=== PATIENT | female | born 1990 | race Caucasian/White ===

== ENCOUNTER 2023-04-13 05:07 | Emergency (ER) | payer OTHER, SELFPAY ==
--- OUTSIDE RECORDS SUMMARY | 2023-04-13 05:18 | XMS REPORT | Continuity of Care Document ---
:1990 Author Organization [facility] t Address [address] [place] [address] [address] [place] [address] Care Team Providers Name Role Phone GRADY JUÁREZ Primary Care Physician Unavailable Vida Louis Attending Clinician Unavailable CARMELA MEDRANO Attending Clinician Unavailable Carmela Medrano DO Attending Clinician ARIANA HERNANDEZ Attending Clinician Unavailable BETO MCCAULEY Attending Clinician Unavailable JOSE OLIVER Attending Clinician Unavailable Jose Oliver MD Attending Clinician Christiane Gallo DO Attending Clinician Nadege Benjamin DO Attending Clinician Pcp-Lab Attending Clinician Unavailable Ariana Hernandez DO Attending Clinician Beto Mccauley MD Attending Clinician Grady Juárez DO Attending Clinician LUIS AREVALO Attending Clinician Unavailable KELLY WHITE Attending Clinician Unavailable PETER PATEL Attending Clinician Unavailable Tonya Kilgore Attending Clinician Unavailable Susie Lawton MD Attending Clinician SUSIE LAWTON Attending Clinician Unavailable STEEN KELTON Attending Clinician Unavailable Luis Arevalo DO Attending Clinician [phone] Federico Hernandez MD Attending Clinician FEDERICO HERNANDEZ Attending Clinician Unavailable Doctor Unassigned, [place] Attending Clinician Unavailable PERNELL MYLES Attending Clinician Unavailable UNKNOWN, ATTENDING Attending Clinician Unavailable Eli CORTES, Mikal Attending Clinician Unknown, Attending Attending Clinician Unavailable RANDI MARCOS Attending Clinician Unavailable Ashkan Montgomery DO Attending Clinician Randi Marcos MD Attending Clinician Rodri PACK, Margot Attending Clinician Roxanna VELAZQUEZ, Samantha Hazel Attending Clinician Charles CORTES, Kyaw Patel Attending Clinician KYAW SOTO Attending Clinician Unavailable Carmela Rawls MD Attending Clinician Leonel Stockton MD Attending Clinician Сергей Dale MD Attending Clinician Mary Javier Attending Clinician Unavailable Janice Alexis Attending Clinician Unavailable Talisha Kate Attending Clinician Deidre [facility]y F Attending Clinician Unavailable LUCIA PINEDA Attending Clinician Unavailable Mihai Pena MD Attending Clinician Pallavi Chong MD Attending Clinician Lucia Pineda MD Attending Clinician Ramon Prasad Attending Clinician Unavailable SAHIL OWENS Attending Clinician Unavailable Chiquita Grady Attending Clinician Unavailable Viky Owusu RN Attending Clinician Dary Wang Attending Clinician Lluvia Juárez Attending Clinician Unavailable Ted Price Attending Clinician Unavailable Ezio Cordova Attending Clinician Unavailable Physician, No Primary or Family Admitting Clinician UnavailJOSE Frank Admitting Clinician Unavailable KYAW SOTO Admitting Clinician Unavailable Leonel Stockton MD Admitting Clinician PALLAVI CHONG Admitting Clinician Unavailable Pallavi Chong MD Admitting Clinician SAHIL OWENS Admitting Clinician Unavailable Payers Payer Name Policy Type Policy Number Effective Date Expiration Date [facility] [id number] 2021 CHOICE MEDICAID 00:00:00 Problems Condition Condition Condition Status Onset Resolution Last Treating Co mments Source Name Details Category Date Date Treatment Clinician Date Vaginal Vaginal Disease Active 2021-10 Univers discharge discharge 1-14 ity of 00:: Medical Branch Diarrhea, Diarrhea, Disease Active 2021-10 Uni vers unspecifie unspecifie 1-14 it y of d type d type 00:00: Medical Branch Hand Hand Disease Active 2021-10 Univers weakness weakness 1-14 ity of 00:00: Medical Branch Gastropare Gastropare Disease Active U nivers sis due to sis due to 4-04 it y of DM DM 00:00: Medical Branch Hypothyroi Hypothyroi Disease Active U nivers dism dism 3-25 ity of 00:00: Medical Branch Bilateral Bilateral Disease Active Uni vers hand hand 3-25 ity of swelling swelling 00:00: Medical Branch History of History of Disease Active U nivers substance substance 3-25 ity of abuse abuse 00:00: Medical Branch Diabetes Diabetes Disease Active Unive rs mellitus mellitus 6-05 ity of type 1 type 1 00:00: Medical Branch Hyperlipid Hyperlipid Disease Recurre Univers emia emia nce 6-05 ity of 00:00: Medical Branch Anxiety Anxiety Disease Active Univers 6-04 ity of 00:00: Medical Branch GERD GERD Disease Active Univers (gastroeso (gastroeso 6- it y of phageal phageal 00:00: [place] reflux reflux 00 Medical disease) disease) Branch Allergies, Adverse Reactions, Alerts Allergy Allergy Status Severity Reaction(s) Onset Inactive Treating Comm ents Source Name Type Date Date Clinician No Known DA Active U [facility] Allergie 5-29 Clear s 00:00: Vill[place] 00 [facility] CODEINE DRUG Active ITCHING Univers INGREDI 7-03 ity of 00:00: [place] 00 [facility] Branch Codeine Propensi Active Itching Univer s ty to 703 ity of adverse 00:00: [place] reaction 00 Medical s Branch No Known DA Active U [facility] Allergie 6-14 Clear s 00:00: [place] 00 [facility] Social History Social Habit Start Date Stop Date Quantity Comments Source Alcohol intake 2023-03-05 2023-03-05 Current University of 00:00:00 00:00:00 non-drinker of [facility] alcohol Branch (finding) Exposure to 2022-12-31 2023-01-10 Not sure University of SARS-CoV-2 (event) 00:00:00 12:43:00 [facility] Cigarettes smoked 2014-07-01 2014-07-01 Univers ity of current (pack per 00:00:00 00:00:00 [facility] ) - Reported Branch Cigarette 2014-07-01 2014-07-01 University of pack-years 00:00:00 00:00:00 [facility] Tobacco Comment 2014-07-01 2014-07-01 e-cigarettes Univers ity of 00:00:00 00:00:00 since February 2014; [place] Med ical daily use Branch Tobacco use and 2014-07-01 2014-07-01 Former smokeless Uni versity of exposure 00:00:00 00:00:00 tobacco user [place] Medic l [place] History of tobacco 2014-03-07 Cigarette Smoker University of use 00:00:00 [facility] Sex Ass[birth year] At [birth year] Universit y of 00:00:00 00:00:00 [facility] Smoking Status Start Date Stop Date Source Occasional tobacco smoker 2014-07-01 00:00:00 Un iversity of [facility] Medications Ordered Filled Start Stop Current Ordering Indication Dosage Frequency Signature Comments Components Source Medication Medication Date Date Medication? Clinician (SIG) Name Name NaCl 0.9% 2022- 1000mL at 999 Uni vers (NS) bolus 03-05 05-23 mL/hr, ity of infusion 18:15: 19:21 1,000 mL, [place] 1,000 mL 00 :00 IV Medical Infusion, Branch ONCE, 1 dose, On 03/05/23 at 1315, STAT insulin 2022- No 6U 6 Units, Unive rs regular 01-10 Slow IV ity of human 20:30: 19:45 Push, [place] (HUMULIN R) 00 :00 ONCE, 1 Medic al injection 6 dose, On Bran ch Units Johanne 01/10/23 at 1530, STAT
In dication for insulin: Hyperglyce shimon levETIRAcet 2022- No 1000mg 1,000 mg, Univers am (KEPPRA) 01-10 IV ity of in NACL 19:45: 20:02 Piggyback, [place] (ISO-OS) 00 :00 ONCE, 1 Medical 1,000 dose, On Branch mg/100 mL Johanne RTU 01/10/23 at 1445, Administer over 15 Minutes, 100 mL NaCl 0.9% 2022- No 2000mL at 999 Uni vers (NS) bolus 01-1030 mL/hr, ity of infusion 19:45: 22:57 2,000 mL, [place] 2,000 mL 00 :00 IV Medical Infusion, Branch ONCE, 1 dose, On Johanne 01/10/23 at 1445, STAT levETIRAcet 0 Yes [id number] 500mg Take 1 Univers am (KEPPRA) 3-30 tablet by ity of 500 mg 00:00: mouth in [place] tablet 00 the Medical morning Branch and 1 tablet in the evening. levETIRAcet 2022-0 Yes [id number] 500mg Take 1 Univers am (KEPPRA) 3-30 tablet by ity of 500 mg 00:00: mouth in [place] tablet 00 the Medical morning Branch and 1 tablet in the evening. gabapentin 2022-0 Yes [id number] 200mg Take 2 Univers 100 mg 3-27 capsules ity of capsule 00:00: by mouth [place] 00 in the Medical morning Branch and 2 capsules at noon and 2 capsules in the evening. gabapentin 2022-0 Yes [id number] 200mg Take 2 Univers 100 mg 3-27 capsules ity of capsule 00:00: by mouth [place] 00 in the Medical morning Branch and 2 capsules at noon and 2 capsules in the evening. gabapentin 3-0 Yes [id number] 200mg Take 2 Univers 100 mg 3-27 capsules ity of capsule 00:00: by mouth [place] 00 in the Medical morning Branch and 2 capsules at noon and 2 capsules in the evening. TRESIBA 2022-0 Yes [id number] INJECT 22 Univers FLEXTOUCH 2-27 UNITS ity of U-100 100 00:00: UNDER THE [place] unit/mL (3 00 SKIN AT Medica l mL) InPn BEDTIME. Branch TRESIBA 2022-0 Yes [id number] INJECT 22 Univers FLEXTOUCH 2-27 UNITS ity of U-100 100 00:00: UNDER THE [place] unit/mL (3 00 SKIN AT Medica l mL) InPn BEDTIME. Branch TRESIBA 2022-0 Yes [id number] INJECT 22 Univers FLEXTOUCH 2-27 UNITS ity of U-100 100 00:00: UNDER THE [place] unit/mL (3 00 SKIN AT Medica l mL) InPn BEDTIME. Branch TRESIBA 2022-0 Yes [id number] INJECT 22 Univers FLEXTOUCH 2-27 UNITS ity of U-100 100 00:00: UNDER THE [place] unit/mL (3 00 SKIN AT Medica l mL) InPn BEDTIME. Branch metoclopram 3-0 Yes [id number] 10mg Take 10 mL Univers guadalupe HCl 5 2-02 by mouth ity of mg/5 mL 00:00: in the [place] solution 00 morning Medical and 10 mL Branch at noon and 10 mL in the evening. Take with meals. metoclopram 3-0 Yes [id number] 10mg Take 10 mL Univers guadalupe HCl 5 2-02 by mouth ity of mg/5 mL 00:00: in the [place] solution 00 morning Medical and 10 mL Branch at noon and 10 mL in the evening. Take with meals. metoclopram 2023-0 Yes [id number] 10mg Take 10 mL Univers guadalupe HCl 5 2-02 by mouth ity of mg/5 mL 00:00: in the [place] solution 00 morning Medical and 10 mL Branch at noon and 10 mL in the evening. Take with meals. metoclopram 2023-0 Yes [id number] 10mg Take 10 mL Univers guadalupe HCl 5 2-02 by mouth ity of mg/5 mL 00:00: in the [place] solution 00 morning Medical and 10 mL Branch at noon and 10 mL in the evening. Take with meals. proMETHazin Yes [id number] 12.5mg Take 1 Univers e 12.5 mg 1-26 tablet by ity o f tablet 00:00: mouth [place] 00 every 4 Medical (four) Branch hours as needed for Nausea and Vomiting (N/V). proMETHazin Yes [id number] 12.5mg Take 1 Univers e 12.5 mg 1-26 tablet by ity o f tablet 00:00: mouth [place] 00 every 4 Medical (four) Branch hours as needed for Nausea and Vomiting (N/V). proMETHazin Yes [id number] 12.5mg Take 1 Univers e 12.5 mg 1-26 tablet by ity o f tablet 00:00: mouth [place] 00 every 4 Medical (four) Branch hours as needed for Nausea and Vomiting (N/V). proMETHazin Yes [id number] 12.5mg Take 1 Univers e 12.5 mg 1-26 tablet by ity o f tablet 00:00: mouth [place] 00 every 4 Medical (four) Branch hours as needed for Nausea and Vomiting (N/V). proMETHazin Yes [id number] 12.5mg Take 1 Univers e 12.5 mg 1-26 tablet by ity o f tablet 00:00: mouth [place] 00 every 4 Medical (four) Branch hours as needed for Nausea and Vomiting (N/V). proMETHazin Yes [id number] 12.5mg Take 1 Univers e 12.5 mg 1-26 tablet by ity o f tablet 00:00: mouth [place] 00 every 4 Medical (four) Branch hours as needed for Nausea and Vomiting (N/V). omeprazole 2021-10 Yes [id number] 40mg Take 1 Univers 40 mg 2-29 capsule by ity of capsule 00:00: mouth in [place] 00 the Medical morning. Branch levothyroxi 2021-10 Yes [id number] 100ug Take 1 Univers ne 100 mcg 2-29 tablet by ity of tablet 00:00: mouth [place] 00 every Medical morning. Branch insulin 2021-10 Yes [id number] 22U inject 22 Univers degludec 2-29 Units ity of (TRESIBA 00:00: [place] FLEXTOUCH 00 skin at Medical U-100) 100 bedtime. Branc h unit/mL (3 mL) InPn insulin 2021-10 Yes [id number] 5U inject 5 U nivers aspart 2-29 Units ity of U-100 00:00: under the [place] (NOVOLOG 00 skin 4 Medical FLEXPEN (four) Branch U-100 times INSULIN) daily with 100 unit/mL meals or (3 mL) snack. injection atorvastati 2021-10 Yes [id number] 40mg Take 1 Univers n (LIPITOR) 2-29 tablet by ity of 40 mg 00:00: mouth at [place] tablet 00 bedtime. Medical Branch DULoxetine 2021-10 Yes [id number] 90mg Take 3 U nivers 30 mg 2-29 capsules ity of capsule 00:00: by mouth [place] 00 in the Medical morning. Branch gabapentin 2021-10 Yes [id number] 200mg Take 2 Univers 100 mg 2-29 capsules ity of capsule 00:00: by mouth [place] 00 in the Medical morning Branch and 2 capsules at noon and 2 capsules in the evening. omeprazole 2021-10 Yes 40mg Take 1 Unive rs 40 mg 2-29 capsule by ity of capsule 00:00: mouth in [place] 00 the Medical morning. Branch levothyroxi 2021-10 Yes [id number] 100ug Take 1 Univers ne 100 mcg 2-29 tablet by ity of tablet 00:00: mouth [place] 00 every Medical morning. Branch insulin 2021-10 Yes [id number] 22U inject 22 Univers degludec 2-29 Units ity of (TRESIBA [facility] skin at Medical U-100) 100 bedtime. Branc h unit/mL (3 mL) InPn insulin 2021-10 Yes [id number] 5U inject 5 U nivers aspart 2-29 Units ity of U-100 00:00: under the [place] (NOVOLOG 00 skin 4 Medical FLEXPEN (four) Branch U-100 times INSULIN) daily with 100 unit/mL meals or (3 mL) snack. injection atorvastati 2021-10 Yes [id number] 40mg Take 1 Univers n (LIPITOR) 2-29 tablet by ity of 40 mg 00:00: mouth at [place] tablet 00 bedtime. Medical Branch DULoxetine 2021-10 Yes [id number] 90mg Take 3 U nivers 30 mg 2-29 capsules ity of capsule 00:00: by mouth [place] 00 in the Medical morning. Branch gabapentin 2021-10 Yes [id number] 200mg Take 2 Univers 100 mg 2-29 capsules ity of capsule 00:00: by mouth [place] 00 in the Medical morning Branch and 2 capsules at noon and 2 capsules in the evening. omeprazole 2021-10 Yes 40mg Take 1 Unive rs 40 mg 2-29 capsule by ity of capsule 00:00: mouth in [place] 00 the Medical morning. Branch levothyroxi 2021-10 Yes [id number] 100ug Take 1 Univers ne 100 mcg 2-29 tablet by ity of tablet 00:00: mouth [place] 00 every Medical morning. Branch insulin 2021-10 Yes [id number] 22U inject 22 Univers degludec 2-29 Units ity of (TRESIBA 00:00: [facility] skin at Medical U-100) 100 bedtime. Branc h unit/mL (3 mL) InPn insulin 2021-10 Yes [id number] 5U inject 5 U nivers aspart 2-29 Units ity of U-100 00:00: under the [place] (NOVOLOG 00 skin 4 Medical FLEXPEN (four) Branch U-100 times INSULIN) daily with 100 unit/mL meals or (3 mL) snack. injection atorvastati 2021-10 Yes [id number] 40mg Take 1 Univers n (LIPITOR) 2-29 tablet by ity of 40 mg 00:00: mouth at [place] tablet 00 bedtime. Medical Branch DULoxetine 2021-10 Yes [id number] 90mg Take 3 U nivers 30 mg 2-29 capsules ity of capsule 00:00: by mouth [place] 00 in the Medical morning. Branch gabapentin 2021-10 Yes [id number] 200mg Take 2 Univers 100 mg 2-29 capsules ity of capsule 00:00: by mouth [place] 00 in the Medical morning Branch and 2 capsules at noon and 2 capsules in the evening. omeprazole 2021-10 Yes 40mg Take 1 Unive rs 40 mg 2-29 capsule by ity of capsule 00:00: mouth in [place] 00 the Medical morning. Branch levothyroxi 2021-10 Yes [id number] 100ug Take 1 Univers ne 100 mcg 2-29 tablet by ity of tablet 00:00: mouth [place] 00 every Medical morning. Branch insulin 2021-10 Yes [id number] 22U inject 22 Univers degludec 2-29 Units ity of (TRESIBA 00:00: [facility] skin at Medical U-100) 100 bedtime. Branc h unit/mL (3 mL) InPn insulin 2021-10 Yes [id number] 5U inject 5 U nivers aspart 2-29 Units ity of U-100 00:00: under the [place] (NOVOLOG 00 skin 4 Medical FLEXPEN (four) Branch U-100 times INSULIN) daily with 100 unit/mL meals or (3 mL) snack. injection atorvastati 2021-10 Yes [id number] 40mg Take 1 Univers n (LIPITOR) 2-29 tablet by ity of 40 mg 00:00: mouth at [place] tablet 00 bedtime. Medical Branch DULoxetine 2021-10 Yes [id number] 90mg Take 3 U nivers 30 mg 2-29 capsules ity of capsule 00:00: by mouth [place] 00 in the Medical morning. Branch gabapentin 2021-10 Yes [id number] 200mg Take 2 Univers 100 mg 2-29 capsules ity of capsule 00:00: by mouth [place] 00 in the Medical morning Branch and 2 capsules at noon and 2 capsules in the evening. omeprazole 2021-10 Yes 40mg Take 1 Unive rs 40 mg 2-29 capsule by ity of capsule 00:00: mouth in [place] 00 the Medical morning. Branch levothyroxi 2021-10 Yes [id number] 100ug Take 1 Univers ne 100 mcg 2-29 tablet by ity of tablet 00:00: mouth [place] 00 every Medical morning. Branch insulin 2021-10 Yes [id number] 22U inject 22 Univers degludec 2-29 Units ity of (TRESIBA 00:00: [facility] skin at Medical U-100) 100 bedtime. Branc h unit/mL (3 mL) InPn insulin 2021-10 Yes [id number] 5U inject 5 U nivers aspart 2-29 Units ity of U-100 00:00: under the [place] (NOVOLOG 00 skin 4 Medical FLEXPEN (four) Branch U-100 times INSULIN) daily with 100 unit/mL meals or (3 mL) snack. injection atorvastati 2021-10 Yes [id number] 40mg Take 1 Univers n (LIPITOR) 2-29 tablet by ity of 40 mg 00:00: mouth at [place] tablet 00 bedtime. Medical Branch DULoxetine 2021-10 Yes [id number] 90mg Take 3 U nivers 30 mg 2-29 capsules ity of capsule 00:00: by mouth [place] 00 in the Medical morning. Branch gabapentin 2021-10 Yes [id number] 200mg Take 2 Univers 100 mg 2-29 capsules ity of capsule 00:00: by mouth [place] 00 in the Medical morning Branch and 2 capsules at noon and 2 capsules in the evening. omeprazole 2021-10 Yes 40mg Take 1 Unive rs 40 mg 2-29 capsule by ity of capsule 00:00: mouth in [place] 00 the Medical morning. Branch levothyroxi 2021-10 Yes [id number] 100ug Take 1 Univers ne 100 mcg 2-29 tablet by ity of tablet 00:00: mouth [place] 00 every Medical morning. Branch insulin 2021-10 Yes [id number] 22U inject 22 Univers degludec 2-29 Units ity of (TRESIBA 00:00: [facility] skin at Medical U-100) 100 bedtime. Branc h unit/mL (3 mL) InPn insulin 2021-10 Yes [id number] 5U inject 5 U nivers aspart 2-29 Units ity of U-100 00:00: under the [place] (NOVOLOG 00 skin 4 Medical FLEXPEN (four) Branch U-100 times INSULIN) daily with 100 unit/mL meals or (3 mL) snack. injection atorvastati 2021-10 Yes [id number] 40mg Take 1 Univers n (LIPITOR) 2-29 tablet by ity of 40 mg 00:00: mouth at [place] tablet 00 bedtime. Medical Branch DULoxetine 2021-10 Yes [id number] 90mg Take 3 U nivers 30 mg 2-29 capsules ity of capsule 00:00: by mouth [place] 00 in the Medical morning. Branch gabapentin 2021-10 Yes [id number] 200mg Take 2 Univers 100 mg 2-29 capsules ity of capsule 00:00: by mouth [place] 00 in the Medical morning Branch and 2 capsules at noon and 2 capsules in the evening. omeprazole 2021-10 Yes 40mg Take 1 Unive rs 40 mg 2-29 capsule by ity of capsule 00:00: mouth in [place] 00 the Medical morning. Branch levothyroxi 2021-10 Yes [id number] 100ug Take 1 Univers ne 100 mcg 2-29 tablet by ity of tablet 00:00: mouth [place] 00 every Medical morning. Branch insulin 2021-10 Yes [id number] 22U inject 22 Univers degludec 2-29 Units ity of (TRESIBA 00:00: [place] the [place] FLEXTOUCH 00 skin at Medical U-100) 100 bedtime. Branc h unit/mL (3 mL) InPn insulin 2021-10 Yes [id number] 5U inject 5 U nivers aspart 2-29 Units ity of U-100 00:00: under the [place] (NOVOLOG 00 skin 4 Medical FLEXPEN (four) Branch U-100 times INSULIN) daily with 100 unit/mL meals or (3 mL) snack. injection atorvastati 2021-10 Yes [id number] 40mg Take 1 Univers n (LIPITOR) 2-29 tablet by ity of 40 mg 00:00: mouth at [place] tablet 00 bedtime. Medical Branch DULoxetine 2021-10 Yes [id number] 90mg Take 3 U nivers 30 mg 2-29 capsules ity of capsule 00:00: by mouth [place] 00 in the Medical morning. Branch gabapentin 2021-10 Yes [id number] 200mg Take 2 Univers 100 mg 2-29 capsules ity of capsule 00:00: by mouth [place] 00 in the Medical morning Branch and 2 capsules at noon and 2 capsules in the evening. omeprazole 2021-10 Yes 40mg Take 1 Unive rs 40 mg 2-29 capsule by ity of capsule 00:00: mouth in [place] 00 the Medical morning. Branch levothyroxi 2021-10 Yes [id number] 100ug Take 1 Univers ne 100 mcg 2-29 tablet by ity of tablet 00:00: mouth [place] 00 every Medical morning. Branch insulin 2021-10 Yes [id number] 5U inject 5 U nivers aspart 2-29 Units ity of U-100 00:00: under the [place] (NOVOLOG 00 skin 4 Medical FLEXPEN (four) Branch U-100 times INSULIN) daily with 100 unit/mL meals or (3 mL) snack. injection atorvastati 2021-10 Yes [id number] 40mg Take 1 Univers n (LIPITOR) 2-29 tablet by ity of 40 mg 00:00: mouth at [place] tablet 00 bedtime. Medical Branch DULoxetine 2021-10 Yes [id number] 90mg Take 3 U nivers 30 mg 2-29 capsules ity of capsule 00:00: by mouth [place] 00 in the Medical morning. Branch gabapentin 2021-10 Yes [id number] 200mg Take 2 Univers 100 mg 2-29 capsules ity of capsule 00:00: by mouth [place] 00 in the Medical morning Branch and 2 capsules at noon and 2 capsules in the evening. omeprazole 2021-10 Yes 40mg Take 1 Unive rs 40 mg 2-29 capsule by ity of capsule 00:00: mouth in [place] 00 the Medical morning. Branch levothyroxi 2021-10 Yes [id number] 100ug Take 1 Univers ne 100 mcg 2-29 tablet by ity of tablet 00:00: mouth [place] 00 every Medical morning. Branch insulin 2021-10 Yes [id number] 5U inject 5 U nivers aspart 2-29 Units ity of U-100 00:00: under the [place] (NOVOLOG 00 skin 4 Medical FLEXPEN (four) Branch U-100 times INSULIN) daily with 100 unit/mL meals or (3 mL) snack. injection atorvastati 2021-10 Yes [id number] 40mg Take 1 Univers n (LIPITOR) 2-29 tablet by ity of 40 mg 00:00: mouth at [place] tablet 00 bedtime. Medical Branch DULoxetine 2021-10 Yes [id number] 90mg Take 3 U nivers 30 mg 2-29 capsules ity of capsule 00:00: by mouth [place] 00 in the Medical morning. Branch omeprazole 2021-10 Yes 40mg Take 1 Unive rs 40 mg 2-29 capsule by ity of capsule 00:00: mouth in [place] 00 the Medical morning. Branch levothyroxi 2021-10 Yes [id number] 100ug Take 1 Univers ne 100 mcg 2-29 tablet by ity of tablet 00:00: mouth [place] 00 every Medical morning. Branch insulin 2021-10 Yes [id number] 5U inject 5 U nivers aspart 2-29 Units ity of U-100 00:00: under the [place] (NOVOLOG 00 skin 4 Medical FLEXPEN (four) Branch U-100 times INSULIN) daily with 100 unit/mL meals or (3 mL) snack. injection atorvastati 2021-10 Yes [id number] 40mg Take 1 Univers n (LIPITOR) 2-29 tablet by ity of 40 mg 00:00: mouth at [place] tablet 00 bedtime. Medical Branch DULoxetine 2021-10 Yes [id number] 90mg Take 3 U nivers 30 mg 2-29 capsules ity of capsule 00:00: by mouth [place] 00 in the Medical morning. Branch omeprazole 2021-10 Yes 40mg Take 1 Unive rs 40 mg 2-29 capsule by ity of capsule 00:00: mouth in [place] 00 the Medical morning. Branch levothyroxi 2021-10 Yes [id number] 100ug Take 1 Univers ne 100 mcg 2-29 tablet by ity of tablet 00:00: mouth [place] 00 every Medical morning. Branch insulin 2021-10 Yes [id number] 5U inject 5 U nivers aspart 2-29 Units ity of U-100 00:00: under the [place] (NOVOLOG 00 skin 4 Medical FLEXPEN (four) Branch U-100 times INSULIN) daily with 100 unit/mL meals or (3 mL) snack. injection atorvastati 2021-10 Yes [id number] 40mg Take 1 Univers n (LIPITOR) 2-29 tablet by ity of 40 mg 00:00: mouth at [place] tablet 00 bedtime. Medical Branch DULoxetine 2021-10 Yes [id number] 90mg Take 3 U nivers 30 mg 2-29 capsules ity of capsule 00:00: by mouth [place] 00 in the Medical morning. Branch gabapentin 2021-10- No [id number] 200mg Take 2 Univers 100 mg 2-29 03-27 capsules ity of capsule 00:00: 00:00 by mouth [place] 00 :00 in the Medical morning Branch and 2 capsules at noon and 2 capsules in the evening. insulin 2021-10- No [id number] 22U inject 22 Univers degludec 2-29 02-27 Units ity of (TRESIBA 00:00: 00:00 under the [place] FLEXTOUCH 00 :00 skin at Medical U-100) 100 bedtime. Branc h unit/mL (3 mL) InPn fluconazole 2021-10- No [id number] 150mg Take 1 Univers (DIFLUCAN) 2- 12-30 tablet by ity of 150 mg 00:00: 05:59 mouth [place] tablet 00 :00 now for 1 Medical dose. Branch fluconazole 2021-10- No [id number] 150mg Take 1 Univers (DIFLUCAN) 2- 12-30 tablet by ity of 150 mg 00:00: 05:59 mouth [place] tablet 00 :00 now for 1 Medical dose. Branch fluconazole 2021-10- No [id number] 150mg Take 1 Univers (DIFLUCAN) 2- 12-30 tablet by ity of 150 mg 00:00: 05:59 mouth [place] tablet 00 :00 now for 1 Medical dose. Branch fluconazole 2021-10- No [id number] 150mg Take 1 Univers (DIFLUCAN) 2- 12-30 tablet by ity of 150 mg 00:00: 05:[place] 00 :00 now for 1 Medical dose. Branch pregabalin 2021-10- No [id number] 25mg Take 1 [facility] (LYRICA) 25 2-29 12-29 capsule by i ty of mg capsule 00:00: 00:00 mouth in [place] 00 :00 the Medical morning Branch and 1 capsule at noon and 1 capsule in the evening. pregabalin 2021-10- No [id number] 25mg Take 1 [facility] (LYRICA) 25 2-29 12-29 capsule by i ty of mg capsule 00:00: 00:00 mouth in [place] 00 :00 the Medical morning Branch and 1 capsule at noon and 1 capsule in the evening. pregabalin 2021-10- No [id number] 25mg Take 1 [facility] (LYRICA) 25 2-29 12-29 capsule by i ty of mg capsule 00:00: 00:00 mouth in [place] 00 :00 the Medical morning Branch and 1 capsule at noon and 1 capsule in the evening. insulin 2021-10 Yes [id number] 5U inject 5 U nivers aspart 2-07 Units ity of U-100 00:00: under the [place] (NOVOLOG 00 skin 4 Medical FLEXPEN (four) Branch U-100 times INSULIN) daily with 100 unit/mL meals or (3 mL) snack. injection insulin 2021-10- No [id number] 5U inject 5 [facility] aspart 2-07 12-29 Units ity of U-100 00:00: 00:00 under the [place] (NOVOLOG 00 :00 skin 4 Medical FLEXPEN (four) Branch U-100 times INSULIN) daily with 100 unit/mL meals or (3 mL) snack. injection insulin 2021-10- No [id number] 5U inject 5 [facility] aspart 2- 12-29 Units ity of U-100 00:00: 00:00 under the [place] (NOVOLOG 00 :00 skin 4 Medical FLEXPEN (four) Branch U-100 times INSULIN) daily with 100 unit/mL meals or (3 mL) snack. injection insulin 2021-10- No [id number] 5U inject 5 [facility] aspart 2 12-29 Units ity of U-100 00:00: 00:00 under the [place] (NOVOLOG 00 :00 skin 4 Medical FLEXPEN (four) Branch U-100 times INSULIN) daily with 100 unit/mL meals or (3 mL) snack. injection insulin 2021-10 Yes [id number] 22U INJECT 22 [facility] degludec 1-29 UNITS ity of (TRESIBA 00:00: [place] FLEXTOUCH 00 SKIN AT Medical U-100) 100 BEDTIME. Branc h unit/mL (3 mL) InPn insulin 2021-10 Yes [id number] 22U INJECT 22 [facility] degludec 1-29 UNITS ity of (TRESIBA 00:00: [place] FLEXTOUCH 00 SKIN AT Medical U-100) 100 BEDTIME. Branc h unit/mL (3 mL) InPn insulin 2021-10- No [id number] 22U INJECT 22 [facility] degludec 1-29 12-29 UNITS ity of (TRESIBA 00:00: 00:00 UNDER THE [place] FLEXTOUCH 00 :00 SKIN AT Medical U-100) 100 BEDTIME. Branc h unit/mL (3 mL) InPn insulin 2021-10- No [id number] 22U INJECT 22 [facility] degludec 1-29 12-29 UNITS ity of (TRESIBA 00:00: 00:00 UNDER THE [place] FLEXTOUCH 00 :00 SKIN AT Medical U-100) 100 BEDTIME. Branc h unit/mL (3 mL) InPn insulin 2021-10- No [id number] 22U INJECT 22 [facility] degludec 1-29 12-29 UNITS ity of (TRESIBA 00:00: 00:00 UNDER THE [place] FLEXTOUCH 00 :00 SKIN AT Medical U-100) 100 BEDTIME. Branc h unit/mL (3 mL) InPn metroNIDAZO 2021-10- No [id number] 500mg Take 2 [facility] LE 250 mg 1-17 11-27 tablets by ity of tablet 00:00: 05:59 mouth [place] 00 :00 every 12 [facility] ([facility] Branch hours for 9 days. metroNIDAZO 2021-10- No [id number] 500mg Take 2 [facility] LE 250 mg 1-17 11-27 tablets by ity of tablet 00:00: 05:59 mouth [place] 00 :00 every 12 [facility] ([facility]) [place] hours for 9 days. gabapentin 2021-10 Yes [id number] 100mg Take 1 [facility] 100 mg 1-14 capsule by ity of capsule 00:00: mouth in [place] [address] the [facility] and 1 capsule at noon and 1 capsule in the evening. naproxen 2021-10 Yes [id number] 250mg Take 1 [place] 250 mg 1-14 tablet by ity of tablet 00:00: mouth in [place] [address] the [facility] and 1 tablet in the evening. Take with meals. gabapentin 2021-10 Yes [id number] 100mg Take 1 [facility] 100 mg 1-14 capsule by ity of capsule 00:00: mouth in [place] [address] the [facility] and 1 capsule at noon and 1 capsule in the evening. naproxen 2021-10 Yes [id number] 250mg Take 1 [place] 250 mg 1-14 tablet by ity of tablet 00:00: mouth in [place] [address] the [facility] and 1 tablet in the evening. Take with meals. gabapentin 2021-10 Yes [id number] 100mg Take 1 [facility] 100 mg 1-14 capsule by ity of capsule 00:00: mouth in [address] and 1 capsule at noon and 1 capsule in the evening. naproxen 2021-10 Yes [id number] 250mg Take 1 [place] 250 mg 1-14 tablet by ity of tablet 00:00: mouth in [address] morning [place] and 1 tablet in the evening. Take with meals. gabapentin 2021-10 Yes [id number] 100mg Take 1 [facility] 100 mg 1-14 capsule by ity of capsule 00:00: mouth in [address] morning [place] and 1 capsule at noon and 1 capsule in the evening. naproxen 2021-10 Yes [id number] 250mg Take 1 [place] 250 mg 1-14 tablet by ity of tablet 00:00: mouth in [address] morning [place] and 1 tablet in the evening. Take with meals. gabapentin 2021-10 Yes [id number] 100mg Take 1 [facility] 100 mg 1-14 capsule by ity of capsule 00:00: mouth in [address] and 1 capsule at noon and 1 capsule in the evening. naproxen 2021-10 Yes [id number] 250mg Take 1 [place] 250 mg 1-14 tablet by ity of tablet 00:00: mouth in [address] and 1 tablet in the evening. Take with meals. gabapentin 2021-10 Yes [id number] 100mg Take 1 [facility] 100 mg 1-14 capsule by ity of capsule 00:00: mouth in [address] and 1 capsule at noon and 1 capsule in the evening. naproxen 2021-10 Yes [id number] 250mg Take 1 [place] 250 mg 1-14 tablet by ity of tablet 00:00: mouth in [address] and 1 tablet in the evening. Take with meals. gabapentin 2021-10 Yes [id number] 100mg Take 1 [facility] 100 mg 1-14 capsule by ity of capsule 00:00: mouth in [address] and 1 capsule at noon and 1 capsule in the evening. naproxen 2021-10 Yes [id number] 250mg Take 1 [place] 250 mg 1-14 tablet by ity of tablet 00:00: mouth in [address] and 1 tablet in the evening. Take with meals. gabapentin 2021-10 Yes [id number] 100mg Take 1 [facility] 100 mg 1-14 capsule by ity of capsule 00:00: mouth in [address] and 1 capsule at noon and 1 capsule in the evening. naproxen 2021-10 Yes [id number] 250mg Take 1 [place] 250 mg 1-14 tablet by ity of tablet 00:00: mouth in [place] [address] the Medical morning [place] and 1 tablet in the evening. Take with meals. gabapentin 2021-10 Yes [id number] 100mg Take 1 [facility] 100 mg 1-14 capsule by ity of capsule 00:00: mouth in [place] [address] the Medical morning [place] and 1 capsule at noon and 1 capsule in the evening. naproxen 2021-10 Yes [id number] 250mg Take 1 [place] 250 mg 1-14 tablet by ity of tablet 00:00: mouth in [place] [address] the Medical morning [place] and 1 tablet in the evening. Take with meals. naproxen 2021-10 Yes [id number] 250mg Take 1 [place] 250 mg 1-14 tablet by ity of tablet 00:00: mouth in [place] [address] the [facility] morning [place] and 1 tablet in the evening. Take with meals. naproxen 2021-10 Yes [id number] 250mg Take 1 [place] 250 mg 1-14 tablet by ity of tablet 00:00: mouth in [place] [address] the [facility] morning [place] and 1 tablet in the evening. Take with meals. naproxen 2021-10 Yes [id number] 250mg Take 1 [place] 250 mg 1-14 tablet by ity of tablet 00:00: mouth in [place] [address] the [facility] morning [place] and 1 tablet in the evening. Take with meals. naproxen 2021-10 Yes [id number] 250mg Take 1 [place] 250 mg 1-14 tablet by ity of tablet 00:00: mouth in [place] [address] the [facility] morning [place] and 1 tablet in the evening. Take with meals. naproxen 2021-10 Yes [id number] 250mg Take 1 [place] 250 mg 1-14 tablet by ity of tablet 00:00: mouth in [address] morning [place] and 1 tablet in the evening. Take with meals. naproxen 2021-10 Yes [id number] 250mg Take 1 [place] 250 mg 1-14 tablet by ity of tablet 00:00: mouth in [address] morning [place] and 1 tablet in the evening. Take with meals. naproxen 2021-10 Yes [id number] 250mg Take 1 [place] 250 mg 1-14 tablet by ity of tablet 00:00: mouth in [place] 00 the Medical morning Branch and 1 tablet in the evening. Take with meals. naproxen 2021-10 Yes [id number] 250mg Take 1 [place] 250 mg 1-14 tablet by ity of tablet 00:00: mouth in [place] 00 the Medical morning Branch and 1 tablet in the evening. Take with meals. naproxen 2021-10 Yes [id number] 250mg Take 1 [place] 250 mg 1-14 tablet by ity of tablet 00:00: mouth in [place] 00 the Medical morning Branch and 1 tablet in the evening. Take with meals. naproxen 2021-10 Yes [id number] 250mg Take 1 [place] 250 mg 1-14 tablet by ity of tablet 00:00: mouth in [place] 00 the Medical morning Branch and 1 tablet in the evening. Take with meals. naproxen 2021-10 Yes [id number] 250mg Take 1 [place] 250 mg 1-14 tablet by ity of tablet 00:00: mouth in [place] 00 the Medical morning Branch and 1 tablet in the evening. Take with meals. gabapentin 2021-10- No [id number] 100mg Take 1 [facility] 100 mg 1-14 12-29 capsule by ity of capsule 00:00: 00:00 mouth in [place] 00 :00 the Medical morning Branch and 1 capsule at noon and 1 capsule in the evening. gabapentin 2021-10- No [id number] 100mg Take 1 [facility] 100 mg 1-14 12-29 capsule by ity of capsule 00:00: 00:00 mouth in [place] 00 :00 the Medical morning Branch and 1 capsule at noon and 1 capsule in the evening. gabapentin 2021-10- No [id number] 100mg Take 1 [facility] 100 mg 1-14 12-29 capsule by ity of capsule 00:00: 00:00 mouth in [place] 00 :00 the Medical morning Branch and 1 capsule at noon and 1 capsule in the evening. proMETHazin 2021-10 Yes [id number] 12.5mg Take 1 [facility] e 12.5 mg 1-09 tablet by ity o f tablet 00:00: mouth [place] 00 every 4 Medical (four) Branch hours as needed for Nausea and Vomiting (N/V). proMETHazin 2021-10 Yes [id number] 12.5mg Take 1 [facility] e 12.5 mg 1-09 tablet by ity o f tablet 00:00: mouth [place] 00 every 4 Medical (four) Branch hours as needed for Nausea and Vomiting (N/V). proMETHazin 2021-10 Yes [id number] 12.5mg Take 1 [facility] e 12.5 mg 1-09 tablet by ity o f tablet 00:00: mouth [place] 00 every 4 Medical (four) Branch hours as needed for Nausea and Vomiting (N/V). proMETHazin 2021-10 Yes [id number] 12.5mg Take 1 [facility] e 12.5 mg 1-09 tablet by ity o f tablet 00:00: mouth [place] 00 every 4 Medical (four) Branch hours as needed for Nausea and Vomiting (N/V). proMETHazin 2021-10 Yes [id number] 12.5mg Take 1 [facility] e 12.5 mg 1-09 tablet by ity o f tablet 00:00: mouth [place] 00 every 4 Medical (four) Branch hours as needed for Nausea and Vomiting (N/V). proMETHazin 2021-10 Yes [id number] 12.5mg Take 1 [facility] e 12.5 mg 1-09 tablet by ity o f tablet 00:00: mouth [place] 00 every 4 Medical (four) Branch hours as needed for Nausea and Vomiting (N/V). proMETHazin 2021-10 Yes [id number] 12.5mg Take 1 [facility] e 12.5 mg 1-09 tablet by ity o f tablet 00:00: mouth [place] 00 every 4 Medical (four) Branch hours as needed for Nausea and Vomiting (N/V). proMETHazin 2021-10 Yes [id number] 12.5mg Take 1 [facility] e 12.5 mg 1-09 tablet by ity o f tablet 00:00: mouth [place] 00 every 4 Medical (four) Branch hours as needed for Nausea and Vomiting (N/V). proMETHazin 2021-10 Yes [id number] 12.5mg Take 1 [facility] e 12.5 mg 1-09 tablet by ity o f tablet 00:00: mouth [place] 00 every 4 Medical (four) Branch hours as needed for Nausea and Vomiting (N/V). proMETHazin 2021-10 Yes [id number] 12.5mg Take 1 [facility] e 12.5 mg 1-09 tablet by ity o f tablet 00:00: mouth [place] 00 every 4 Medical (four) Branch hours as needed for Nausea and Vomiting (N/V). proMETHazin 2021-10 Yes [id number] 12.5mg Take 1 [facility] e 12.5 mg 1-09 tablet by ity o f tablet 00:00: mouth [place] 00 every 4 Medical (four) Branch hours as needed for Nausea and Vomiting (N/V). proMETHazin 2021-10 Yes [id number] 12.5mg Take 1 [facility] e 12.5 mg 1-09 tablet by ity o f tablet 00:00: mouth [place] 00 every 4 Medical (four) Branch hours as needed for Nausea and Vomiting (N/V). proMETHazin 2021-10 Yes [id number] 12.5mg Take 1 [facility] e 12.5 mg 1-09 tablet by ity o f tablet 00:00: mouth [place] 00 every 4 Medical (four) Branch hours as needed for Nausea and Vomiting (N/V). proMETHazin 2021-10 Yes [id number] 12.5mg Take 1 [facility] e 12.5 mg 1-09 tablet by ity o f tablet 00:00: mouth [place] 00 every 4 Medical (four) Branch hours as needed for Nausea and Vomiting (N/V). proMETHazin 2021-103- No [id number] 12.5mg Take 1 [facility] e 12.5 mg 1-09 01-24 tablet by ity of tablet 00:00: 00:00 mouth [place] 00 :00 every 4 Medical (four) Branch hours as needed for Nausea and Vomiting (N/V). omeprazole 2021-10 Yes [id number] 40mg Take 1 [facility] 40 mg 1-08 capsule by ity of capsule 00:00: mouth in [place] 00 the Medical morning. Branch omeprazole 2021-10 Yes [id number] 40mg Take 1 [facility] 40 mg 1-08 capsule by ity of capsule 00:00: mouth in [place] 00 the Medical morning. Branch omeprazole 2021-10 Yes [id number] 40mg Take 1 [facility] 40 mg 1-08 capsule by ity of capsule 00:00: mouth in [place] 00 the Medical morning. Branch omeprazole 2021-10 Yes [id number] 40mg Take 1 [facility] 40 mg 1-08 capsule by ity of capsule 00:00: mouth in [place] 00 the Medical morning. Branch omeprazole 2021-10 Yes [id number] 40mg Take 1 [facility] 40 mg 1-08 capsule by ity of capsule 00:00: mouth in [place] 00 the Medical morning. Branch omeprazole 2021-10 Yes [id number] 40mg Take 1 [facility] 40 mg 1-08 capsule by ity of capsule 00:00: mouth in [place] the Medical morning. Branch omeprazole 2021-10 Yes [id number] 40mg Take 1 [facility] 40 mg 1-08 capsule by ity of capsule 00:00: mouth in [place] the morning. Branch omeprazole 2021-10 Yes [id number] 40mg Take 1 [facility] 40 mg 1-08 capsule by ity of capsule 00:00: mouth in [place] 00 the Medical morning. Branch omeprazole 2021-10 Yes [id number] 40mg Take 1 [facility] 40 mg 1-08 capsule by ity of capsule 00:00: mouth in [place] the morning. Branch omeprazole 2021-10 Yes [id number] 40mg Take 1 [facility] 40 mg 1-08 capsule by ity of capsule 00:00: mouth in [place] the morning. Branch omeprazole 2021-10 Yes [id number] 40mg Take 1 [facility] 40 mg 1-08 capsule by ity of capsule 00:00: mouth in [place] the Medical morning. Branch omeprazole 2021-10- No [id number] 40mg Take 1 [facility] 40 mg 1-08 12-29 capsule by ity of capsule 00:00: 00:00 mouth in [place] 00 :00 the Medical morning. Branch omeprazole 2021-10- No [id number] 40mg Take 1 [facility] 40 mg 1-08 12-29 capsule by ity of capsule 00:00: 00:00 mouth in [place] 00 :00 the Medical morning. Branch omeprazole 2021-10- No [id number] 40mg Take 1 [facility] 40 mg 1-08 12-29 capsule by ity of capsule 00:00: 00:00 mouth in [place] 00 :00 the Medical morning. Branch insulin Yes [id number] 22U INJECT 22 [facility] degludec 9-06 UNITS ity of (TRESIBA 00:00: [place] FLEXTOUCH 00 SKIN AT Medical U-100) 100 BEDTIME. Branc h unit/mL (3 mL) InPn insulin Yes [id number] 22U INJECT 22 [facility] degludec 9-06 UNITS ity of (TRESIBA 00:00: [place] THE [place] FLEXTOUCH 00 SKIN AT Medical U-100) 100 BEDTIME. Branc h unit/mL (3 mL) InPn insulin 2021-0 Yes [id number] 22U INJECT 22 [facility] degludec 9-06 UNITS ity of (TRESIBA 00:00: UND[place] THE [place] FLEXTOUCH 00 SKIN AT Medical U-100) 100 BEDTIME. Branc h unit/mL (3 mL) InPn insulin 0 Yes [id number] 22U INJECT 22 [facility] degludec 9-06 UNITS ity of (TRESIBA 00:00: UNDER THE [place] FLEXTOUCH 00 SKIN AT Medical U-100) 100 BEDTIME. Branc h unit/mL (3 mL) InPn insulin 0 Yes [id number] 22U INJECT 22 [facility] degludec 9-06 UNITS ity of (TRESIBA 00:00: UNDER THE [place] FLEXTOUCH 00 SKIN AT Medical U-100) 100 BEDTIME. Branc h unit/mL (3 mL) InPn insulin Yes [id number] 22U INJECT 22 [facility] degludec 9-06 UNITS ity of (TRESIBA 00:00: UNDER THE [place] FLEXTOUCH 00 SKIN AT Medical U-100) 100 BEDTIME. Branc h unit/mL (3 mL) InPn insulin Yes [id number] 22U INJECT 22 [facility] degludec 9-06 UNITS ity of (TRESIBA 00:00: UNDER THE [place] FLEXTOUCH 00 SKIN AT Medical U-100) 100 BEDTIME. Branc h unit/mL (3 mL) InPn insulin Yes [id number] 22U INJECT 22 [facility] degludec 9-06 UNITS ity of (TRESIBA 00:00: UNDER THE [place] FLEXTOUCH 00 SKIN AT Medical U-100) 100 BEDTIME. Branc h unit/mL (3 mL) InPn insulin 0 Yes [id number] 22U INJECT 22 [facility] degludec 9-06 UNITS ity of (TRESIBA 00:00: UNDER THE [place] FLEXTOUCH 00 SKIN AT Medical U-100) 100 BEDTIME. Branc h unit/mL (3 mL) InPn insulin 0 Yes [id number] 22U INJECT 22 [facility] degludec 9-06 UNITS ity of (TRESIBA 00:00: UNDER THE [place] FLEXTOUCH 00 SKIN AT Medical U-100) 100 BEDTIME. Branc h unit/mL (3 mL) InPn insulin 0 Yes [id number] 22U INJECT 22 [facility] degludec 9-06 UNITS ity of (TRESIBA 00:00: UNDER THE [place] FLEXTOUCH 00 SKIN AT Medical U-100) 100 BEDTIME. Branc h unit/mL (3 mL) InPn insulin 0 Yes [id number] 22U INJECT 22 [facility] degludec 9-06 UNITS ity of (TRESIBA 00:00: UNDER THE [place] FLEXTOUCH 00 SKIN AT Medical U-100) 100 BEDTIME. Branc h unit/mL (3 mL) InPn insulin 0 202- No [id number] 22U INJECT 22 [facility] degludec 9-06 11-29 UNITS ity of (TRESIBA 00:00: 00:00 UNDER THE [place] FLEXTOUCH 00 :00 SKIN AT Medical U-100) 100 BEDTIME. Branc h unit/mL (3 mL) InPn blood sugar Yes [id number] Use as [facility] diagnostic 8-10 directed ity o f (ACCU-CHEK 00:00: [place] SMARTVIEW 00 Medical TEST STRIP) Branch strip blood sugar Yes [id number] Use as [facility] diagnostic 8-10 directed ity o f (ACCU-CHEK 00:00: [place] SMARTVIEW 00 Medical TEST STRIP) Branch strip blood sugar Yes [id number] Use as [facility] diagnostic 8-10 directed ity o f (ACCU-CHEK 00:00: [place] SMARTVIEW 00 Medical TEST STRIP) Branch strip blood sugar Yes [id number] Use as [facility] diagnostic 8-10 directed ity o f (ACCU-CHEK 00:00: [place] SMARTVIEW 00 Medical TEST STRIP) Branch strip blood sugar Yes [id number] Use as [facility] diagnostic 8-10 directed ity o f (ACCU-CHEK 00:00: [place] SMARTVIEW 00 Medical TEST STRIP) Branch strip blood sugar 2022-0 Yes [id number] Use as [facility] diagnostic 8-10 directed ity o f (ACCU-CHEK 00:00: [place] SMARTVIEW 00 Medical TEST STRIP) Branch strip blood sugar 2022-0 Yes [id number] Use as [facility] diagnostic 8-10 directed ity o f (ACCU-CHEK 00:00: [place] SMARTVIEW 00 Medical TEST STRIP) Branch strip blood sugar 2022-0 Yes [id number] Use as [facility] diagnostic 8-10 directed ity o f (ACCU-CHEK 00:00: [place] SMARTVIEW 00 Medical TEST STRIP) Branch strip blood sugar 2-0 Yes [id number] Use as [facility] diagnostic 8-10 directed ity o f (ACCU-CHEK 00:00: [place] SMARTVIEW 00 Medical TEST STRIP) Branch strip blood sugar 2-0 Yes [id number] Use as [facility] diagnostic 8-10 directed ity o f (ACCU-CHEK 00:00: [place] SMARTVIEW 00 Medical TEST STRIP) Branch strip blood sugar 2022-0 Yes [id number] Use as [facility] diagnostic 8-10 directed ity o f (ACCU-CHEK 00:00: [place] SMARTVIEW 00 Medical TEST STRIP) Branch strip blood sugar 2-0 Yes [id number] Use as [facility] diagnostic 8-10 directed ity o f (ACCU-CHEK 00:00: [place] SMARTVIEW 00 Medical TEST STRIP) Branch strip blood sugar 2022-0 Yes [id number] Use as [facility] diagnostic 8-10 directed ity o f (ACCU-CHEK 00:00: [place] SMARTVIEW 00 Medical TEST STRIP) Branch strip blood sugar 2022-0 Yes [id number] Use as [facility] diagnostic 8-10 directed ity o f (ACCU-CHEK 00:00: [place] SMARTVIEW 00 Medical TEST STRIP) Branch strip blood sugar 2022-0 Yes [id number] Use as [facility] diagnostic 8-10 directed ity o f (ACCU-CHEK 00:00: [place] SMARTVIEW 00 Medical TEST STRIP) Branch strip blood sugar 2022-0 Yes [id number] Use as [facility] diagnostic 8-10 directed ity o f (ACCU-CHEK 00:00: [place] SMARTVIEW 00 Medical TEST STRIP) Branch strip blood sugar 2022-0 Yes [id number] Use as [facility] diagnostic 8-10 directed ity o f (ACCU-CHEK 00:00: [place] SMARTVIEW 00 Medical TEST STRIP) Branch strip blood sugar 2-0 Yes [id number] Use as [facility] diagnostic 8-10 directed ity o f (ACCU-CHEK 00:00: [place] SMARTVIEW 00 Medical TEST STRIP) Branch strip blood sugar 2022-0 Yes [id number] Use as [facility] diagnostic 8-10 directed ity o f (ACCU-CHEK 00:00: [place] SMARTVIEW 00 Medical TEST STRIP) Branch strip blood sugar 2022-0 Yes [id number] Use as [facility] diagnostic 8-10 directed ity o f (ACCU-CHEK 00:00: [place] SMARTVIEW 00 Medical TEST STRIP) Branch strip blood sugar 2-0 Yes [id number] Use as [facility] diagnostic 8-10 directed ity o f (ACCU-CHEK 00:00: [place] SMARTVIEW 00 Medical TEST STRIP) Branch strip blood sugar 2-0 Yes [id number] Use as [facility] diagnostic 8-10 directed ity o f (ACCU-CHEK 00:00: [place] SMARTVIEW Medical TEST STRIP) Branch strip blood sugar 2022-0 Yes [id number] Use as [facility] diagnostic 8-10 directed ity o f (ACCU-CHEK 00:00: [place] SMARTVIEW 00 Medical TEST STRIP) Branch strip blood sugar 2022-0 Yes [id number] Use as [facility] diagnostic 8-10 directed ity o f (ACCU-CHEK 00:00: [place] SMARTVIEW 00 Medical TEST STRIP) Branch strip blood sugar 2022-0 Yes [id number] Use as [facility] diagnostic 8-10 directed ity o f (ACCU-CHEK 00:00: [place] SMARTVIEW 00 Medical TEST STRIP) Branch strip blood sugar 2022-0 Yes [id number] Use as [facility] diagnostic 8-10 directed ity o f (ACCU-CHEK 00:00: [place] SMARTVIEW 00 Medical TEST STRIP) Branch strip TRESIBA 2022-0 Yes [id number] 22U INJECT 22 [facility] FLEXTOUCH 7-05 UNITS ity of U-100 100 00:00: UNDER THE [place] unit/mL (3 00 SKIN AT Medica l mL) InPn BEDTIME. Branch TRESIBA 2-0 Yes [id number] 22U INJECT 22 [facility] FLEXTOUCH 7-05 UNITS ity of U-100 100 00:00: UNDER THE [place] unit/mL (3 00 SKIN AT Medica l mL) InPn BEDTIME. Branch TRESIBA 2021- No [id number] 22U INJECT 22 [facility] FLEXTOUCH 7-05 09-06 UNITS ity of U-100 100 00:00: 00:00 UNDER THE [place] unit/mL (3 00 :00 SKIN AT Medica l mL) InPn BEDTIME. Branch proMETHazin Yes [id number] 12.5mg Take 1 [facility] e 12.5 mg 5-31 tablet by ity o f tablet 00:00: mouth [place] 00 every 4 Medical (four) Branch hours as needed for Nausea and Vomiting (N/V). proMETHazin Yes [id number] 12.5mg Take 1 [facility] e 12.5 mg 5-31 tablet by ity o f tablet 00:00: mouth [place] 00 every 4 Medical (four) Branch hours as needed for Nausea and Vomiting (N/V). proMETHazin Yes [id number] 12.5mg Take 1 [facility] e 12.5 mg 5-31 tablet by ity o f tablet 00:00: mouth [place] 00 every 4 Medical (four) Branch hours as needed for Nausea and Vomiting (N/V). proMETHazin Yes [id number] 12.5mg Take 1 [facility] e 12.5 mg 5-31 tablet by ity o f tablet 00:00: mouth [place] 00 every 4 Medical (four) Branch hours as needed for Nausea and Vomiting (N/V). proMETHazin Yes [id number] 12.5mg Take 1 [facility] e 12.5 mg 5-31 tablet by ity o f tablet 00:00: mouth [place] 00 every 4 Medical (four) Branch hours as needed for Nausea and Vomiting (N/V). proMETHazin Yes [id number] 12.5mg Take 1 [facility] e 12.5 mg 5-31 tablet by ity o f tablet 00:00: mouth [place] 00 every 4 Medical (four) Branch hours as needed for Nausea and Vomiting (N/V). proMETHazin 2021- No [id number] 12.5mg Take 1 [facility] e 12.5 mg 5-31 11-06 tablet by ity of tablet 00:00: 00:00 mouth [place] 00 :00 every 4 Medical (four) Branch hours as needed for Nausea and Vomiting (N/V). pregabalin 2022-0 2023- No [id number] 25mg Take 1 [facility] 25 mg 5-04 05-05 capsule by ity of capsule 00:00: 04:59 mouth 3 [place] 00 :00 (three) Medical times Branch daily. DULoxetine 2-0 2023- No [id number] 60mg Take 1 [facility] 60 mg 5-04 05-05 capsule by ity of capsule 00:00: 04:59 mouth [place] 00 :00 daily. Medical Branch pregabalin 2021-0 2023- No [id number] 25mg Take 1 [facility] 25 mg 5-04 05-05 capsule by ity of capsule 00:00: 04:59 mouth 3 [place] 00 :00 (three) Medical times Branch daily. DULoxetine 2021-0 2023- No [id number] 60mg Take 1 [facility] 60 mg 5-04 05-05 capsule by ity of capsule 00:00: 04:59 mouth [place] 00 :00 daily. Medical Branch pregabalin 2021-0 2023- No [id number] 25mg Take 1 [facility] 25 mg 5-04 05-05 capsule by ity of capsule 00:00: 04:59 mouth 3 [place] 00 :00 (three) Medical times Branch daily. DULoxetine 2-0 2023- No [id number] 60mg Take 1 [facility] 60 mg 5-04 05-05 capsule by ity of capsule 00:00: 04:59 mouth [place] 00 :00 daily. Medical Branch pregabalin 2021-0 2023- No [id number] 25mg Take 1 [facility] 25 mg 5-04 05-05 capsule by ity of capsule 00:00: 04:59 mouth 3 [place] 00 :00 (three) Medical times Branch daily. DULoxetine 2022-0 2023- No [id number] 60mg Take 1 [facility] 60 mg 5-04 05-05 capsule by ity of capsule 00:00: 04:59 mouth [place] 00 :00 daily. Medical Branch pregabalin 2022-0 2023- No [id number] 25mg Take 1 [facility] 25 mg 5-04 05-05 capsule by ity of capsule 00:00: 04:59 mouth 3 [place] 00 :00 (three) Medical times Branch daily. DULoxetine 2022-0 2023- No [id number] 60mg Take 1 [facility] 60 mg 5-04 05-05 capsule by ity of capsule 00:00: 04:59 mouth [place] 00 :00 daily. Medical Branch pregabalin 2022- No [id number] 25mg Take 1 [facility] 25 mg 5-04 05-05 capsule by ity of capsule 00:00: 04:59 mouth 3 [place] 00 :00 (three) Medical times Branch daily. DULoxetine 2022- No [id number] 60mg Take 1 [facility] 60 mg 5-04 05-05 capsule by ity of capsule 00:00: 04:59 mouth [place] 00 :00 daily. Medical Branch pregabalin 2022- No [id number] 25mg Take 1 [facility] 25 mg 5-04 05-05 capsule by ity of capsule 00:00: 04:59 mouth 3 [place] 00 :00 (three) Medical times Branch daily. DULoxetine 2022- No [id number] 60mg Take 1 [facility] 60 mg 5-04 05-05 capsule by ity of capsule 00:00: 04:59 mouth [place] 00 :00 daily. Medical Branch DULoxetine 2022- No [id number] 60mg Take 1 [facility] 60 mg 5-04 05-05 capsule by ity of capsule 00:00: 04:59 mouth [place] 00 :00 daily. Medical Branch DULoxetine 2022- No [id number] 60mg Take 1 [facility] 60 mg 5-04 05-05 capsule by ity of capsule 00:00: 04:59 mouth [place] 00 :00 daily. Medical Branch DULoxetine 2022- No [id number] 60mg Take 1 [facility] 60 mg 5-04 05-05 capsule by ity of capsule 00:00: 04:59 mouth [place] 00 :00 daily. Medical Branch DULoxetine 2022- No [id number] 60mg Take 1 [facility] 60 mg 5-04 05-05 capsule by ity of capsule 00:00: 04:59 mouth [place] 00 :00 daily. Medical Branch DULoxetine 2022- No [id number] 60mg Take 1 [facility] 60 mg 5-04 05-05 capsule by ity of capsule 00:00: 04:59 mouth [place] 00 :00 daily. Medical Branch DULoxetine 2022- No [id number] 60mg Take 1 [facility] 60 mg 5-04 05-05 capsule by ity of capsule 00:00: 04:59 mouth [place] 00 :00 daily. Medical Branch DULoxetine 2021-3- No [id number] 60mg Take 1 [facility] 60 mg 5-04 05-05 capsule by ity of capsule 00:00: 04:59 mouth [place] 00 :00 daily. Medical Branch DULoxetine 2021-0 3- No [id number] 60mg Take 1 [facility] 60 mg 5-04 05-05 capsule by ity of capsule 00:00: 04:59 mouth [place] 00 :00 daily. Medical Branch DULoxetine 2021-3- No [id number] 60mg Take 1 [facility] 60 mg 5-04 05-05 capsule by ity of capsule 00:00: 04:59 mouth [place] 00 :00 daily. Medical Branch DULoxetine 2021-2- No [id number] 60mg Take 1 [facility] 60 mg 5-04 12-29 capsule by ity of capsule 00:00: 00:00 mouth [place] 00 :00 daily. Medical Branch DULoxetine 2021-0 2- No [id number] 60mg Take 1 [facility] 60 mg 5-04 12-29 capsule by ity of capsule 00:00: 00:00 mouth [place] 00 :00 daily. Medical Branch DULoxetine 2021-0 2- No [id number] 60mg Take 1 [facility] 60 mg 5-04 12-29 capsule by ity of capsule 00:00: 00:00 mouth [place] 00 :00 daily. Medical Branch pregabalin 2-0 2- No [id number] 25mg Take 1 [facility] 25 mg 5-04 11-14 capsule by ity of capsule 00:00: 00:00 mouth 3 [place] 00 :00 (three) Medical times Branch daily. pregabalin 2-0 2- No [id number] 25mg Take 1 [facility] 25 mg 5-04 11-14 capsule by ity of capsule 00:00: 00:00 mouth 3 [place] 00 :00 (three) Medical times Branch daily. pregabalin 2022-0 2- No [id number] 25mg Take 1 [facility] 25 mg 5-04 11-14 capsule by ity of capsule 00:00: 00:00 mouth 3 [place] 00 :00 (three) Medical times Branch daily. pregabalin 2-0 2022- No [id number] 25mg Take 1 [facility] 25 mg 5-04 11-14 capsule by ity of capsule 00:00: 00:00 mouth 3 [place] 00 :00 (three) Medical times Branch daily. insulin Yes [id number] 5U inject 5 U nivers aspart 3-25 Units ity of U-100 00:00: under the [place] (NOVOLOG 00 skin 4 Medical FLEXPEN (four) Branch U-100 times INSULIN) daily with 100 unit/mL meals or (3 mL) snack. injection Insulin Yes [id number] Use as [facility] vers [place], 3-25 directed ity of Disposable, 00:00: to [place] (BD INSULIN 00 administer Me dical PEN NEEDLE 5x daily Branc h UF) 31 gauge x 5/16" Ndle insulin Yes [id number] 5U inject 5 U nivers aspart 3-25 Units ity of U-100 00:00: under the [place] (NOVOLOG 00 skin 4 Medical FLEXPEN (four) Branch U-100 times INSULIN) daily with 100 unit/mL meals or (3 mL) snack. injection Insulin Yes [id number] Use as [facility] vers [place], 3-25 directed ity of Disposable, 00:00: to [place] (BD INSULIN 00 administer Me dical PEN NEEDLE 5x daily Branc h UF) 31 gauge x 5/16" Ndle insulin Yes [id number] 5U inject 5 U nivers aspart 3-25 Units ity of U-100 00:00: under the [place] (NOVOLOG 00 skin 4 Medical FLEXPEN (four) Branch U-100 times INSULIN) daily with 100 unit/mL meals or (3 mL) snack. injection Insulin Yes [id number] Use as [facility] vers [place], 3-25 directed ity of Disposable, 00:00: to [place] (BD INSULIN 00 administer Me dical PEN NEEDLE 5x daily Branc h UF) 31 gauge x 5/16" Ndle insulin Yes [id number] 5U inject 5 U nivers aspart 3-25 Units ity of U-100 00:00: under the [place] (NOVOLOG 00 skin 4 Medical FLEXPEN (four) Branch U-100 times INSULIN) daily with 100 unit/mL meals or (3 mL) snack. injection Insulin Yes [id number] Use as [facility] vers [place], 3-25 directed ity of Disposable, 00:00: to [place] (BD INSULIN 00 administer Me dical PEN NEEDLE 5x daily Branc h UF) 31 gauge x 5/16" Ndle insulin 0 Yes [id number] 5U inject 5 U nivers aspart 3-25 Units ity of U-100 00:00: under the [place] (NOVOLOG 00 skin 4 Medical FLEXPEN (four) Branch U-100 times INSULIN) daily with 100 unit/mL meals or (3 mL) snack. injection Insulin Yes [id number] Use as [facility] vers [place], 3-25 directed ity of Disposable, 00:00: to [place] (BD INSULIN 00 administer Me dical PEN NEEDLE 5x daily Branc h UF) 31 gauge x 5/16" Ndle insulin Yes [id number] 5U inject 5 U nivers aspart 3-25 Units ity of U-100 00:00: under the [place] (NOVOLOG 00 skin 4 Medical FLEXPEN (four) Branch U-100 times INSULIN) daily with 100 unit/mL meals or (3 mL) snack. injection Insulin Yes [id number] Use as [facility] vers [place], 3-25 directed ity of Disposable, 00:00: to [place] (BD INSULIN 00 administer Me dical PEN NEEDLE 5x daily Branc h UF) 31 gauge x 5/16" Ndle insulin 0 Yes [id number] 5U inject 5 U nivers aspart 3-25 Units ity of U-100 00:00: under the [place] (NOVOLOG 00 skin 4 Medical FLEXPEN (four) Branch U-100 times INSULIN) daily with 100 unit/mL meals or (3 mL) snack. injection Insulin Yes [id number] Use as [facility] vers [place], 3-25 directed ity of Disposable, 00:00: to [place] (BD INSULIN 00 administer Me dical PEN NEEDLE 5x daily Branc h UF) 31 gauge x 5/16" Ndle insulin 0 Yes [id number] 5U inject 5 U nivers aspart 3-25 Units ity of U-100 00:00: under the [place] (NOVOLOG 00 skin 4 Medical FLEXPEN (four) Branch U-100 times INSULIN) daily with 100 unit/mL meals or (3 mL) snack. injection Insulin Yes [id number] Use as [facility] vers [place], 3-25 directed ity of Disposable, 00:00: to [place] (BD INSULIN 00 administer Me dical PEN NEEDLE 5x daily Branc h UF) 31 gauge x 5/16" Ndle insulin Yes [id number] 5U inject 5 U nivers aspart 3-25 Units ity of U-100 00:00: under the [place] (NOVOLOG 00 skin 4 Medical FLEXPEN (four) Branch U-100 times INSULIN) daily with 100 unit/mL meals or (3 mL) snack. injection Insulin Yes [id number] Use as [facility] vers [place], 3-25 directed ity of Disposable, 00:00: to [place] (BD INSULIN 00 administer Me dical PEN NEEDLE 5x daily Branc h UF) 31 gauge x 5/16" Ndle insulin Yes [id number] 5U inject 5 U nivers aspart 3-25 Units ity of U-100 00:00: under the [place] (NOVOLOG 00 skin 4 Medical FLEXPEN (four) Branch U-100 times INSULIN) daily with 100 unit/mL meals or (3 mL) snack. injection Insulin Yes [id number] Use as [facility] vers [place], 3-25 directed ity of Disposable, 00:00: to [place] (BD INSULIN 00 administer Me dical PEN NEEDLE 5x daily Branc h UF) 31 gauge x 5/16" Ndle insulin Yes [id number] 5U inject 5 U nivers aspart 3-25 Units ity of U-100 00:00: under the [place] (NOVOLOG 00 skin 4 Medical FLEXPEN (four) Branch U-100 times INSULIN) daily with 100 unit/mL meals or (3 mL) snack. injection Insulin Yes [id number] Use as [facility] vers [place], 3-25 directed ity of Disposable, 00:00: to [place] (BD INSULIN 00 administer Me dical PEN NEEDLE 5x daily Branc h UF) 31 gauge x 5/16" Ndle insulin 0 Yes [id number] 5U inject 5 U nivers aspart 3-25 Units ity of U-100 00:00: under the [place] (NOVOLOG 00 skin 4 Medical FLEXPEN (four) Branch U-100 times INSULIN) daily with 100 unit/mL meals or (3 mL) snack. injection Insulin Yes [id number] Use as [facility] vers [place], 3-25 directed ity of Disposable, 00:00: to [place] (BD INSULIN 00 administer Me dical PEN NEEDLE 5x daily Branc h UF) 31 gauge x 5/16" Ndle insulin 0 Yes [id number] 5U inject 5 U nivers aspart 3-25 Units ity of U-100 00:00: under the [place] (NOVOLOG 00 skin 4 Medical FLEXPEN (four) Branch U-100 times INSULIN) daily with 100 unit/mL meals or (3 mL) snack. injection Insulin 0 Yes [id number] Use as [facility] vers [place], 3-25 directed ity of Disposable, 00:00: to [place] (BD INSULIN 00 administer Me dical PEN NEEDLE 5x daily Branc h UF) 31 gauge x 5/16" Ndle insulin 0 Yes [id number] 5U inject 5 U nivers aspart 3-25 Units ity of U-100 00:00: under the [place] (NOVOLOG 00 skin 4 Medical FLEXPEN (four) Branch U-100 times INSULIN) daily with 100 unit/mL meals or (3 mL) snack. injection Insulin 0 Yes [id number] Use as [facility] vers [place], 3-25 directed ity of Disposable, 00:00: to [place] (BD INSULIN 00 administer Me dical PEN NEEDLE 5x daily Branc h UF) 31 gauge x 5/16" Ndle insulin 2021-0 Yes [id number] 5U inject 5 U nivers aspart 3-25 Units ity of U-100 00:00: under the [place] (NOVOLOG 00 skin 4 Medical FLEXPEN (four) Branch U-100 times INSULIN) daily with 100 unit/mL meals or (3 mL) snack. injection Insulin 0 Yes [id number] Use as [facility] vers [place], 3-25 directed ity of Disposable, 00:00: to [place] (BD INSULIN 00 administer Me dical PEN NEEDLE 5x daily Branc h UF) 31 gauge x 5/16" Ndle Insulin 2021-0 Yes [id number] Use as [facility] vers [place], 3-25 directed ity of Disposable, 00:00: to [place] (BD INSULIN 00 administer Me dical PEN NEEDLE 5x daily Branc h UF) 31 gauge x 5/16" Ndle Insulin 2021-0 Yes [id number] Use as [facility] vers [place], 3-25 directed ity of Disposable, 00:00: to [place] (BD INSULIN 00 administer Me dical PEN NEEDLE 5x daily Branc h UF) 31 gauge x 5/16" Ndle Insulin 2021-0 Yes [id number] Use as [facility] vers [place], 3-25 directed ity of Disposable, 00:00: to [place] (BD INSULIN 00 administer Me dical PEN NEEDLE 5x daily Branc h UF) 31 gauge x 5/16" Ndle Insulin 2021-0 Yes [id number] Use as [facility] vers [place], 3-25 directed ity of Disposable, 00:00: to [place] (BD INSULIN 00 administer Me dical PEN NEEDLE 5x daily Branc h UF) 31 gauge x 5/16" Ndle Insulin 2021-0 Yes [id number] Use as [facility] vers [place], 3-25 directed ity of Disposable, 00:00: to [place] (BD INSULIN 00 administer Me dical PEN NEEDLE 5x daily Branc h UF) 31 gauge x 5/16" Ndle Insulin 2021-0 Yes [id number] Use as [facility] vers [place], 3-25 directed ity of Disposable, 00:00: to [place] (BD INSULIN 00 administer Me dical PEN NEEDLE 5x daily Branc h UF) 31 gauge x 5/16" Ndle Insulin 2021-0 Yes [id number] Use as [facility] vers [place], 3-25 directed ity of Disposable, 00:00: to [place] (BD INSULIN 00 administer Me dical PEN NEEDLE 5x daily Branc h UF) 31 gauge x 5/16" Ndle Insulin 2021-0 Yes [id number] Use as [facility] vers [place], 3-25 directed ity of Disposable, 00:00: to [place] (BD INSULIN 00 administer Me dical PEN NEEDLE 5x daily Branc h UF) 31 gauge x 5/16" Ndle Insulin 2021-0 Yes [id number] Use as [facility] vers [place], 3-25 directed ity of Disposable, 00:00: to [place] (BD INSULIN 00 administer Me dical PEN NEEDLE 5x daily Branc h UF) 31 gauge x 5/16" Ndle Insulin 2021-0 Yes [id number] Use as [facility] vers [place], 3-25 directed ity of Disposable, 00:00: to [place] (BD INSULIN 00 administer Me dical PEN NEEDLE 5x daily Branc h UF) 31 gauge x 5/16" Ndle Insulin 2021-0 Yes [id number] Use as [facility] vers [place], 3-25 directed ity of Disposable, 00:00: to [place] (BD INSULIN 00 administer Me dical PEN NEEDLE 5x daily Branc h UF) 31 gauge x 5/16" Ndle Insulin Yes [id number] Use as [facility] vers [place], 3-25 directed ity of Disposable, 00:00: to [place] (BD INSULIN 00 administer Me dical PEN NEEDLE 5x daily Branc h UF) 31 gauge x 5/16" Ndle insulin 2021- No [id number] 5U inject 5 [facility] aspart 3-25 12-07 Units ity of U-100 00:00: 00:00 under the [place] (NOVOLOG 00 :00 skin 4 Medical FLEXPEN (four) Branch U-100 times INSULIN) daily with 100 unit/mL meals or (3 mL) snack. injection insulin 2021- No [id number] 22U inject 22 [facility] degludec 3-25 07-05 Units ity of (TRESIBA 00:00: 00:00 under the [place] as FLEXTOUCH 00 :00 skin at Medical U-100) 100 bedtime. Branc h unit/mL (3 mL) InPn levothyroxi Yes 100ug Take 1 Uni vers ne 100 mcg 3-15 tablet by ity of tablet 00:00: mouth [place] 00 every Medical morning. Branch levothyroxi 2021-0 Yes 100ug Take 1 Uni vers ne 100 mcg 3-15 tablet by ity of tablet 00:00: mouth [place] 00 every Medical morning. Branch levothyroxi 2021-0 Yes 100ug Take 1 Uni vers ne 100 mcg 3-15 tablet by ity of tablet 00:00: mouth [place] 00 every Medical morning. Branch levothyroxi 2021-0 Yes 100ug Take 1 Uni vers ne 100 mcg 3-15 tablet by ity of tablet 00:00: mouth [place] 00 every Medical morning. Branch levothyroxi 2021-0 Yes 100ug Take 1 Uni vers ne 100 mcg 3-15 tablet by ity of tablet 00:00: mouth [place] 00 every Medical morning. Branch levothyroxi 2021-0 Yes 100ug Take 1 Uni vers ne 100 mcg 3-15 tablet by ity of tablet 00:00: mouth [place] 00 every Medical morning. Branch levothyroxi 2021-0 Yes 100ug Take 1 Uni vers ne 100 mcg 3-15 tablet by ity of tablet 00:00: mouth [place] 00 every Medical morning. Branch levothyroxi 2021-0 Yes 100ug Take 1 Uni vers ne 100 mcg 3-15 tablet by ity of tablet 00:00: mouth [place] 00 every Medical morning. Branch levothyroxi 2021-0 Yes 100ug Take 1 Uni vers ne 100 mcg 3-15 tablet by ity of tablet 00:00: mouth [place] 00 every Medical morning. Branch levothyroxi 2-0 Yes 100ug Take 1 Uni vers ne 100 mcg 3-15 tablet by ity of tablet 00:00: mouth [place] 00 every Medical morning. Branch levothyroxi 2021-0 Yes 100ug Take 1 Uni vers ne 100 mcg 3-15 tablet by ity of tablet 00:00: mouth [place] 00 every Medical morning. Branch levothyroxi 2021-0 Yes 100ug Take 1 Uni vers ne 100 mcg 3-15 tablet by ity of tablet 00:00: mouth [place] 00 every Medical morning. Branch levothyroxi 2021-0 Yes 100ug Take 1 Uni vers ne 100 mcg 3-15 tablet by ity of tablet 00:00: mouth [place] 00 every Medical morning. Branch levothyroxi 2021-0 Yes 100ug Take 1 Uni vers ne 100 mcg 3-15 tablet by ity of tablet 00:00: mouth [place] 00 every Medical morning. Branch levothyroxi 2021-0 Yes 100ug Take 1 Uni vers ne 100 mcg 3-15 tablet by ity of tablet 00:00: mouth [place] 00 every Medical morning. Branch levothyroxi 2-0 Yes 100ug Take 1 Uni vers ne 100 mcg 3-15 tablet by ity of tablet 00:00: mouth [place] 00 every Medical morning. Branch levothyroxi 2022-0 2021- No 100ug Take 1 Un [place] ne 100 mcg 3-15 12-29 tablet by ity of tablet 00:00: 00:00 mouth [place] 00 :00 every Medical morning. Branch levothyroxi 2022-0 2- No 100ug Take 1 Un [place] ne 100 mcg 3-15 12-29 tablet by ity of tablet 00:00: 00:00 mouth [place] 00 :00 every Medical morning. Branch levothyroxi 2022-0 2021- No 100ug Take 1 Un [place] ne 100 mcg 12-2629 tablet by ity of tablet 00:00: 00:00 mouth [place] 00 :00 every [facility] No [id number] 40mg Take 1 [facility] n (LIPITOR) 12-22 tablet by it y of 40 mg 00:00: 05:59 mouth at [place] tablet 00 :00 bedtime. [facility] 2022- No [id number] 40mg Take 1 Univers n (LIPITOR) 12-22 tablet by it y of 40 mg 00:00: 05:59 mouth at [place] tablet 00 :00 bedtime. [facility] 2022- No [id number] 40mg Take 1 Univers n (LIPITOR) 12-22 tablet by it y of 40 mg 00:00: 05:59 mouth at [place] tablet 00 :00 bedtime. [facility] 2022- No [id number] 40mg Take 1 Univers n (LIPITOR) 12-22 tablet by it y of 40 mg 00:00: 05:59 mouth at [place] tablet 00 :00 bedtime. [facility] 2022- No [id number] 40mg Take 1 Univers n (LIPITOR) 12-22 tablet by it y of 40 mg 00:00: 05:59 mouth at [place] tablet 00 :00 bedtime. [facility]- No [id number] 40mg Take 1 Univers n (LIPITOR) 12-22 tablet by it y of 40 mg 00:00: 05:59 mouth at [place] tablet 00 :00 bedtime. [facility]- No [id number] 40mg Take 1 [facility] n (LIPITOR) 12-22 tablet by it y of 40 mg 00:00: 05:59 mouth at [place] tablet 00 :00 bedtime. [facility]- No [id number] 40mg Take 1 [facility] n (LIPITOR) 12-22 tablet by it y of 40 mg 00:00: 05:59 mouth at [place] tablet 00 :00 bedtime. [facility] 2022- No [id number] 40mg Take 1 Univers n (LIPITOR) 12-22- tablet by it y of 40 mg 00:00: 05:59 mouth at [place] tablet 00 :00 bedtime. [facility] No [id number] 40mg Take 1 [facility] n (LIPITOR) 12-22 tablet by it y of 40 mg 00:00: 05:59 mouth at [place] tablet 00 :00 bedtime. [facility] 2022- No [id number] 40mg Take 1 Univers n (LIPITOR) 12-22- tablet by it y of 40 mg 00:00: 05:59 mouth at [place] tablet 00 :00 bedtime. [facility]- No [id number] 40mg Take 1 Univers n (LIPITOR) 12-22 tablet by it y of 40 mg 00:00: 05:59 mouth at [place] tablet 00 :00 bedtime. [facility] 2022- No [id number] 40mg Take 1 Univers n (LIPITOR) 12-22 tablet by it y of 40 mg 00:00: 05:59 mouth at [place] tablet 00 :00 bedtime. [facility] 2022- No [id number] 40mg Take 1 [facility] n (LIPITOR) 12-22 tablet by it y of 40 mg 00:00: 05:59 mouth at [place] tablet 00 :00 bedtime. [facility]- No [id number] 40mg Take 1 [facility] n (LIPITOR) 12-22 tablet by it y of 40 mg 00:00: 05:59 mouth at [place] tablet 00 :00 bedtime. [facility]- No [id number] 40mg Take 1 [facility] n (LIPITOR) 12-22- tablet by it y of 40 mg 00:00: 05:59 mouth at [place] tablet 00 :00 bedtime. [facility]- No [id number] 40mg Take 1 [facility] n (LIPITOR) 12-22 tablet by it y of 40 mg 00:00: 00:00 mouth at [place] tablet 00 :00 bedtime. Medical Branch atorvastati 2021- No [id number] 40mg Take 1 [facility] n (LIPITOR) 3-11 12-29 tablet by it y of 40 mg 00:00: 00:00 mouth at [place] tablet 00 :00 bedtime. Medical Branch atorvastati 2021- No [id number] 40mg Take 1 [facility] n (LIPITOR) 3-11 12-29 tablet by it y of 40 mg 00:00: 00:00 mouth at [place] tablet 00 :00 bedtime. Medical Branch blood sugar Yes [id number] Use as [facility] diagnostic 3-10 directed ity o f (ACCU-CHEK 00:00: [place] SMARTVIEW 00 Medical TEST STRIP) Branch strip ferrous Yes [id number] 325mg Take 1 Un mago sulfate 325 3-10 tablet by ity of mg (65 mg 00:00: mouth [place] iron) 00 every 48 Medical tablet (forty-eig Branch ) hours. metoclopram Yes [id number] 10mg Take 10 mL [facility] gu[place]upe HCl 5 3-10 by mouth 3 ity of mg/5 mL 00:00: (three) [place] solution 00 times Medical daily with Branch meals. omeprazole Yes [id number] 40mg Take 1 [facility] 40 mg 3-10 capsule by ity of capsule 00:00: mouth [place] 00 daily. Medical Branch acetaminoph Yes [id number] 500mg Take 1 [facility] en (TYLENOL 3-10 tablet by ity of EXTRA 00:00: mouth [place] STRENGTH) 00 every 6 Medical 500 mg (six) Branch tablet hours as needed for Pain. insulin Yes [id number] Use as Uni vers syringe-nee 3-10 directed ity of dle U-100 1 00:00: [place] ml (INSULIN 00 Medical SYRINGE) 1 Branch mL 29 gauge x 1/2" Syrg ferrous Yes [id number] 325mg Take 1 Un mago sulfate 325 3-10 tablet by ity of mg (65 mg 00:00: mouth [place] iron) 00 every 48 Medical tablet (forty-eig Branch ht) hours. metoclopram Yes [id number] 10mg Take 10 mL [facility] gu[place] HCl 5 3-10 by mouth 3 ity of mg/5 mL 00:00: (three) [place] solution 00 times Medical daily with Branch meals. omeprazole 2021-0 Yes [id number] 40mg Take 1 [facility] 40 mg 3-10 capsule by ity of capsule 00:00: mouth [place] 00 daily. Medical Branch acetaminoph 2021-0 Yes [id number] 500mg Take 1 [facility] en (TYLENOL 3-10 tablet by ity of EXTRA 00:00: mouth [place] STRENGTH) 00 every 6 Medical 500 mg (six) Branch tablet hours as needed for Pain. insulin 0 Yes [id number] Use as Uni vers syringe-nee 3-10 directed ity of dle U-100 1 00:00: [place] ml (INSULIN 00 Medical SYRINGE) 1 Branch mL 29 gauge x 1/2" Syrg ferrous 2021-0 Yes [id number] 325mg Take 1 Un mago sulfate 325 3-10 tablet by ity of mg (65 mg 00:00: mouth [place] iron) 00 every 48 Medical tablet (forty-eig Branch ) hours. metoclopram 2021-0 Yes [id number] 10mg Take 10 mL [facility] [place] HCl 5 3-10 by mouth 3 ity of mg/5 mL 00:00: (three) [place] solution 00 times Medical daily with Branch meals. omeprazole 2021-0 Yes [id number] 40mg Take 1 [facility] 40 mg 3-10 capsule by ity of capsule 00:00: mouth [place] 00 daily. Medical Branch acetaminoph 2021-0 Yes [id number] 500mg Take 1 [facility] en (TYLENOL 3-10 tablet by ity of EXTRA 00:00: mouth [place] STRENGTH) 00 every 6 Medical 500 mg (six) Branch tablet hours as needed for Pain. insulin 2021-0 Yes [id number] Use as Uni vers syringe-nee 3-10 directed ity of dle U-100 1 00:00: [place] ml (INSULIN 00 Medical SYRINGE) 1 Branch mL 29 gauge x 1/2" Syrg ferrous 2021-0 Yes [id number] 325mg Take 1 Un mago sulfate 325 3-10 tablet by ity of mg (65 mg 00:00: mouth [place] iron) 00 every 48 Medical tablet (forty-eig Branch ht) hours. metoclopram 2021-0 Yes [id number] 10mg Take 10 mL [facility] gu[place] HCl 5 3-10 by mouth 3 ity of mg/5 mL 00:00: (three) [place] solution 00 times Medical daily with Branch meals. omeprazole 2021-0 Yes [id number] 40mg Take 1 [facility] 40 mg 3-10 capsule by ity of capsule 00:00: mouth [place] 00 daily. Medical Branch acetaminoph 2021-0 Yes [id number] 500mg Take 1 [facility] en (TYLENOL 3-10 tablet by ity of EXTRA 00:00: mouth [place] STRENGTH) 00 every 6 Medical 500 mg (six) Branch tablet hours as needed for Pain. insulin 0 Yes [id number] Use as Uni vers syringe-nee 3-10 directed ity of dle U-100 1 00:00: [place] ml (INSULIN 00 Medical SYRINGE) 1 Branch mL 29 gauge x 1/2" Syrg ferrous 2021-0 Yes [id number] 325mg Take 1 Un mago sulfate 325 3-10 tablet by ity of mg (65 mg 00:00: mouth [place] iron) 00 every 48 Medical tablet (forty-eig Branch ) hours. metoclopram 2021-0 Yes [id number] 10mg Take 10 mL [facility] [place] HCl 5 3-10 by mouth 3 ity of mg/5 mL 00:00: (three) [place] solution 00 times Medical daily with Branch meals. omeprazole 2021-0 Yes [id number] 40mg Take 1 [facility] 40 mg 3-10 capsule by ity of capsule 00:00: mouth [place] 00 daily. Medical Branch acetaminoph 2021-0 Yes [id number] 500mg Take 1 [facility] en (TYLENOL 3-10 tablet by ity of EXTRA 00:00: mouth [place] STRENGTH) 00 every 6 Medical 500 mg (six) Branch tablet hours as needed for Pain. insulin 2021-0 Yes [id number] Use as Uni vers syringe-nee 3-10 directed ity of dle U-100 1 00:00: [place] ml (INSULIN 00 Medical SYRINGE) 1 Branch mL 29 gauge x 1/2" Syrg ferrous 2021-0 Yes [id number] 325mg Take 1 Un mago sulfate 325 3-10 tablet by ity of mg (65 mg 00:00: mouth [place] iron) 00 every 48 Medical tablet (forty-eig Branch ht) hours. metoclopram 2021-0 Yes [id number] 10mg Take 10 mL [facility] [place] HCl 5 3-10 by mouth 3 ity of mg/5 mL 00:00: (three) [place] solution 00 times Medical daily with Branch meals. acetaminoph 2021-0 Yes [id number] 500mg Take 1 [facility] en (TYLENOL 3-10 tablet by ity of EXTRA 00:00: mouth [place] STRENGTH) 00 every 6 Medical 500 mg (six) Branch tablet hours as needed for Pain. insulin 2021-0 Yes [id number] Use as Uni vers syringe-nee 3-10 directed ity of dle U-100 1 00:00: [place] ml (INSULIN 00 Medical SYRINGE) 1 Branch mL 29 gauge x 1/2" Syrg ferrous 2021-0 Yes [id number] 325mg Take 1 Un mago sulfate 325 3-10 tablet by ity of mg (65 mg 00:00: mouth [place] iron) 00 every 48 Medical tablet (forty-eig Branch ht) hours. metoclopram 2021-0 Yes [id number] 10mg Take 10 mL [facility] [place] HCl 5 3-10 by mouth 3 ity of mg/5 mL 00:00: (three) [place] solution 00 times Medical daily with Branch meals. acetaminoph 2021-0 Yes [id number] 500mg Take 1 [facility] en (TYLENOL 3-10 tablet by ity of EXTRA 00:00: mouth [place] STRENGTH) 00 every 6 Medical 500 mg (six) Branch tablet hours as needed for Pain. insulin 2021-0 Yes [id number] Use as Uni vers syringe-nee 3-10 directed ity of dle U-100 1 00:00: [place] ml (INSULIN 00 Medical SYRINGE) 1 Branch mL 29 gauge x 1/2" Syrg ferrous 2021-0 Yes [id number] 325mg Take 1 Un mago sulfate 325 3-10 tablet by ity of mg (65 mg 00:00: mouth [place] iron) 00 every 48 Medical tablet (fort[facility]ig Branch ht) hours. metoclopram 2021-0 Yes [id number] 10mg Take 10 mL [facility] 5 3-10 by mouth 3 ity of mg/5 mL 00:00: (three) [place] solution 00 times Medical daily with Branch meals. acetaminoph 202-0 Yes [id number] 500mg Take 1 [facility] en (TYLENOL 3-10 tablet by ity of EXTRA 00:00: mouth [place] STRENGTH) 00 every 6 Medical 500 mg (six) Branch tablet hours as needed for Pain. insulin 2021-0 Yes [id number] Use as Uni vers syringe-nee 3-10 directed ity of dle U-100 1 00:00: [place] ml (INSULIN 00 Medical SYRINGE) 1 Branch mL 29 gauge x 1/2" Syrg ferrous 2021-0 Yes [id number] 325mg Take 1 Un mago sulfate 325 3-10 tablet by ity of mg (65 mg 00:00: mouth [place] iron) 00 every 48 Medical tablet (forty-eig Branch ht) hours. metoclopram 2021-0 Yes [id number] 10mg Take 10 mL [facility] HCl 5 3-10 by mouth 3 ity of mg/5 mL 00:00: (three) [place] solution 00 times Medical daily with Branch meals. acetaminoph 2021-0 Yes [id number] 500mg Take 1 [facility] en (TYLENOL 3-10 tablet by ity of EXTRA 00:00: mouth [place] STRENGTH) 00 every 6 Medical 500 mg (six) Branch tablet hours as needed for Pain. insulin 2021-0 Yes [id number] Use as Uni vers syringe-nee 3-10 directed ity of dle U-100 1 00:00: [place] ml (INSULIN 00 Medical SYRINGE) 1 Branch mL 29 gauge x 1/2" Syrg ferrous 2021-0 Yes [id number] 325mg Take 1 Un mago sulfate 325 3-10 tablet by ity of mg (65 mg 00:00: mouth [place] iron) 00 every 48 Medical tablet (forty-eig Branch ht) hours. metoclopram 2021-0 Yes [id number] 10mg Take 10 mL [facility] HCl 5 3-10 by mouth 3 ity of mg/5 mL 00:00: (three) [place] solution 00 times Medical daily with Branch meals. acetaminoph 2021-0 Yes [id number] 500mg Take 1 [facility] en (TYLENOL 3-10 tablet by ity of EXTRA 00:00: mouth [place] STRENGTH) 00 every 6 Medical 500 mg (six) Branch tablet hours as needed for Pain. insulin 2021-0 Yes [id number] Use as Uni vers syringe-nee 3-10 directed ity of dle U-100 1 00:00: [place] ml (INSULIN 00 Medical SYRINGE) 1 Branch mL 29 gauge x 1/2" Syrg ferrous 2021-0 Yes [id number] 325mg Take 1 Un mago sulfate 325 3-10 tablet by ity of mg (65 mg 00:00: mouth [place] iron) 00 every 48 Medical tablet ([facility]) hours. metoclopram 2-0 Yes [id number] 10mg Take 10 mL [facility] HCl 5 3-10 by mouth 3 ity of mg/5 mL 00:00: (three) [place] solution 00 times Medical daily with Branch meals. acetaminoph 2021-0 Yes [id number] 500mg Take 1 [facility] en (TYLENOL 3-10 tablet by ity of EXTRA 00:00: mouth [place] STRENGTH) 00 every 6 Medical 500 mg (six) Branch tablet hours as needed for Pain. insulin 2021-0 Yes [id number] Use as Uni vers syringe-nee 3-10 directed ity of dle U-100 1 00:00: [place] ml (INSULIN 00 Medical SYRINGE) 1 Branch mL 29 gauge x 1/2" Syrg ferrous 2021-0 Yes [id number] 325mg Take 1 Un mago sulfate 325 3-10 tablet by ity of mg (65 mg 00:00: mouth [place] iron) 00 every 48 Medical tablet ([facility]) hours. metoclopram 2021-0 Yes [id number] 10mg Take 10 mL [facility] HCl 5 3-10 by mouth 3 ity of mg/5 mL 00:00: (three) [place] solution 00 times Medical daily with Branch meals. acetaminoph 2021-0 Yes [id number] 500mg Take 1 [facility] en (TYLENOL 3-10 tablet by ity of EXTRA 00:00: mouth [place] STRENGTH) 00 every 6 Medical 500 mg (six) Branch tablet hours as needed for Pain. insulin 2021-0 Yes [id number] Use as Uni vers syringe-nee 3-10 directed ity of dle U-100 1 00:00: [place] ml (INSULIN 00 Medical SYRINGE) 1 Branch mL 29 gauge x 1/2" Syrg ferrous 2021-0 Yes [id number] 325mg Take 1 Un mago sulfate 325 3-10 tablet by ity of mg (65 mg 00:00: mouth [place] iron) 00 every 48 Medical tablet ([facility]) hours. metoclopram 2-0 Yes [id number] 10mg Take 10 mL [facility] HCl 5 3-10 by mouth 3 ity of mg/5 mL 00:00: (three) [place] solution 00 times Medical daily with Branch meals. acetaminoph 2021-0 Yes [id number] 500mg Take 1 [facility] en (TYLENOL 3-10 tablet by ity of EXTRA 00:00: mouth [place] STRENGTH) 00 every 6 Medical 500 mg (six) Branch tablet hours as needed for Pain. insulin 2021-0 Yes [id number] Use as Uni vers syringe-nee 3-10 directed ity of dle U-100 1 00:00: [place] ml (INSULIN 00 Medical SYRINGE) 1 Branch mL 29 gauge x 1/2" Syrg ferrous 2021-0 Yes [id number] 325mg Take 1 Un mago sulfate 325 3-10 tablet by ity of mg (65 mg 00:00: mouth [place] iron) 00 every 48 Medical tablet (forty-eig Branch ht) hours. metoclopram 2021-0 Yes [id number] 10mg Take 10 mL [facility] HCl 5 3-10 by mouth 3 ity of mg/5 mL 00:00: (three) [place] solution 00 times Medical daily with Branch meals. acetaminoph 2021-0 Yes [id number] 500mg Take 1 [facility] en (TYLENOL 3-10 tablet by ity of EXTRA 00:00: mouth [place] STRENGTH) 00 every 6 Medical 500 mg (six) Branch tablet hours as needed for Pain. insulin 2021-0 Yes [id number] Use as Uni vers syringe-nee 3-10 directed ity of dle U-100 1 00:00: [place] ml (INSULIN 00 Medical SYRINGE) 1 Branch mL 29 gauge x 1/2" Syrg ferrous 2021-0 Yes [id number] 325mg Take 1 Un mago sulfate 325 3-10 tablet by ity of mg (65 mg 00:00: mouth [place] iron) 00 every 48 Medical tablet (forty-eig Branch ht) hours. metoclopram 2022-0 Yes [id number] 10mg Take 10 mL [facility] HCl 5 3-10 by mouth 3 ity of mg/5 mL 00:00: (three) [place] solution 00 times Medical daily with Branch meals. acetaminoph 202-0 Yes [id number] 500mg Take 1 [facility] en (TYLENOL 3-10 tablet by ity of EXTRA 00:00: mouth [place] STRENGTH) 00 every 6 Medical 500 mg (six) Branch tablet hours as needed for Pain. insulin 2021-0 Yes [id number] Use as Uni vers syringe-nee 3-10 directed ity of dle U-100 1 00:00: [place] ml (INSULIN 00 Medical SYRINGE) 1 Branch mL 29 gauge x 1/2" Syrg ferrous 2021-0 Yes [id number] 325mg Take 1 Un mago sulfate 325 3-10 tablet by ity of mg (65 mg 00:00: mouth [place] iron) 00 every 48 Medical tablet (forty-eig Branch ht) hours. metoclopram 2021-0 Yes [id number] 10mg Take 10 mL [facility] HCl 5 3-10 by mouth 3 ity of mg/5 mL 00:00: (three) [place] solution 00 times Medical daily with Branch meals. acetaminoph 2021-0 Yes [id number] 500mg Take 1 [facility] en (TYLENOL 3-10 tablet by ity of EXTRA 00:00: mouth [place] STRENGTH) 00 every 6 Medical 500 mg (six) Branch tablet hours as needed for Pain. insulin 0 Yes [id number] Use as Uni vers syringe-nee 3-10 directed ity of dle U-100 1 00:00: [place] ml (INSULIN 00 Medical SYRINGE) 1 Branch mL 29 gauge x 1/2" Syrg ferrous 2021-0 Yes [id number] 325mg Take 1 Un mago sulfate 325 3-10 tablet by ity of mg (65 mg 00:00: mouth [place] iron) 00 every 48 Medical tablet (forty-eig Branch ht) hours. metoclopram 2021-0 Yes [id number] 10mg Take 10 mL [facility] HCl 5 3-10 by mouth 3 ity of mg/5 mL 00:00: (three) [place] solution 00 times Medical daily with Branch meals. acetaminoph 2021-0 Yes [id number] 500mg Take 1 [facility] en (TYLENOL 3-10 tablet by ity of EXTRA 00:00: mouth [place] STRENGTH) 00 every 6 Medical 500 mg (six) Branch tablet hours as needed for Pain. insulin 0 Yes [id number] Use as Uni vers syringe-nee 3-10 directed ity of dle U-100 1 00:00: [place] ml (INSULIN 00 Medical SYRINGE) 1 Branch mL 29 gauge x 1/2" Syrg ferrous 2021-0 Yes [id number] 325mg Take 1 Un mago sulfate 325 3-10 tablet by ity of mg (65 mg 00:00: mouth [place] iron) 00 every 48 [facility]. metoclopram 2022-0 Yes [id number] 10mg Take 10 mL [facility] HCl 5 3-10 by mouth 3 ity of mg/5 mL 00:00: (three) [place] solution 00 times Medical daily with Branch meals. acetaminoph 2-0 Yes [id number] 500mg Take 1 [facility] en (TYLENOL 3-10 tablet by ity of EXTRA 00:00: mouth [place] STRENGTH) 00 every 6 Medical 500 mg (six) Branch tablet hours as needed for Pain. insulin 2021-0 Yes [id number] Use as Uni vers syringe-nee 3-10 directed ity of dle U-100 1 00:00: [place] ml (INSULIN 00 Medical SYRINGE) 1 Branch mL 29 gauge x 1/2" Syrg ferrous 2-0 Yes [id number] 325mg Take 1 Un mago sulfate 325 3-10 tablet by ity of mg (65 mg 00:00: mouth [place] iron) 00 every 48 [facility]. metoclopram 2-0 Yes [id number] 10mg Take 10 mL [facility] HCl 5 3-10 by mouth 3 ity of mg/5 mL 00:00: (three) [place] solution 00 times Medical daily with Branch meals. acetaminoph 2021-0 Yes [id number] 500mg Take 1 [facility] en (TYLENOL 3-10 tablet by ity of EXTRA 00:00: mouth [place] STRENGTH) 00 every 6 Medical 500 mg (six) Branch tablet hours as needed for Pain. insulin 2021-0 Yes [id number] Use as Uni vers syringe-nee 3-10 directed ity of dle U-100 1 00:00: [place] ml (INSULIN 00 Medical SYRINGE) 1 Branch mL 29 gauge x 1/2" Syrg ferrous 2-0 Yes [id number] 325mg Take 1 Un mago sulfate 325 3-10 tablet by ity of mg (65 mg 00:00: mouth [place] iron) 00 every 48 [facility]. metoclopram 2022-0 Yes [id number] 10mg Take 10 mL [facility] HCl 5 3-10 by mouth 3 ity of mg/5 mL 00:00: (three) [place] solution 00 times Medical daily with Branch meals. acetaminoph 2022-0 Yes [id number] 500mg Take 1 [facility] en (TYLENOL 3-10 tablet by ity of EXTRA 00:00: mouth [place] STRENGTH) 00 every 6 Medical 500 mg (six) Branch tablet hours as needed for Pain. insulin 2021-0 Yes [id number] Use as Uni vers syringe-nee 3-10 directed ity of dle U-100 1 00:00: [place] ml (INSULIN 00 Medical SYRINGE) 1 Branch mL 29 gauge x 1/2" Syrg ferrous 2021-0 Yes [id number] 325mg Take 1 Un mago sulfate 325 3-10 tablet by ity of mg (65 mg 00:00: mouth [place] iron) 00 every 48 Medical tablet (forty-eig Branch ht) hours. metoclopram 2021-0 Yes [id number] 10mg Take 10 mL [facility] HCl 5 3-10 by mouth 3 ity of mg/5 mL 00:00: (three) [place] solution 00 times Medical daily with Branch meals. acetaminoph 2021-0 Yes [id number] 500mg Take 1 [facility] en (TYLENOL 3-10 tablet by ity of EXTRA 00:00: mouth [place] STRENGTH) 00 every 6 Medical 500 mg (six) Branch tablet hours as needed for Pain. insulin 2021-0 Yes [id number] Use as Uni vers syringe-nee 3-10 directed ity of dle U-100 1 00:00: [place] ml (INSULIN 00 Medical SYRINGE) 1 Branch mL 29 gauge x 1/2" Syrg ferrous 2021-0 Yes [id number] 325mg Take 1 Un mago sulfate 325 3-10 tablet by ity of mg (65 mg 00:00: mouth [place] iron) 00 every 48 Medical tablet (forty-eig Branch ht) hours. metoclopram 2021-0 Yes [id number] 10mg Take 10 mL [facility] HCl 5 3-10 by mouth 3 ity of mg/5 mL 00:00: (three) [place] solution 00 times Medical daily with Branch meals. acetaminoph 2021-0 Yes [id number] 500mg Take 1 [facility] en (TYLENOL 3-10 tablet by ity of EXTRA 00:00: mouth [place] STRENGTH) 00 every 6 Medical 500 mg (six) Branch tablet hours as needed for Pain. insulin 2021-0 Yes [id number] Use as Uni vers syringe-nee 3-10 directed ity of dle U-100 1 00:00: [place] ml (INSULIN 00 Medical SYRINGE) 1 Branch mL 29 gauge x 1/2" Syrg ferrous 2021-0 Yes [id number] 325mg Take 1 Un mago sulfate 325 3-10 tablet by ity of mg (65 mg 00:00: mouth [place] iron) 00 every 48 Medical tablet (forty-eig Branch ) hours. acetaminoph 2021-0 Yes [id number] 500mg Take 1 Univers en (TYLENOL 3-10 tablet by ity of EXTRA 00:00: mouth [place] STRENGTH) 00 every 6 Medical 500 mg (six) Branch tablet hours as needed for Pain. insulin 2021-0 Yes [id number] Use as Uni vers syringe-nee 3-10 directed ity of dle U-100 1 00:00: [place] ml (INSULIN 00 Medical SYRINGE) 1 Branch mL 29 gauge x 1/2" Syrg ferrous 2021-0 Yes [id number] 325mg Take 1 Un mago sulfate 325 3-10 tablet by ity of mg (65 mg 00:00: mouth [place] iron) 00 every 48 Medical tablet (forty-ei Branch ht) hours. acetaminoph 2021-0 Yes [id number] 500mg Take 1 Univers en (TYLENOL 3-10 tablet by ity of EXTRA 00:00: mouth [place] STRENGTH) 00 every 6 Medical 500 mg (six) Branch tablet hours as needed for Pain. insulin 2021-0 Yes [id number] Use as Uni vers syringe-nee 3-10 directed ity of dle U-100 1 00:00: [place] ml (INSULIN 00 Medical SYRINGE) 1 Branch mL 29 gauge x 1/2" Syrg ferrous 2021-0 Yes [id number] 325mg Take 1 Un mago sulfate 325 3-10 tablet by ity of mg (65 mg 00:00: mouth [place] iron) 00 every 48 Medical tablet (forty-eig Branch ht) hours. acetaminoph 2021-0 Yes [id number] 500mg Take 1 Univers en (TYLENOL 3-10 tablet by ity of EXTRA 00:00: mouth [place] STRENGTH) 00 every 6 Medical 500 mg (six) Branch tablet hours as needed for Pain. insulin 2021-0 Yes [id number] Use as Uni vers syringe-nee 3-10 directed ity of dle U-100 1 00:00: [place] ml (INSULIN 00 Medical SYRINGE) 1 Branch mL 29 gauge x 1/2" Syrg ferrous 2021-0 Yes [id number] 325mg Take 1 Un mago sulfate 325 3-10 tablet by ity of mg (65 mg 00:00: mouth [place] iron) 00 every 48 Medical tablet (forty-eig Branch ht) hours. acetaminoph 2021-0 Yes [id number] 500mg Take 1 Univers en (TYLENOL 3-10 tablet by ity of EXTRA 00:00: mouth [place] STRENGTH) 00 every 6 Medical 500 mg (six) Branch tablet hours as needed for Pain. insulin 0 Yes [id number] Use as Uni vers syringe-nee 3-10 directed ity of dle U-100 1 00:00: [place] ml (INSULIN 00 Medical SYRINGE) 1 Branch mL 29 gauge x 1/2" Syrg ferrous 2021-0 Yes [id number] 325mg Take 1 Un mago sulfate 325 3-10 tablet by ity of mg (65 mg 00:00: mouth [place] iron) 00 every 48 Medical tablet (forty-eig Branch ht) hours. acetaminoph 0 Yes [id number] 500mg Take 1 [facility] en (TYLENOL 3-10 tablet by ity of EXTRA 00:00: mouth [place] STRENGTH) 00 every 6 Medical 500 mg (six) Branch tablet hours as needed for Pain. insulin Yes [id number] Use as Uni vers syringe-nee 3-10 directed ity of dle U-100 1 00:00: [place] ml (INSULIN 00 Medical SYRINGE) 1 Branch mL 29 gauge x 1/2" Syrg metoclopram 0 3- No [id number] 10mg Take 10 mL [facility] HCl 5 3-10 -24 by mouth 3 ity of mg/5 mL 00:00: 00:00 (three) [place] solution 00 :00 times Medical daily with Branch meals. omeprazole 2021-0 2021- No [id number] 40mg Take 1 Univers 40 mg 3-10 - capsule by ity of capsule 00:00: 00:00 mouth [place] 00 :00 daily. Medical Branch blood sugar 2021-0 2022- No [id number] Use as Univers diagnostic 3-10 08-10 directed ity of (ACCU-CHEK 00:00: 00:00 [place] SMARTVIEW 00 :00 Medical TEST STRIP) Branch strip Immunizations Ordered Filled Immunization Date Status Comments [facility] e Immunization Name Name SARS-COV-2 COVID-19 2022-10-11 Completed Unive rsity of NINA-SUCROSE 00:00:00 [place] Medica l VACCINE 12 YRS+, Branch BIVALENT 0.3ML, IM, (PFIZER [employer] BOOSTER) Influenza Virus 2022-10-11 Completed Universit y of Vaccine Quad IM, 00:00:00 [place] Me dical Preserv and ABX Branch Free 6 MO-64 YRS SARS-COV-2 COVID-19 2022-10-11 Completed Unive rsity of NINA-SUCROSE 00:00:00 [place] Medica l VACCINE 12 YRS+, Branch BIVALENT 0.3ML, IM, (PFIZER [employer] TOP BOOSTER) Influenza Virus 2022-10-11 Completed Universit y of Vaccine Quad IM, 00:00:00 [place] Me dical Preserv and ABX Branch Free 6 MO-64 YRS SARS-COV-2 COVID-19 2022-10-11 Completed Unive rsity of NINA-SUCROSE 00:00:00 [place] Medica l VACCINE 12 YRS+, Branch BIVALENT 0.3ML, IM, (PFIZER [employer] TOP BOOSTER) Influenza Virus 2022-10-11 Completed Universit y of Vaccine Quad IM, 00:00:00 [place] Me dical Preserv and ABX Branch Free 6 MO-64 YRS SARS-COV-2 COVID-19 2022-10-11 Completed Unive rsity of NINA-SUCROSE 00:00:00 [place] Medica l VACCINE 12 YRS+, Branch BIVALENT 0.3ML, IM, (PFIZER [employer] TOP BOOSTER) Influenza Virus 2022-10-11 Completed Universit y of Vaccine Quad IM, 00:00:00 [place] Me dical Preserv and ABX Branch Free 6 MO-64 YRS SARS-COV-2 COVID-19 2022-10-11 Completed Unive rsity of NINA-SUCROSE 00:00:00 [place] Medica l VACCINE 12 YRS+, Branch BIVALENT 0.3ML, IM, (PFIZER [employer] TOP BOOSTER) Influenza Virus 2022-10-11 Completed Universit y of Vaccine Quad IM, 00:00:00 [place] Me dical Preserv and ABX Branch Free 6 MO-64 YRS SARS-COV-2 COVID-19 2022-10-11 Completed Unive rsity of NINA-SUCROSE 00:00:00 [place] Medica l VACCINE 12 YRS+, Branch BIVALENT 0.3ML, IM, (PFIZER [employer] TOP BOOSTER) Influenza Virus 2022-10-11 Completed Universit y of Vaccine Quad IM, 00:00:00 [place] Me dical Preserv and ABX Branch Free 6 MO-64 YRS SARS-COV-2 COVID-19 2022-10-11 Completed Unive rsity of NINA-SUCROSE 00:00:00 [place] Medica l VACCINE 12 YRS+, Branch BIVALENT 0.3ML, IM, (PFIZER [employer] TOP BOOSTER) Influenza Virus 2022-10-11 Completed Universit y of Vaccine Quad IM, 00:00:00 [place] Me dical Preserv and ABX Branch Free 6 MO-64 YRS SARS-COV-2 COVID-19 2022-10-11 Completed Unive rsity of NINA-SUCROSE 00:00:00 [place] Medica l VACCINE 12 YRS+, Branch BIVALENT 0.3ML, IM, (PFIZER [employer] TOP BOOSTER) Influenza Virus 2022-10-11 Completed Universit y of Vaccine Quad IM, 00:00:00 [place] Me dical Preserv and ABX Branch Free 6 MO-64 YRS SARS-COV-2 COVID-19 2022-10-11 Completed Unive rsity of NINA-SUCROSE 00:00:00 [place] Medica l VACCINE 12 YRS+, Branch BIVALENT 0.3ML, IM, (PFIZER [employer] TOP BOOSTER) Influenza Virus 2022-10-11 Completed Universit y of Vaccine Quad IM, 00:00:00 [place] Me dical Preserv and ABX Branch Free 6 MO-64 YRS SARS-COV-2 COVID-19 2022-10-11 Completed Unive rsity of NINA-SUCROSE 00:00:00 [place] Medica l VACCINE 12 YRS+, Branch BIVALENT 0.3ML, IM, (PFIZER W[employer] TOP BOOSTER) Influenza Virus 2022-10-11 Completed Universit y of Vaccine Quad IM, 00:00:00 [place] Me dical Preserv and ABX Branch Free 6 MO-64 YRS SARS-COV-2 COVID-19 2022-10-11 Completed Unive rsity of NINA-SUCROSE 00:00:00 [place] Medica l VACCINE 12 YRS+, Branch BIVALENT 0.3ML, IM, (PFIZER WALSH TOP) Influenza Virus 2022-10-11 Completed Universit y of Vaccine Quad IM, 00:00:00 [facility] dical Preserv and ABX Branch Free 6 MO-64 YRS Pfizer bivalent 12+ Pfizer bivalent 12+ 2022-10-11 Completed 00:00:00 Influenza High Dose 2022-01-13 Completed Unive rsity of 00:00:00 [facility] Influenza High Dose 2022-01-13 Completed Unive rsity of 00:00:00 [facility] Influenza High Dose 2022-01-13 Completed Unive rsity of 00:00:00 [facility] Influenza High Dose 2022-01-13 Completed Unive rsity of 00:00:00 [facility] Influenza High Dose 2022-01-13 Completed Unive rsity of 00:00:00 [facility] Influenza High Dose 2022-01-13 Completed Unive rsity of 00:00:00 [facility] Influenza High Dose 2022-01-13 Completed Unive rsity of 00:00:00 [facility] Influenza High Dose 2022-01-13 Completed Unive rsity of 00:00:00 [facility] Influenza High Dose 2022-01-13 Completed Unive rsity of 00:00:00 [facility] Influenza High Dose 2022-01-13 Completed Unive rsity of 00:00:00 [facility] Influenza High Dose 2022-01-13 Completed Unive rsity of 00:00:00 [facility] Influenza High Dose 2022-01-13 Completed Unive rsity of 00:00:00 [facility] Influenza High Dose 2022-01-13 Completed Unive rsity of 00:00:00 [facility] Influenza High Dose 2022-01-13 Completed Unive rsity of 00:00:00 [facility] Influenza High Dose 2022-01-13 Completed Unive rsity of 00:00:00 [facility] Influenza High Dose 2022-01-13 Completed Unive rsity of 00:00:00 [facility] Influenza High Dose 2022-01-13 Completed Unive rsity of 00:00:00 [facility] Influenza High Dose 2022-01-13 Completed Unive rsity of 00:00:00 [facility] Influenza High Dose 2022-01-13 Completed Unive rsity of 00:00:00 [facility] Influenza High Dose 2022-01-13 Completed Unive rsity of 00:00:00 [facility] Pneumococcal 2021-10-05 Completed University o f Polysaccharide, 00:00:00 [place] Med ical PPSV23 (PNEUMOVAX) Branch Pneumococcal 2021-10-05 Completed University o f Polysaccharide, 00:00:00 [place] Med ical PPSV23 (PNEUMOVAX) Branch Pneumococcal 2021-10-05 Completed University o f Polysaccharide, 00:00:00 [place] Med ical PPSV23 (PNEUMOVAX) Branch Pneumococcal 2021-10-05 Completed University o f Polysaccharide, 00:00:00 [place] Med ical PPSV23 (PNEUMOVAX) Branch Pneumococcal 2021-10-05 Completed University o f Polysaccharide, 00:00:00 [place] Med ical PPSV23 (PNEUMOVAX) Branch Pneumococcal 2021-10-05 Completed University o f Polysaccharide, 00:00:00 [place] Med ical PPSV23 (PNEUMOVAX) Branch Pneumococcal 2021-10-05 Completed University o f Polysaccharide, 00:00:00 [place] Med ical PPSV23 (PNEUMOVAX) Branch Pneumococcal 2021-10-05 Completed University o f Polysaccharide, 00:00:00 [place] Med ical PPSV23 (PNEUMOVAX) Branch Pneumococcal 2021-10-05 Completed University o f Polysaccharide, 00:00:00 [place] Med ical PPSV23 (PNEUMOVAX) Branch Pneumococcal 2021-10-05 Completed University o f Polysaccharide, 00:00:00 [place] Med ical PPSV23 (PNEUMOVAX) Branch Pneumococcal 2021-10-05 Completed University o f Polysaccharide, 00:00:00 [place] Med ical PPSV23 (PNEUMOVAX) Branch Pneumococcal 2021-10-05 Completed University o f Polysaccharide, 00:00:00 [place] Med ical PPSV23 (PNEUMOVAX) Branch Pneumococcal 2021-10-05 Completed University o f Polysaccharide, 00:00:00 [place] Med ical PPSV23 (PNEUMOVAX) Branch Pneumococcal 2021-10-05 Completed University o f Polysaccharide, 00:00:00 [place] Med ical PPSV23 (PNEUMOVAX) Branch Pneumococcal 2021-10-05 Completed University o f Polysaccharide, 00:00:00 [place] Med ical PPSV23 (PNEUMOVAX) Branch Pneumococcal 2021-10-05 Completed University o f Polysaccharide, 00:00:00 [place] Med ical PPSV23 (PNEUMOVAX) Branch Pneumococcal 2021-10-05 Completed University o f Polysaccharide, 00:00:00 [place] Med ical PPSV23 (PNEUMOVAX) Branch Pneumococcal 2021-10-05 Completed University o f Polysaccharide, 00:00:00 [place] Med ical PPSV23 (PNEUMOVAX) Branch Pneumococcal 2021-10-05 Completed University o f Polysaccharide, 00:00:00 [place] Med ical PPSV23 (PNEUMOVAX) Branch Pneumococcal 2021-10-05 Completed University o f Polysaccharide, 00:00:00 [place] Med ical PPSV23 (PNEUMOVAX) Branch Pneumococcal 2021-10-05 Completed University o f Polysaccharide, 00:00:00 [place] Med ical PPSV23 (PNEUMOVAX) Branch Pneumococcal 2021-10-05 Completed University o f Polysaccharide, 00:00:00 [place] Med ical PPSV23 (PNEUMOVAX) Branch Pneumococcal 2021-10-05 Completed University o f Polysaccharide, 00:00:00 [place] Med ical PPSV23 (PNEUMOVAX) Branch Pneumococcal 2021-10-05 Completed University o f Polysaccharide, 00:00:00 [place] Med ical PPSV23 (PNEUMOVAX) Branch Pneumococcal 2021-10-05 Completed University o f Polysaccharide, 00:00:00 [place] Med ical PPSV23 (PNEUMOVAX) Branch Pneumococcal 2021-10-05 Completed University o f Polysaccharide, 00:00:00 [place] Med ical PPSV23 (PNEUMOVAX) Branch Pneumococcal 2021-10-05 Completed University o f Polysaccharide, 00:00:00 [place] Med ical PPSV23 (PNEUMOVAX) Branch Influenza Virus 2021-07-30 Completed Universit y of Vaccine Quad IM, 00:00:00 [place] Me dical Preserv and ABX Branch Free 6 MO-64 YRS Influenza Virus 2021-07-30 Completed Universit y of Vaccine Quad IM, 00:00:00 [place] Me dical Preserv and ABX Branch Free 6 MO-64 YRS Influenza Virus 2021-07-30 Completed Universit y of Vaccine Quad IM, 00:00:00 [place] Me dical Preserv and ABX Branch Free 6 MO-64 YRS Influenza Virus 2021-07-30 Completed Universit y of Vaccine Quad IM, 00:00:00 [place] Me dical Preserv and ABX Branch Free 6 MO-64 YRS Influenza Virus 2021-07-30 Completed Universit y of Vaccine Quad IM, 00:00:00 [place] Me dical Preserv and ABX Branch Free 6 MO-64 YRS Influenza Virus 2021-07-30 Completed Universit y of Vaccine Quad IM, 00:00:00 [place] Me dical Preserv and ABX Branch Free 6 MO-64 YRS Influenza Virus 2021-07-30 Completed Universit y of Vaccine Quad IM, 00:00:00 [place] Me dical Preserv and ABX Branch Free 6 MO-64 YRS Influenza Virus 2021-07-30 Completed Universit y of Vaccine Quad IM, 00:00:00 [place] Me dical Preserv and ABX Branch Free 6 MO-64 YRS Influenza Virus 2021-07-30 Completed Universit y of Vaccine Quad IM, 00:00:00 [place] Me dical Preserv and ABX Branch Free 6 MO-64 YRS Influenza Virus 2021-07-30 Completed Universit y of Vaccine Quad IM, 00:00:00 [place] Me dical Preserv and ABX Branch Free 6 MO-64 YRS Influenza Virus 2021-07-30 Completed Universit y of Vaccine Quad IM, 00:00:00 [place] Me dical Preserv and ABX Branch Free 6 MO-64 YRS Influenza Virus 2021-07-30 Completed [facility], 00:00:00 [place] [facility] ABX Branch Free 6 MO-64 YRS Influenza Virus 2021-07-30 Completed [facility], 00:00:00 [place] [facility] ABX [facility] Free 6 MO-64 YRS Influenza Virus 2021-07-30 Completed [facility], 00:00:00 [place] [facility] Preserv and ABX Branch Free 6 MO-64 YRS Influenza Virus 2021-07-30 Completed [facility], 00:00:00 [place] [facility] Pres[facility] ABX Branch Free 6 MO-64 YRS Influenza Virus 2021-07-30 Completed [facility], 00:00:00 [place] [facility] Preserv and ABX Branch Free 6 MO-64 YRS Influenza Virus 2021-07-30 Completed [facility], 00:00:00 [place] [facility] Preserv [facility] ABX Branch Free 6 MO-64 YRS Influenza Virus 2021-07-30 Completed [facility], 00:00:00 [place] [facility] Pres[facility] ABX Branch Free 6 MO-64 YRS Influenza Virus 2021-07-30 Completed [facility], 00:00:00 [place] [facility] Preserv and ABX Branch Free 6 MO-64 YRS Influenza Virus 2021-07-30 Completed [facility], 00:00:00 [place] [facility] Preserv and ABX Branch Free 6 MO-64 YRS Influenza Virus 2021-07-30 Completed [facility], 00:00:00 [place] [facility] Preserv and ABX Branch Free 6 MO-64 YRS Influenza Virus 2021-07-30 Completed [facility], 00:00:00 [place] [facility] Pres[facility] and ABX Branch Free 6 MO-64 YRS Influenza Virus 2021-07-30 Completed [facility], 00:00:00 [place] [facility] Preserv and ABX Branch Free 6 MO-64 YRS Influenza Virus 2021-07-30 Completed [facility], 00:00:00 [place] [facility] Preserv and ABX Branch Free 6 MO-64 YRS Influenza Virus 2021-07-30 Completed [facility], 00:00:00 [place] [facility] Preserv and ABX Branch Free 6 MO-64 YRS Influenza Virus 2021-07-30 Completed [facility], 00:00:00 [place] [facility] Preserv and ABX Branch Free 6 MO-64 YRS Influenza Virus 2021-07-30 Completed [facility], 00:00:00 [place] [facility] Preserv and ABX Branch Free 6 MO-64 YRS Moderna COVID-19 Moderna COVID-19 2021-05-31 Completed Vaccine Vaccine 00:00:00 SARS-COV-2 COVID-19 2021-05-15 Completed Unive rsity of MODERNA VACCINE 00:00:00 [facility] ical Branch SARS-COV-2 COVID-19 2021-05-15 Completed Unive rsity of MODERNA VACCINE 00:00:00 [place] [facility] SARS-COV-2 COVID-19 2021-05-15 Completed Unive rsity of MODERNA 12+ YRS 00:00:00 [facility] ical VACCINE Branch SARS-COV-2 COVID-19 2021-05-15 Completed Unive rsity of MODERNA 12+ YRS 00:00:00 [place] [facility] VACCINE [facility] SARS-COV-2 COVID-19 2021-05-15 Completed Unive rsity of MODERNA 12+ YRS 00:00:00 [place] [facility] VACCINE [facility] SARS-COV-2 COVID-19 2021-05-15 Completed Unive rsity of MODERNA 12+ YRS 00:00:00 [place] [facility] VACCINE [facility] SARS-COV-2 COVID-19 2021-05-15 Completed Unive rsity of MODERNA 12+ YRS 00:00:00 [place] [facility] VACCINE [facility] SARS-COV-2 COVID-19 2021-05-15 Completed Unive rsity of MODERNA 12+ YRS 00:00:00 [place] [facility] VACCINE [facility] SARS-COV-2 COVID-19 2021-05-15 Completed Unive rsity of MODERNA 12+ YRS 00:00:00 [place] [facility] VACCINE [facility] SARS-COV-2 COVID-19 2021-05-15 Completed Unive rsity of MODERNA 12+ YRS 00:00:00 [place] [facility] VACCINE [facility] SARS-COV-2 COVID-19 2021-05-15 Completed Unive rsity of MODERNA 12+ YRS 00:00:00 [place] [facility] VACCINE [facility] SARS-COV-2 COVID-19 2021-05-15 Completed Unive rsity of MODERNA 12+ YRS 00:00:00 [place] [facility] VACCINE [facility] SARS-COV-2 COVID-19 2021-05-15 Completed Unive rsity of MODERNA 12+ YRS 00:00:00 [place] [facility] VACCINE [facility] SARS-COV-2 COVID-19 2021-05-15 Completed Unive rsity of MODERNA 12+ YRS 00:00:00 [place] [facility] VACCINE [facility] SARS-COV-2 COVID-19 2021-05-15 Completed Unive rsity of MODERNA 12+ YRS 00:00:00 [place] [facility] VACCINE [facility] SARS-COV-2 COVID-19 2021-05-15 Completed Unive rsity of MODERNA 12+ YRS 00:00:00 [place] [facility] VACCINE [facility] SARS-COV-2 COVID-19 2021-05-15 Completed Unive rsity of MODERNA 12+ YRS 00:00:00 [place] [facility] VACCINE Branch SARS-COV-2 COVID-19 2021-05-15 Completed Unive rsity of MODERNA 12+ YRS 00:00:00 [place] [facility] VACCINE [facility] SARS-COV-2 COVID-19 2021-05-15 Completed Unive rsity of MODERNA 12+ YRS 00:00:00 [place] [facility] VACCINE Branch SARS-COV-2 COVID-19 2021-05-15 Completed Unive rsity of MODERNA 12+ YRS 00:00:00 [place] [facility] VACCINE Branch SARS-COV-2 COVID-19 2021-05-15 Completed Unive rsity of MODERNA 12+ YRS 00:00:00 [place] [facility] VACCINE Branch SARS-COV-2 COVID-19 2021-05-15 Completed Unive rsity of MODERNA 12+ YRS 00:00:00 [place] [facility] VACCINE Branch SARS-COV-2 COVID-19 2021-05-15 Completed Unive rsity of MODERNA 12+ YRS 00:00:00 [place] [facility] VACCINE Branch SARS-COV-2 COVID-19 2021-05-15 Completed Unive rsity of MODERNA 12+ YRS 00:00:00 [place] [facility] VACCINE Branch SARS-COV-2 COVID-19 2021-05-15 Completed Unive rsity of MODERNA 12+ YRS 00:00:00 [place] [facility] VACCINE Branch SARS-COV-2 COVID-19 2021-05-15 Completed Unive rsity of MODERNA 12+ YRS 00:00:00 [place] [facility] VACCINE [facility] SARS-COV-2 COVID-19 2021-05-15 Completed Unive rsity of MODERNA 12+ YRS 00:00:00 [place] [facility] VACCINE [facility] Moderna COVID-19 Moderna COVID-19 2021-04-23 Completed Vaccine Vaccine 00:00:00 SARS-COV-2 COVID-19 2021-04-13 Completed [facility]ive rsity of MODERNA VACCINE 00:00:00 [place] [facility] SARS-COV-2 COVID-19 2021-04-13 Completed [facility]ive rsity of MODERNA VACCINE 00:00:00 [place] [facility] SARS-COV-2 COVID-19 2021-04-13 Completed Unive rsity of MODERNA 12+ YRS 00:00:00 [place] [facility] VACCINE [facility] SARS-COV-2 COVID-19 2021-04-13 Completed Unive rsity of MODERNA 12+ YRS 00:00:00 [place] [facility] VACCINE [facility] SARS-COV-2 COVID-19 2021-04-13 Completed Unive rsity of MODERNA 12+ YRS 00:00:00 [place] [facility] VACCINE [facility] SARS-COV-2 COVID-19 2021-04-13 Completed Unive rsity of MODERNA 12+ YRS 00:00:00 [place] [facility] VACCINE [facility] SARS-COV-2 COVID-19 2021-04-13 Completed Unive rsity of MODERNA 12+ YRS 00:00:00 [place] [facility] VACCINE [facility] SARS-COV-2 COVID-19 2021-04-13 Completed Unive rsity of MODERNA 12+ YRS 00:00:00 [place] [facility] VACCINE [facility] SARS-COV-2 COVID-19 2021-04-13 Completed Unive rsity of MODERNA 12+ YRS 00:00:00 [place] [facility] VACCINE [facility] SARS-COV-2 COVID-19 2021-04-13 Completed Unive rsity of MODERNA 12+ YRS 00:00:00 [place] [facility] VACCINE [facility] SARS-COV-2 COVID-19 2021-04-13 Completed Unive rsity of MODERNA 12+ YRS 00:00:00 [place] [facility] VACCINE [facility] SARS-COV-2 COVID-19 2021-04-13 Completed Unive rsity of MODERNA 12+ YRS 00:00:00 [place] [facility] VACCINE [facility] SARS-COV-2 COVID-19 2021-04-13 Completed Unive rsity of MODERNA 12+ YRS 00:00:00 [place] [facility] VACCINE Branch SARS-COV-2 COVID-19 2021-04-13 Completed Unive rsity of MODERNA 12+ YRS 00:00:00 [place] [facility] VACCINE Branch SARS-COV-2 COVID-19 2021-04-13 Completed Unive rsity of MODERNA 12+ YRS 00:00:00 [place] [facility] VACCINE Branch SARS-COV-2 COVID-19 2021-04-13 Completed Unive rsity of MODERNA 12+ YRS 00:00:00 [place] [facility] VACCINE Branch SARS-COV-2 COVID-19 2021-04-13 Completed Unive rsity of MODERNA 12+ YRS 00:00:00 [place] [facility] VACCINE Branch SARS-COV-2 COVID-19 2021-04-13 Completed Unive rsity of MODERNA 12+ YRS 00:00:00 [place] [facility] VACCINE Branch SARS-COV-2 COVID-19 2021-04-13 Completed Unive rsity of MODERNA 12+ YRS 00:00:00 [place] [facility] ical VACCINE Branch SARS-COV-2 COVID-19 2021-04-13 Completed Unive rsity of MODERNA 12+ YRS 00:00:00 [place] [facility] VACCINE Branch SARS-COV-2 COVID-19 2021-04-13 Completed Unive rsity of MODERNA 12+ YRS 00:00:00 [place] [facility] ical VACCINE Branch SARS-COV-2 COVID-19 2021-04-13 Completed Unive rsity of MODERNA 12+ YRS 00:00:00 [place] [facility] ical VACCINE Branch SARS-COV-2 COVID-19 2021-04-13 Completed Unive rsity of MODERNA 12+ YRS 00:00:00 [place] [facility] VACCINE Branch SARS-COV-2 COVID-19 2021-04-13 Completed Unive rsity of MODERNA 12+ YRS 00:00:00 [place] [facility] ical VACCINE Branch SARS-COV-2 COVID-19 2021-04-13 Completed Unive rsity of MODERNA 12+ YRS 00:00:00 [place] [facility] ical VACCINE Branch SARS-COV-2 COVID-19 2021-04-13 Completed Unive rsity of MODERNA 12+ YRS 00:00:00 [place] [facility] ical VACCINE Branch SARS-COV-2 COVID-19 2021-04-13 Completed Unive rsity of MODERNA 12+ YRS 00:00:00 [facility] VACCINE Branch Influenza Virus 2014-09-22 Completed [facility] 3+ 00:00:00 [facility] Influenza Virus 2014-09-22 Completed [facility] 3+ 00:00:00 [facility] Influenza Virus 2014-09-22 Completed [facility] 3+ 00:00:00 [facility] Influenza Virus 2014-09-22 Completed [facility] 3+ 00:00:00 [facility] Influenza Virus 2014-09-22 Completed [facility] 3+ 00:00:00 [facility] Influenza Virus 2014-09-22 Completed [facility] 3+ 00:00:00 [facility] Influenza Virus 2014-09-22 Completed [facility] 3+ 00:00:00 [facility] Influenza Virus 2014-09-22 Completed [facility] 3+ 00:00:00 [facility] Influenza Virus 2014-09-22 Completed [facility] 3+ 00:00:00 [facility] Influenza Virus 2014-09-22 Completed [facility] 3+ 00:00:00 [facility] Influenza Virus 2014-09-22 Completed [facility] 3+ 00:00:00 [facility] Influenza Virus 2014-09-22 Completed [facility] 3+ 00:00:00 [facility] Influenza Virus 2014-09-22 Completed [facility] 3+ 00:00:00 [facility] Influenza Virus 2014-09-22 Completed [facility] 3+ 00:00:00 [facility] Influenza Virus 2014-09-22 Completed [facility] 3+ 00:00:00 [facility] Influenza Virus 2014-09-22 Completed [facility] 3+ 00:00:00 [facility] Influenza Virus 2014-09-22 Completed [facility] 3+ 00:00:00 [facility] Influenza Virus 2014-09-22 Completed [facility] 3+ 00:00:00 [facility] Influenza Virus 2014-09-22 Completed [facility] 3+ 00:00:00 [facility] Influenza Virus 2014-09-22 Completed [facility] 3+ 00:00:00 [facility] Influenza Virus 2014-09-22 Completed [facility] 3+ 00:00:00 [facility] Influenza Virus 2014-09-22 Completed [facility] 3+ 00:00:00 [facility] Influenza Virus 2014-09-22 Completed [facility] 3+ 00:00:00 [facility] Influenza Virus 2014-09-22 Completed [facility] 3+ 00:00:00 [facility] Influenza Virus 2014-09-22 Completed [facility] 3+ 00:00:00 [facility] Influenza Virus 2014-09-22 Completed [facility] 3+ 00:00:00 [facility] Influenza Virus 2014-09-22 Completed [facility] 3+ 00:00:00 [facility] HPV 2014-09-16 Completed University of 00:00:00 [facility] HPV 2014-09-16 Completed University of 00:00:00 [facility] HPV 2014-09-16 Completed University of 00:00:00 [facility] HPV 2014-09-16 Completed University of 00:00:00 [facility] HPV 2014-09-16 Completed University of 00:00:00 [facility] HPV 2014-09-16 Completed University of 00:00:00 [facility] HPV 2014-09-16 Completed University of 00:00:00 [facility] HPV 2014-09-16 Completed University of 00:00:00 [facility] HPV 2014-09-16 Completed University of 00:00:00 [facility] HPV 2014-09-16 Completed University of 00:00:00 [facility] HPV 2014-09-16 Completed University of 00:00:00 [facility] HPV 2014-09-16 Completed University of 00:00:00 [facility] HPV 2014-09-16 Completed University of 00:00:00 [facility] HPV 2014-09-16 Completed University of 00:00:00 [facility] HPV 2014-09-16 Completed University of 00:00:00 [facility] HPV 2014-09-16 Completed University of 00:00:00 [facility] HPV 2014-09-16 Completed University of 00:00:00 [facility] HPV 2014-09-16 Completed University of 00:00:00 [facility] HPV 2014-09-16 Completed University of 00:00:00 [facility] HPV 2014-09-16 Completed University of 00:00:00 [facility] HPV 2014-09-16 Completed University of 00:00:00 [facility] HPV 2014-09-16 Completed University of 00:00:00 [facility] HPV 2014-09-16 Completed University of 00:00:00 [facility] HPV 2014-09-16 Completed University of 00:00:00 [place] [facility] HPV 2014-09-16 Completed University of 00:00:00 [place] [facility] HPV 2014-09-16 Completed University of 00:00:00 [place] [facility] HPV 2014-09-16 Completed University of 00:00:00 [place] [facility] HPV 2014-06-26 Completed University of 00:00:00 [place] [facility] HPV 2014-06-26 Completed University of 00:00:00 [place] [facility] HPV 2014-06-26 Completed University of 00:00:00 [place] [facility] HPV 2014-06-26 Completed University of 00:00:00 [place] [facility] HPV 2014-06-26 Completed University of 00:00:00 [place] [facility] HPV 2014-06-26 Completed University of 00:00:00 [place] [facility] HPV 2014-06-26 Completed University of 00:00:00 [place] [facility] HPV 2014-06-26 Completed University of 00:00:00 [place] [facility] HPV 2014-06-26 Completed University of 00:00:00 [place] [facility] HPV 2014-06-26 Completed University of 00:00:00 [place] [facility] HPV 2014-06-26 Completed University of 00:00:00 [place] [facility] HPV 2014-06-26 Completed University of 00:00:00 [place] [facility] HPV 2014-06-26 Completed University of 00:00:00 [place] [facility] HPV 2014-06-26 Completed University of 00:00:00 [place] [facility] HPV 2014-06-26 Completed University of 00:00:00 [place] [facility] HPV 2014-06-26 Completed University of 00:00:00 [place] [facility] HPV 2014-06-26 Completed University of 00:00:00 [place] [facility] HPV 2014-06-26 Completed University of 00:00:00 [place] [facility] HPV 2014-06-26 Completed University of 00:00:00 [place] [facility] HPV 2014-06-26 Completed University of 00:00:00 [place] [facility] HPV 2014-06-26 Completed University of 00:00:00 [place] [facility] HPV 2014-06-26 Completed University of 00:00:00 [place] [facility] HPV 2014-06-26 Completed University of 00:00:00 [place] [facility] HPV 2014-06-26 Completed University of 00:00:00 [place] [facility] HPV 2014-06-26 Completed University of 00:00:00 [place] [facility] HPV 2014-06-26 Completed University of 00:00:00 [place] [facility] HPV 2014-06-26 Completed University of 00:00:00 [facility] TDAP 2013-10-11 Completed University of 00:00:00 [facility] TDAP 2013-10-11 Completed University of 00:00:00 [facility] TDAP 2013-10-11 Completed University of 00:00:00 [facility] TDAP 2013-10-11 Completed University of 00:00:00 [facility] TDAP 2013-10-11 Completed University of 00:00:00 [facility] TDAP 2013-10-11 Completed University of 00:00:00 [facility] TDAP 2013-10-11 Completed University of 00:00:00 [facility] TDAP 2013-10-11 Completed University of 00:00:00 [facility] TDAP 2013-10-11 Completed University of 00:00:00 [facility] TDAP 2013-10-11 Completed University of 00:00:00 [facility] TDAP 2013-10-11 Completed University of 00:00:00 [facility] TDAP 2013-10-11 Completed University of 00:00:00 [facility] TDAP 2013-10-11 Completed University of 00:00:00 [facility] TDAP 2013-10-11 Completed University of 00:00:00 [facility] TDAP 2013-10-11 Completed University of 00:00:00 [facility] TDAP 2013-10-11 Completed University of 00:00:00 [facility] TDAP 2013-10-11 Completed University of 00:00:00 [facility] TDAP 2013-10-11 Completed University of 00:00:00 [facility] TDAP 2013-10-11 Completed University of 00:00:00 [facility] TDAP 2013-10-11 Completed University of 00:00:00 [facility] TDAP 2013-10-11 Completed University of 00:00:00 [facility] TDAP 2013-10-11 Completed University of 00:00:00 [place] [facility] TDAP 2013-10-11 Completed University of 00:00:00 [place] [facility] TDAP 2013-10-11 Completed University of 00:00:00 [facility] TDAP 2013-10-11 Completed University of 00:00:00 [facility] TDAP 2013-10-11 Completed University of 00:00:00 [place] [facility] TDAP 2013-10-11 Completed University of 00:00:00 [facility] Vital Signs Vital Name Observation Time Observation Value Comments Source Body temperature 2023-03-05 16:53:00 36.44 Shabana Univ ersity of [facility] Systolic blood 2023-03-05 16:52:00 137 mm[Hg] Univer sity of pressure [facility] [place] [facility] Diastolic blood 2023-03-05 16:52:00 93 mm[Hg] Unive rsity of pressure [facility] Heart rate 2023-03-05 16:52:00 78 /min Universi ty of [facility] Respiratory rate 2023-03-05 16:52:00 18 /min Univ ersity of [facility] Body weight 2023-03-05 16:52:00 61.236 kg Universi ty of [facility] BMI 2023-03-05 16:52:00 23.91 kg/m2 Universi ty of [facility] Body temperature 2023-01-10 22:57:00 36.33 Shabana Univ ersity of [facility] Systolic blood 2023-01-10 22:01:22 126 mm[Hg] Univer sity of pressure [facility] Diastolic blood 2023-01-10 22:01:22 85 mm[Hg] Unive rsity of pressure [facility] Heart rate 2023-01-10 22:01:22 106 /min Universi ty of [facility] Respiratory rate 2023-01-10 22:01:22 12 /min Univ ersity of [facility] Oxygen saturation in 2023-01-10 22:01:22 97 /min University of Arterial blood by [facility] Pulse oximetry Branch Body weight 2023-01-10 17:43:00 61.236 kg Universi ty of [place] [facility] BMI 2023-01-10 17:43:00 23.91 kg/m2 Universi ty of [facility] Systolic blood 2022-10-11 15:36:00 127 mm[Hg] Univer sity of pressure [facility] Diastolic blood 2022-10-11 15:36:00 85 mm[Hg] Unive rsity of pressure [facility] Heart rate 2022-10-11 15:35:00 100 /min Universi ty of [facility] Body temperature 2022-10-11 15:35:00 36.22 Shabana Univ ersity of [facility] Body height 2022-10-11 15:35:00 160 cm Universi ty of [facility] Body weight 2022-10-11 15:35:00 63.05 kg Universi ty [facility] BMI 2022-10-11 15:35:00 24.62 kg/m2 Universi ty [facility] Oxygen saturation in 2022-10-11 15:35:00 98 /min University of Arterial blood by [facility] Pulse oximetry Branch Systolic blood 2022-08-27 19:25:00 155 mm[Hg] Univer sity of pressure [facility] Diastolic blood 2022-08-27 19:25:00 96 mm[Hg] [facility] Heart rate 2022-08-27 19:24:00 96 /min Universi [facility] Body temperature 2022-08-27 19:24:00 36.28 Shabana [facility] Respiratory rate 2022-08-27 19:24:00 16 /min [facility] height 2022-08-27 19:24:00 160 cm Universi [facility] Body weight 2022-08-27 19:24:00 60.328 kg Universi [facility] BMI 2022-08-27 19:24:00 23.56 kg/m2 Universi [facility] Oxygen saturation in 2022-08-27 19:24:00 98 /min University of Arterial blood by [facility] Pulse oximetry [place] Procedures Procedure Date / Time Performing Clinician Source Performed URINALYSIS 2023-03-05 17:45:00 Carmela Medrano [facility] POCT TEST 2023-03-05 17:45:00 Carmela Medrano [facility] TEST, SERUM 2023-03-05 17:21:00 Carmela Medrano [facility] COMP. METABOLIC PANEL 2023-03-05 17:21:00 Carmela Medrano [facility] ([id number]) [facility] CBC WITH DIFF 2023-03-05 17:21:00 Carmela Medrano [facility] EKG-12 LEAD 2023-01-10 22:28:48 Jose Oliver [place] [facility] POCT GLUCOSE (AUTOMATED) 2023-01-10 21:10:00 Jose Oliver [facility] CT HEAD WO CONTRAST 2023-01-10 19:10:00 Jose Oliver [facility] ACUTE CARE VENOUS BLOOD 2023-01-10 18:56:00 Jose Oliver [facility] GAS [facility] TEST, SERUM 2023-01-10 18:47:00 Jose Oliver [facility] COMP. METABOLIC PANEL 2023-01-10 18:47:00 Jose Oliver [facility] ([id number]) [facility] URINE DRUG (IMMUNOASSAY) 2023-01-10 18:47:00 Jose Oliver [facility] DRUG [facility] SCREEN CBC WITH DIFF 2023-01-10 18:47:00 Jose Oliver [facility] URINALYSIS 2023-01-10 18:47:00 Jose Oliver [facility] POCT GLUCOSE (AUTOMATED) 2023-01-10 18:03:00 Jose Oliver [facility] FLU VACC ([id number]), 6 2022-10-11 16:29:59 Ariana Hernandez [facility] MO-63 YRS, .5ML, IM, [facility] QUAD (FLUCELVAX) SARS-COV-2 COVID-19 2022-10-11 16:28:42 Ariana Hernandez [facility] NINA-SUCROSE VACCINE [address] [place] [address] YRS+, BIVALENT 0.3ML, IM, (PFIZER [employer]) Encounters Start End Encounter Admission Attending Care Care Encounter Source Date/Time Date/Time Type Type Clinicians Facility Department ID 2021-08-15 Emergency [facility] [id number] Univers 06:41:06 ity [facility] 2021-08-14 Emergency [facility] [id number] [facility]13 Emergency [facility] [id number] Univers 20:11:45 [facility] 2020-01-04 Inpatient HCAMN MURPHY [id number] [facility] 16:20:00 57 [facility] 2023-03-11 2023-03-11 Emergency EM Missy, HCACL TERS [id number] [facility] 21:52:00 22:19:00 Vida Conner [facility] 2023-03-05 2023-03-05 Emergency X FAULCONER, [facility] ERT [id number] Univers 11:52:00 14:42:00 CARMELA [facility] 2023-03-05 2023-03-05 Emergency Faulconer, TRAU[place] 1.2.840.114 [id number] Univers 11:52:00 14:42:00 Carmela [place] 350.1.13.10 [place] [id number] [address] 2023-01-24 2023-01-24 Outpatient [facility] [id number] Univers 10:10:00 10:10:00 ARIANA [facility] 2023-01-23 2023-01-23 Outpatient [facility] [id number] Univers 14:00:00 14:00:00 BETO [facility] 2023-01-10 2023-01-10 Emergency X VASUT, [facility] ERT [id number] Univers 12:44:00 18:07:00 JOSE [facility] 2023-01-10 2023-01-10 Emergency Vasut, [place] 1.2.265.879 [id number] Univers 12:44:00 18:07:00 Jose [facility] 350.1.13.10 [place] [id number] [address] 2023-01-07 2023-01-07 [facility] 1.2.840.114 [id number] Univers 00:00:00 00:00:00 Christiane PRIMARY 350.1.13.10 it [place] [id number] Hi dical [address] 2022-11-07 2022-11-07 Yari [facility] 1.2.840.114 [id number] Univers 00:00:00 00:00:00 Christiane PRIMARY 350.1.13.10 [place] [id number] Hi dical [address] 2022-11-06 2022-11-06 [facility] 1.2.840.114 [id number] Univers 00:00:00 00:00:00 Christiane PRIMARY 350.1.13.10 [place] [id number] Hi dical [address] 2022-11-06 2022-11-06 Refill [facility] 1.2.840.114 [id number] Univers 00:00:00 00:00:00 Nadege PRIMARY 350.1.13.10 it [place] [id number] Hi dical [address] 2022-11-03 2022-11-03 [facility] 1.2.840.114 [id number] Univers 00:00:00 00:00:00 Christinae PRIMARY 350.1.13.10 it [place] [id number] Hi dical [address] 2022-10-17 2022-10-17 Outpatient [facility] [id number] Univers 13:30:00 13:30:00 BETO [facility] 2022-10-17 2022-10-17 Outpatient Aileen MCCAULEY [facility] [id number] Univers 13:30:00 13:30:00 BETO [facility] 2022-10-17 2022-10-17 Outpatient Aileen MCCAULEY [facility] [id number] Univers 08:30:00 08:30:00 BETO [facility] 2022-10-11 2022-10-11 Stock Plan Administrator Pcp-Lab [facility] 1.2.840.114 [id number] Univers 10:45:00 11:00:00 Visit Mary Ariana PRIMARY 350.1.13.10 it[place] [id number] Hi dical [address] 2022-10-11 2022-10-11 Outpatient R MARY [facility] [id number] Univers 09:30:00 10:31:36 ARIANA ity of [facility] 2022-10-11 2022-10-11 Office GalloChristiane guillaume [facility] 1.2.840.114 [id number] Univers 09:30:00 10:31:36 Visit Heidi Hernandezrick PRIMARY 350.1.13.10 it[place] [id number] Hi dical [address] 2022-10-11 2022-10-11 Outpatient GCCOVIDV GCCOVIDV [id number] GCCOVID 00:00:00 00:00:00 V 2022-09-19 2022-09-19 [facility] 1.2.840.114 [id number] Univers 00:00:00 00:00:00 Christiane PRIMARY 350.1.13.10 it [place] [id number] Hi dical [address] 2022-09-11 2022-09-11 Refill Garrick [facility] 1.2.840.114 [id number] Univers 00:00:00 00:00:00 Beto PRIMARY 350.1.13.10 it [place] [id number] Hi dical [address] 2022-08-28 2022-08-28 Telephone DARBY Juárez 1.2.409.649 [id number] Univers 00:00:00 00:00:00 Grady RADHA 350.1.13.10 it y of HOSPITAL 4.2.7.2.686 [place] [id number] [facility] [address] 2022-08-27 2022-08-27 Stock Plan Administrator Pcp-Lab [facility] 1.2.840.114 [id number] Univers 15:00:00 15:15:00 Visit Heidi Hernandezrick PRIMARY 350.1.13.10 ity of [place] [id number] Hi dical [address] 2022-08-27 2022-08-27 Office Grady Juárez [facility] 1.2.840.114 [id number] Univers 13:10:00 13:40:00 Visit Ariana Hernandez PRIMARY 350.1.13.10 it[place] [id number] Hi dical [address] 2022-08-27 2022-08-27 Outpatient R MARY [facility] [id number] Univers 13:10:00 13:10:00 ARIANA ity [facility] 2022-08-19 2022-08-19 Refhector [facility] 1.2.840.114 [id number] Univers 00:00:00 00:00:00 Beto PRIMARY 350.1.13.10 [place] [id number] Hi dical [address] 2022-08-19 2022-08-19 Refhector [facility] 1.2.840.114 [id number] Univers 00:00:00 00:00:00 Nadege PRIMARY 350.1.13.10 it [place] [id number] Hi dical [address] 2022-08-19 2022-08-19 [facility] 1.2.840.114 [id number] Univers 00:00:00 00:00:00 Christiane PRIMARY 350.1.13.10 it [place] [id number] Hi dical [address] 2022-08-18 2022-08-18 Refhector [facility] 1.2.840.114 [id number] Univers 00:00:00 00:00:00 Beto PRIMARY 350.1.13.10 it [place] [id number] Hi dical [address] 2022-07-26 2022-07-26 Outpatient R MARY [facility] [id number] Univers 09:30:00 09:30:00 ARIANA ity [facility] 2022-06-25 2022-06-25 Outpatient R GARRICK [facility] [id number] Univers 16:00:00 16:00:00 BETO ity [facility] 2022-06-25 2022-06-25 Outpatient R GARRICK [facility] [id number] Univers 16:00:00 16:00:00 BETO ity [facility] 2022-06-17 2022-06-17 [facility] 1.2.840.114 [id number] Univers 00:00:00 00:00:00 Beto PRIMARY 350.1.13.10 [place] [id number] Hi dical [address] 2022-05-22 2022-05-22 Yari [facility] 1.2.840.114 [id number] Univers 00:00:00 00:00:00 Nadege PRIMARY 350.1.13.10 it [place] [id number] Hi dical [address] 2022-05-17 2022-05-17 Outpatient R [facility] [id number] Univers 10:10:00 10:10:00 ity [facility] 2022-04-17 2022-04-17 Yari [facility] 1.2.840.114 [id number] Univers 00:00:00 00:00:00 Beto PRIMARY 350.1.13.10 [place] [id number] Hi dical [address] 2022-04-10 2022-04-10 Outpatient Aileen MCCAULEY [facility] [id number] Univers 09:00:00 09:00:00 BETO ity [facility] 2022-04-10 2022-04-10 Outpatient R GARRICK [facility] [id number] Univers 09:00:00 09:00:00 BETO ity [facility] 2022-04-06 2022-04-06 Outpatient [facility] [id number] Univers 09:00:00 09:00:00 LUIS itangela [facility] 2022-03-22 2022-03-22 Refill [facility] 1.2.840.114 [id number] Univers 00:00:00 00:00:00 Nadege PRIMARY 350.1.13.10 [place] [id number] Hi dical [address] 2022-03-10 2022-03-10 Refhector Benjamin[facility] 1.2.840.114 [id number] Univers 00:00:00 00:00:00 Nadege PRIMARY 350.1.13.10 it [place] [id number] Hi dical [address] 2022-03-10 2022-03-10 [facility] 1.2.840.114 [id number] Univers 00:00:00 00:00:00 Beto PRIMARY 350.1.13.10 [place] [id number] Hi dical [address] 2022-03-01 2022-03-01 Outpatient R KELLY WHITE [facility] [id number] Univers 14:45:00 14:45:00 ity [facility] 2022-02-22 2022-02-22 Outpatient R AMANDA [facility] [id number] Univers 13:45:00 13:45:00 PETER ity [facility] 2022-02-16 2022-02-16 Telephone DARBY Benjamin 1.2.979.849 [id number] Univers 00:00:00 00:00:00 Nadege RADHA 350.1.13.10 it y of HOSPITAL 4.2.7.2.686 [place]ito [place] [id number] [place] [address] 2022-02-15 2022-02-15 J[facility]en [facility] 1.2.211.881 [id number] Univers 00:00:00 00:00:00 Management Tonya M PRIMARY 350.1.13.10 [place] [id number] Hi dical [address] 2022-02-14 2022-02-14 Stock Plan Administrator Pcp-Lab [facility] 1.2.840.114 [id number] Univers 15:00:00 15:15:00 Visit Susie Lawton PRIMARY 350.1.13.10 it[place] [id number] Hi dical [address] 2022-02-14 2022-02-14 Outpatient [facility] [id number] Univers 15:00:00 15:00:00 SUSIE joseph [facility] 2022-02-14 2022-02-14 Outpatient R JOEL [facility] [id number] Univers 13:30:00 14:45:32 SUSIE joseph [facility] 2022-02-14 2022-02-14 Office SouravNadege [facility] 1.2.840.114 [id number] Univers 13:30:00 14:45:32 Visit Susie Lawton PRIMARY 350.1.13.10 [place] [id number] Hi dical [address] 2022-01-19 2022-01-19 Patient [facility] 1.2.840.114 [id number] Univers 00:00:00 00:00:00 Secure Msg Christiane PRIMARY 350.1.13.10 it[place] [id number] Hi dical [address] 2022-01-19 2022-01-19 Refill Sourav [facility] 1.2.840.114 [id number] Univers 00:00:00 00:00:00 Nadege PRIMARY 350.1.13.10 it [place] [id number] [facility] [address] 2022-01-18 2022-01-18 Outpatient Aileen STEEN [facility] [id number] Univers 15:00:00 15:00:00 KELTON dave joseph [facility] 2022-01-18 2022-01-18 Outpatient [facility]ileen [facility] [id number] Univers 15:00:00 15:00:00 KELTON ity o f [facility] 2022-01-05 2022-01-05 Outpatient R GARRICK [facility] [id number] Univers 09:00:00 10:03:21 BETO ity [facility] 2022-01-05 2022-01-05 Outpatient R GARRICK [facility] [id number] Univers 09:00:00 10:03:21 BETO ity [facility] 2022-01-05 2022-01-05 Office [facility] 1.2.840.114 [id number] Univers 09:00:00 10:03:21 Visit Beto PRIMARY 350.1.13.10 it [place] [id number] Hi dical [address] 2022-01-05 2022-01-05 Outpatient Aileen GARRICK [facility] [id number] Univers 09:00:00 09:00:00 BETO ity [facility] 2022-01-05 2022-01-05 Telephone [facility] 1.2.289.432 [id number] Univers 00:00:00 00:00:00 Nadege PRIMARY 350.1.13.10 it [place] [id number] Hi dical [address] 2022-01-04 2022-01-04 Outpatient R MICKEY [facility] [id number] Univers 11:54:08 23:59:00 LUIS acosta [facility] 2022-01-04 2022-01-04 [facility] 1.2.840.114 [id number] Univers 11:54:08 23:59:00 Encounter Luis PRIMARY 350.1.13.10 ity of [place] [id number] Hi dical [address] 2022-01-04 2022-01-04 Office [facility] 1.2.840.114 [id number] Univers 10:20:00 11:50:44 Visit Luis Arevalo PRIMARY 350. 1.13.10 it[place] [id number] Hi dical [address] 2022-01-04 2022-01-04 Outpatient R MICKEY [facility] [id number] Univers 10:20:00 11:50:44 LUIS ity [facility] 2021-12-25 2021-12-25 Telephone [facility] 1.2.346.333 [id number] Univers 00:00:00 00:00:00 Christiane PRIMARY 350.1.13.10 it [place]2.[place] [id number] Hi dical [address] 2021-12-22 2021-12-22 Stock Plan Administrator Pcp-Lab [facility] 1.2.840.114 [id number] Univers 08:00:00 08:15:00 Visit Federico Hernandez PRIMARY 350.1.13.1 0 it[place] [id number] Hi dical [address] 2021-12-22 2021-12-22 Outpatient R FEDERICO HERNANDEZ [facility] [id number] Univers 08:00:00 08:00:00 ity [facility] 2021-12-22 2021-12-22 Telephone [facility] 1.2.416.833 [id number] Univers 00:00:00 00:00:00 Nadege PRIMARY 350.1.13.10 it y of [place] [id number] Hi dical [address] 2021-12-21 2021-12-21 Stock Plan Administrator Pcp-Lab [facility] 1.2.840.114 [id number] Univers 11:45:00 12:00:00 Visit Federico Hernandez PRIMARY 350.1.13.1 0 ity of C[place] [id number] Hi dical [address] 2021-12-21 2021-12-21 Outpatient R FEDERICO HERNANDEZ [facility] [id number] Univers 11:45:00 11:45:00 ity of [facility] 2021-12-21 2021-12-21 Outpatient R FEDERICO HERNANDEZ [facility] [id number] Univers 10:30:00 11:26:38 ity of [facility] 2021-12-21 2021-12-21 Office Nadege Benjamin [facility] 1.2.840.114 [id number] Univers 10:30:00 11:26:38 Visit Federico Hernandez PRIMARY 350.1.13.1 0 it[place] of [place] [id number] Hi dical [address] 2021-12-21 2021-12-21 Outpatient R FEDERICO HERNANDEZ [facility] [id number] Univers 10:30:00 11:26:38 ity of [facility] 2021-12-21 2021-12-21 Orders Doctor DARBY 1.2.840.114 [id number] Univers 00:00:00 00:00:00 Only Unassigned, RADHA 350.1.13.10 ity of [place] [facility] 4.2.7.2.686 Rito as [id number] [address] 2021-12-05 2021-12-05 Ref[facility]ctor [facility] 1.2.840.114 [id number] Univers 00:00:00 00:00:00 Christiane PRIMARY 350.1.13.10 it [place] [id number] Hi dical [address] 2021-12-01 2021-12-01 Refhector [facility] 1.2.840.114 [id number] Univers 00:00:00 00:00:00 Christiane PRIMARY 350.1.13.10 it y of C[place]2.[place] [id number] Hi dicmo [address] 2021-12-01 2021-12-01 Ref[facility]ctor [facility] 1.2.840.114 [id number] Univers 00:00:00 00:00:00 Christiane PRIMARY 350.1.13.10 it y of C[place]2.7.2.[place] [id number] Hi dical [address] 2021-11-23 2021-11-23 Outpatient R SHAMEKA, [facility] [id number] Univers 09:50:00 09:50:00 [facility]-11-[facility] 2021-11-20 Outpatient R CELSA, [facility] [id number] Univers 08:45:00 08:45:00 KELTON ity o f [facility] 2021-10-23 2021-10-23 Outpatient R GARRICK [facility] [id number] Univers 09:00:00 09:00:00 BETO [facility] 2021-10-23 2021-10-23 Outpatient R GARRICK [facility] [id number] Univers 09:00:00 09:00:00 BETO [facility] 2021-10-20 2021-10-20 Outpatient R UNKNOWN, [facility] [id number] Univers 09:30:00 09:58:06 ATTENDING [facility] 2021-10-20 2021-10-20 Office Benitez, [facility] 1.2.840.114 [id number] Univers 09:30:00 09:58:06 Visit Unknown, Attending PRIMARY 350.1.13.10 it[place] [id number] Hi dical [address] 2021-10-20 2021-10-20 Outpatient R HEMANT, [facility] [id number] Univers 09:30:00 09:58:06 RANDI [facility] 2021-10-19 2021-10-19 Outpatient R UNKNOWN, [facility] [id number] Univers 09:10:00 09:10:00 ATTENDING [facility] 2021-10-19 2021-10-19 Outpatient R UNKNOWN, [facility] [id number] Univers 08:40:00 08:40:00 ATTENDING [facility] 2021-10-12 2021-10-12 Outpatient R UNKNOWN, [facility] [id number] Univers 11:10:00 11:10:00 ATTENDING y [facility] 2021-10-11 2021-10-11 Telephone JAMIL [place] 1.2.840.114 [id number] Univers 00:00:00 00:00:00 Ashkan RADHA 350.1.13.10 it y of HOSPITAL 4.2.7.2.686 [place]ito as [id number] [facility] [address] 2021-10-10 2021-10-10 Telephone Valnetina [facility] 1.2.840.114 [id number] Univers 00:00:00 00:00:00 Ashkan PRIMARY 350.1.13.10 it y of CARE 4.2.7.2.686 Ritoa s JOSE RAFAEL [id number] Hi dical [address] 2021-10-05 2021-10-05 Office Ashkan Montgomery [facility] 1.2.840.1 14 [id number] Univers 08:30:00 11:24:21 Visit Unknown, Attending PRIMARY 350.1.13.10 [facility]y [facility] C[facility] 4.2.7.2.686 [place] JOSE RAFAEL [id number] Hi diclatisha [address] 2021-10-05 2021-10-05 Outpatient R FEDERICO HERNANDEZ [facility] [id number] Univers 08:30:00 11:24:21 ity [facility] 2021-10-05 2021-10-05 Outpatient R FEDERICO HERNANDEZ [facility] [id number] Univers 08:30:00 11:24:21 ity [facility] 2021-10-05 2021-10-05 Outpatient R [facility] [id number] Univers 09:50:00 09:50:00 ity [facility] 2021-10-05 2021-10-05 Outpatient R FEDERICO HERNANDEZ [facility] [id number] Univers 08:30:00 08:30:00 ity [facility] 2021-09-15 2021-09-15 Outpatient R MICKEY [facility] [id number] Univers 08:30:00 08:30:00 LUIS ity [facility] 2021-09-14 2021-09-14 Outpatient R MICKEY [facility] [id number] Univers 08:30:00 08:30:00 LUIS acosta of [facility] 2021-08-04 2021-08-04 Office Christiane Gallo [facility] 1.2.840.114 [id number] Univers 10:52:56 11:42:34 Visit JoseRandi roberson 350.1.13.10 ity of [place]2.[place] [id number] Hi dical [address] 2021-08-04 2021-08-04 Outpatient R HEMANT [facility] [id number] Univers 10:40:00 10:40:00 RANDI acosta of [facility] 2021-08-02 2021-08-02 Transition Cisco Mace 1.2.840.114 [id number] Univers 00:00:00 00:00:00 of Care Margot Valdes 350.1.13.10 it y of [place] [id number] [facility] [address] 2021-08-01 2021-08-01 Emergency RoxannaSamantha TRAUMA 1.2. 840.114 [id number] Univers 16:10:00 23:04:00 Kyaw [place] 350.1.13.10 it[place] [id number] [facility] [address] 2021-08-01 2021-08-01 Emergency X KYAW SOTO [facility] ERT [id number] Univers 16:10:00 23:04:00 ity of [facility] 2021-08-01 2021-08-01 Transition Cisco Mace 1.2.840.114 [id number] Univers 00:00:00 00:00:00 of Care Margot Valdes 350.1.13.10 it [place] of [place].2.[place] [id number] [facility] [address] 2021-07-27 2021-07-30 Hospital Carmela Rawls 1.2.840. 114 [id number] Univers 07:39:00 21:15:00 Encounter Leonel Stock[place] 350.1.13.10 ity of [facility] 4.2.7.2.686 [place] [id number] [facility] [address] 2021-05-31 2021-05-31 Outpatient GCCOVIDV GCCOVIDV [id number] GCCOVID 00:00:00 00:00:00 V 2021-04-23 2021-04-23 Outpatient GCCOVIDV GCCOVIDV [id number] [facility] 00:00:00 00:00:00 V 2021-04-19 2021-04-20 Emergency Suyapa, TRAUMA 1.2.154.787 [id number] [facility] [place] 20:22:00 02:54:00 [facility] 350.1.13.10 it[place] [id number] [facility] [address] 2021-04-03 2021-04-03 Outpatient Yaya CHW CHW [id number] [facility] 11:38:00 11:38:00 , [facility] 2021-03-02 2021-03-02 Emergency Vasut, TRAU[place] 1.2.873.303 [id number] [facility] [place] 08:05:00 14:27:00 Jose J [place] 350.1.13.10 it [place] [id number] [facility] [address] 2021-03-02 2021-03-02 Emergency Vasut, TRAU[place] 1.2.170.568 [id number] 08:05:00 14:27:00 Jose J CENTER 350.1.13.10 4.2.7.2.686 [id number] 2021-02-11 2021-02-11 Outpatient RONEY Alexis CHW [id number] [facility] 08:31:00 08:31:00 [facility] 2021-02-10 2021-02-10 Outpatient RONEY Alexis CHAmanda [id number] [facility] 15:30:00 15:30:00 [facility] 2020-12-08 2020-12-08 Outpatient RONEY Alexis CHW [id number] [facility] 15:22:00 15:22:00 [facility] 2020-12-082020-12-08 Outpatient Vanesa, RONEY CHW [id number] [facility] 15:12:00 15:12:00 [facility] luisa [facility] 2020-07-15 2020-07-15 Outpatient Aileen MARCOS [facility] [id number] Univers 11:10:00 11:10:00 RANDI valentinangela of [facility] 2020-05-09 2020-05-09 Transition Cisco Kate [id number] [facility] 00:00:00 00:00:00 of Care Talisha Valdes 350.1.13.10 [id number] [address] 2020-05-09 2020-05-09 Transition Cisco Kate [id number] 00:00:00 00:00:00 of Care Talisha Valdes 350.1.13.10 [place] 4.2.7.2.686 [id number] [facility] 2020-04-19 2020-04-19 Telephone Jiang, [facility] 1.2.840.114 [id number] [facility] [place] 00:00:00 00:00:00 Rosey F PRIMARY 350.1.13.10 it [place] [id number] [address] 2020-04-19 2020-04-19 [facility] [id number] 00:00:00 00:00:00 Rosey F PRIMARY 350.1.13.10 CARE 4.2.7.2.686 PAVILLION [id number] [facility] 2020-04-15 2020-04-15 Office Ashkan Montgomery [facility] 1.2.840.1 [id number] [facility] [place] 11:37:45 12:39:54 Visit Unknown, Attending PRIMARY 350.1.13.10 [place]y [place] [id number] [address] 2020-04-15 2020-04-15 Office Valentina [facility] [id number] 11:37:45 12:39:54 Visit Ashkan PRIMARY 350.1.13.10 [facility] 4.2.7.2.686 [place] [id number] 2020-04-15 2020-04-15 Outpatient R GABRIELLE, [facility] [id number] Univers 11:10:00 11:10:00 ATTENDING [facility] 2020-04-07 2020-04-11 [facility] [id number] [facility] 22:03:36 17:31:00 [facility] 2020-04-07 2020-04-11 Emergency Mihai Pena 1.2.840.114 [id number] [facility] 22:03:36 17:31:00 Pallavi Chong 350.1.13.10 [facility] 4.2.7.2.686 [place] [id number] [place] [id number] [place] 2020-03-22 2020-03-22 Outpatient Ripsin, CHW CHW [id number] [facility] 09:43:00 09:43:00 [facility] 2020-03-14 2020-03-14 Outpatient Ripsin, CHW CHW [id number] [facility] 11:20:00 11:20:00 [facility] 2020-03-09 2020-03-09 Outpatient Ripsin, CHW CHW [id number] [facility] 15:02:00 15:02:00 [facility] 2020-02-29 2020-02-29 Outpatient Ripsin, CHW CHW [id number] [facility] 08:15:00 08:15:00 [facility] 2019-12-17 2019-12-17 Outpatient Ripsin, CHW CHW [id number] [facility] 13:00:00 13:00:00 [facility] 2019-12-16 2019-12-16 Outpatient Ripsin, CHW CHW [id number] [facility] 13:16:00 13:16:00 [facility] 2019-12-15 2019-12-15 Outpatient Ripsin, CHW CHW [id number] [facility] 09:20:00 09:20:00 [facility] 2019-11-11 2019-11-11 Outpatient Ripsin, CHW CHW [id number] [facility] 15:14:00 15:14:00 [facility] 2019-11-06 2019-11-06 Outpatient Ripsin, W W [id number] [facility] 16:58:00 16:58:00 [facility] 2019-11-06 2019-11-06 Outpatient Ripsin, W W [id number] [facility] 11:44:00 11:44:00 [facility] 2019-11-03 2019-11-03 Outpatient Ripsin, W W [id number] [facility] 09:00:00 09:00:00 [facility] 2019-10-27 2019-10-27 Outpatient Prasad, [facility] [id number] [facility] 08:30:00 08:30:00 [facility] 2019-08-29 2019-08-30 Emergency X GRACIELA, [facility] ERT [id number] [facility] 18:44:57 00:51:00 SAHIL acosta [facility] 2019-08-05 2019-08-05 Outpatient Ripsin, [facility] [id number] [facility] 08:53:00 08:53:00 [facility] 2019-07-31 2019-07-31 Outpatient Ripsin, [facility] [id number] [facility] 16:20:00 16:20:00 [facility] 2019-07-14 2019-07-14 Outpatient Miguel A [facility] [id number] [facility] 14:00:00 14:00:00 [facility] 2019-06-08 2019-06-08 Patient Viky Owusu Cisco [id number] [facility] 00:00:00 00:00:00 Outreach [place] [id number] [place] [id number] [facility] [address] 2019-06-08 2019-06-08 Patient Kathleen Cisco [id number] [facility] 00:00:00 00:00:00 Outreach Dary Posada [place] [id number] [id number] [id number] [facility] [address] 2019-06-02 2019-06-06 [facility] Mihai Pena [id number] [facility] 06:45:01 13:30:00 Encounter Leonel [place] [id number] ity [facility] [id number] [place] [id number] [facility] [address] [place] 2019-05-22 2019-05-22 Outpatient Juárez, W W [id number] [facility] 11:18:00 11:18:00 [facility] 2019-05-19 2019-05-19 [id number] 10:20:00 10:20:00 [facility] 2018-09-18 2018-09-18 Outpatient Dee, W W [id number] [facility] 07:47:00 07:47:00 [facility] 2018-07-01 2018-07-01 Outpatient Steele-Ruthann W W [id number] [facility] 08:59:00 08:59:00 [facility] 2018-06-24 2018-06-24 Outpatient Steele-Ruthann W W [id number] [facility] 11:10:00 11:10:00 [facility] 2018-06-18 2018-06-18 [id number] 08:30:00 08:30:00 [facility] 2018-06-13 2018-06-13 [id number] 09:29:00 09:29:00 [facility] 2018-06-12 2018-06-12 [id number] 11:20:00 11:20:00 [facility] Results Test Description Test Time Test Comments Results Result Comments Source GLUCOSE BEDSIDE 2023-03-11 22:16:00 Test Item Value Reference Range Interpretation Comme nts GLUCOSE BEDSIDE (test code = 184 MG/DL 70-110 H Performed by certified mangle operator garments at [facility]) [facility] POCT [id number] 17:45:00 Test Item Value Reference Range Interpretation Comments POCT PREG (test code = 1605) Negative On board controls acceptable with No C Line (test code = 3574) POCT PREG LOT # (test code = 2164) [id number] POCT PREG TEST DATE (test 05/21/2024 code = 3576) Lab Interpretation (test code = Normal 38407-7) [facility] GLUCOSE (AUTOMATED)2023-01-10 22:08:46 Test Item Value Reference Range Interpretation Comments POCT GLU (test code = 9622583967) 70-110 HH Lab Interpretation (test code = Abnormal 39620-2) [facility] GLUCOSE (AUTOMATED)2023-01-10 21:11:15 Test Item Value Reference Range Interpretation Comments POCT GLU (test code = 9944967615) 324 mg/dL 70-110 H Lab Interpretation (test code = Abnormal 51451-3) [facility] WITH [id number] 19:26:23 Test Item Value Reference Range Interpretation Comments WBC (test code = 6.68 See_Comment [Automated 6690-2) message] The sy stem which generated this result transmitted reference range : 4.30 - 11.10 10*3/?L. The reference range was not used to interpret this result as normal/abnormal . RBC (test code = 4.44 See_Comment [Automated 899-8) message] The sy stem which generated this result transmitted reference range : 3.93 - 5.25 10*6/?L. The reference range was not used to interpret this result as normal/abnormal . HGB (test code = 8.5 g/dL 11.6-15.0 L 718-7) HCT (test code = 30.0 % 35.7-45.2 L 4544-3) MCV (test code = 67.6 fL 80.6-95.5 L 787-2) MCH (test code = 19.1 pg 25.9-32.8 L 785-6) MCHC (test code = 28.3 g/dL 31.6-35.1 L 786-4) RDW-SD (test code = 43.2 fL 39.0-49.9 91319-8) RDW-CV (test code = 18.4 % 12.0-15.5 H 788-0) PLT (test code = 200 See_Comment [Automated 777-3) message] The sy stem which generated this result transmitted reference range : 166 - 358 10*3/ ?L. The reference r kenny was not used to interpret this result as normal/abnormal . MPV (test code = Not Measure d 21314-5) IPF % (test code = 10.8 % 1.3-7.7 H Platelet count 3660385606) measured by fluorescence method. NRBC/100 WBC (test 0.0 See_Comment [Automat ed code = 3564489173) message] The system which generated this result transmitted reference range : 0.0 - 10.0 /100 WBCs. The refer ence range was not u sed to interpret th is result as normal/abnormal . NRBC x10^3 (test code See_Comment [Auto mated = 2126081455) message] The s ystem which generated this result transmitted reference range : 10*3/?L. The reference range was not used to interpret this result as normal/abnormal . GRAN MAT (NEUT) % 52.7 % (test code = 770-8) IMM GRAN % (test code 0.30 % = 1193794992) LYMPH % (test code = 37.9 % 736-9) MONO % (test code = 5.7 % 5905-5) EOS % (test code = 2.8 % 713-8) BASO % (test code = 0.6 % 706-2) GRAN MAT x10^3(ANC) 3.52 10*3/uL 1.88-7.09 (test code = 8895583408) IMM GRAN x10^3 (test 0.00-0.06 code = 0138270014) LYMPH x10^3 (test code 2.53 10*3/uL 1.32-3.29 = 731-0) MONO x10^3 (test code 0.38 10*3/uL 0.33-0.92 = 742-7) EOS x10^3 (test code = 0.19 10*3/uL 0.03-0.39 711-2) BASO x10^3 (test code 0.04 10*3/uL 0.01-0.07 = 704-7) Lab Interpretation Abnormal (test code = 76981-4) [facility] (21061)2023-01-10 19:09:13 Test Item Value Reference Range Interpretation Comments NA (test code = 131 mmol/L 135-145 L 3597097810) K (test code = 4.5 mmol/L 3.5-5.0 9444380956) CL (test code = 99 mmol/L 98-108 4834753389) CO2 TOTAL (test code = 24 mmol/L 23-31 4246706341) AGAP (test code = 8 2-16 2563151365) BUN (test code = 18 mg/dL 7-23 1005722761) GLUCOSE (test code = 613 mg/dL 70-110 HH 8755737102) CREATININE (test code = 0.61 mg/dL 0.50-1.04 9132595107) TOTAL BILI (test code = 0.2 mg/dL 0.1-1.3 2012811171) CALCIUM (test code = 8.0 mg/dL 8.6-10.6 L 8131373339) T PROTEIN (test code = 6.3 g/dL 6.3-8.2 5196451635) ALBUMIN (test code = 3.8 g/dL 3.5-5.0 6959779731) ALK PHOS (test code = 100 U/L 34-122 8284152043) ALTv (test code = 24 U/L 5-35 1742-6) AST(SGOT) (test code = 31 U/L 13-40 6258895094) eGFR (test code = 113.0 mL/min/1.73m2 5978177541) MORIAH (test code = MORIAH) Association of Glomerular Filtration Rate (GFR) and Staging of Kidney Disease* + --+ --+ ------+| GFR (mL/min/1.73 m2) ?| With Kidney Damage ?| ?Without Kidney Damage+ --------+ --------+ +| ?>90 ?| ?Stage one ?| ? Normal ?+ ---+ ---+ -------+| ?60-89 ?| ?Stage two ?| ? Decreased GFR ? + --+ --+ ------+| ?30-59 ?| ?Stage three ?| ? Stage three ? + --+ --+ ------+| ?15-29 ?| ?Stage four ? | ? Stage four ?+ ---+ ---+ -------+| ?<15 (or dialysis) ? ?| ?Stage five ? | ? Stage five ?+ ---+ ---+ -------+ *Each stage assumes the associated GFR level has been in effect for at least three months. ?Stages 1 to 5, with or without kidney disease, indicate chronic kidney disease. Notes: Determination of stages one and two (with eGFR >59mL/min/1.73 m2) requires estimation of kidney damage for at least three months as defined by structural or functional abnormalities of the kidney, manifested by either:Pathological abnormalities or Markers of kidney damage (including abnormalities in the composition of the blood or urine or abnormalities in imaging tests). Lab Interpretation Abnormal (test code = 51726-9) [facility] VENOUS BLOOD [id number] 19:03:55 Test Item Value Reference Range Interpretation Comments PH (test code = 7.39 7.32-7.42 3745131581) PCO2 JAMEY (test code = 40 See_Comment L [Auto mated message] 5765939014) The system [employer] generated this result transmitted ref erence range: 41 - 51 mmHg. The reference r kenny was not used to interpret this result as normal/abnor mal. PO2 JAMEY (test code = 98 See_Comment HH [Autom ated message] 3083343542) The system [employer] generated this result transmitted ref erence range: 25 - 40 mmHg. The reference r kenny was not used to interpret this result as normal/abnor mal. HCO3 JAMEY (test code = 24 See_Comment [Auto mated message] 9296924189) The system [employer] generated this result transmitted ref erence range: 24 - 28 mEq/L. The reference r kenny was not used to interpret this result as normal/abnor mal. AC VBE(BEAKER) (test -0.8 mEq/L code = 4730427526) Lab Interpretation (test Abnormal code = 05678-3) [facility], [id number] 19:03:50 Test Item Value Reference Range Interpretation Comments PREG SERUM (test code Negative = 7553431552) MORIAH (test code = MORIAH) Less than 10 IU/L. ?If low titer or ectopic is suspected, resubmit specimen in 48-72 hours. [facility] Notes Date/Time Note Provider Source 2023-03-11 22:17:00-00:00 [facility] ([facility]) EMERGENCY PROVIDER REPORT REPORT#:[id number] REPORT STATUS: Signed DATE:03/11/23 TIME: 2216 PATIENT: JENAE FRANZ UNIT #: [id number] ROOM/BED: AGE: 32 SEX: F PCP PHYS: [facility] SERV[facility] AUTHOR: Vida Louis MD * ALL edits or amendments must be made on the [employer] document * HPI-General Illness General Initial Greet Date/Time 03/11/232152 Presentation Chief Complaint __ (my glucose is up) Hx Obtained From Patient Sudden in Onset? No Onset Occurred Today Severity: Onset Mild Severity: Current No pain currently Associated with Denies: Abdominal pain, Anorexia, Aura, Bleeding , Bruising, Chest pain, Congestion, Cough, Diaphoresis, Difficulty breat destin, Difficulty swallowing, Discharge, Dizziness, Fever, Headache, Inability to bear weight, Itching, Joint pain, Loss of consciousness, Loss of taste, Loss of smell, Nasal discharge, Nausea, Neck pain, Numb extremities, Off balance, Pain, Pain on walking, Rash, Shortness of breath, Speech abnormal, Syncope, V ision change, Vomiting, Weak extremity, Weakness. Exacerbated by Nothing Relieved by Nothing Review of Systems ROS Statements All systems rev neg except as marked. Review of Systems Respiratory Denies: Dyspnea on exertion, Parox nocturnal dys pnea. Cardiovascular Denies: Orthopnea, Syncope. Past Medical History - Adult Stated Complaint ELEVATED GLUCOSE/ 232 PEREMS Allergies Coded Allergies: No Known Allergies (03/11/23) Home Medications Active Scripts BACLOFEN (LIORESAL) 5 MG PO TID HYDROcodone/APAP (HYDROcodone/APAP 5) 1 TAB PO Q6H PRN PRN PAIN SCALE 4-6 Moderate MORPHINE SULFATE (MORPHINE SULFATE INJ) 1 MG IV Q6H PRN PRN PAIN SCALE 4-6 Moderate LACTOBACILLUS ACIDOPHILUS (PROBIOTIC ACIDOPHILUS ) 1 CAP PO TID ONDANSETRON (ZOFRAN) 4 MG IV Q8H PRN PRN NAUSEA AND VOMITING INSULIN ASPART (NovoLOG) 10 UNIT SUBQ AC INSULIN DETEMIR (LEVEMIR) 55 UNIT SUBQ BEDTIME INSULIN DETEMIR (LEVEMIR) 20 UNIT SUBQ DAILY COLLAGENASE (SANTYL OINT) 1 APPLIC TOPICAL DAILY ceFAZolin (ANCEF) 2 GM IV Q8H Reported Medications INSULIN ASPART (NovoLOG CARTRIDGE (15mL)) 0 SUBQ AC HS Calculated Suicide Risk (nurs) No risk Past Medical History: Reports: Diabetes mellitus. Denies: Asthma, Canc er, Congestive heart failure, COPD, Coronary artery disease, Dementia, GERD/ga stritis, Hypertension, Kidney disease/stones, Seizure disorder, Transient isch emic attack, Dyslipidemia, Gallbladder dis/stones, GI b leed, Headache disorder, Pancreatitis, Peptic ulcer disease, Sickle cell disease, Thyroid disorder, Urinary tract infection. Past Surgical History: Reports: , Tonsillectomy. Denies: Appen dectomy, Bariatric procedure, CABG, Carotid endarterectomy , Cholecystectomy, Dialysis shunt/AV fistula, Hernia repair, Hysterectomy, Pacema ker, Spine surgery, Bilateral tubal ligation, Breast biopsy/procedure, D C, Hip procedure, ICD, Knee procedure. Smoking status for patients 13 years old or olde r: Current every day smoker Physical Exam Vital Signs Vital Signs First Documented: Result Date Time Pulse Ox 99 03/11 2153 B/P 134/88 03/11 2153 B/P Mean 103 03/11 2153 O2 Delivery Room air 03/11 2153 Temp 37.0 03/11 2153 Pulse 98 03/11 2153 Resp 16 03/11 2153 Last Documented: Result Date Time Pulse Ox 99 03/11 2153 B/P 134/88 03/11 2153 B/P Mean 103 03/11 2153 O2 Delivery Room air 03/11 2153 Temp 37.0 03/11 2153 Pulse 98 03/11 2153 Resp 16 03/11 2153 Review of Vital Signs Reviewed Basic Physical Exam Basic PE GEN: Well appearing /NAD, HEAD: Atraumatic/NC, EYES: PERRL, conj clear, ENT: Membranes moist, NECK: Supple, RESP: No res p distress, CV: Reg rate rhythm, ABD: Soft/non-tender , EXT: No gross abnormality, SKIN: No rashes, warm/ dry, NEURO: alert oriented, NEURO: gross movemen t NL, PSYCH: NL thought content Interpretation Diagnostics Lab Results Interpretation Results Laboratory Tests: 03/11 2205 Chemistry POC Glucose (70 - 110 MG/DL) 184 H Lab Statement Laboratory studies reviewed and considered in e medical decision-making. Re-Evaluation MDM Re-Evaluation/Progress #1 Re-Eval Status Resolved Patient Discharge Departure Vital Signs/Condition Vital Signs First Documented: Result Date Time Pulse Ox 99 03/11 2153 B/P 134/88 03/11 2153 B/P Mean 103 03/11 2153 O2 Delivery Room air 03/11 2153 Temp 37.0 03/11 2153 Pulse 98 03/11 2153 Resp 16 03/11 2153 Last Documented: Result Date Time Pulse Ox 99 03/11 2153 B/P 134/88 03/11 2153 B/P Mean 103 03/11 2153 O2 Delivery Room air 03/11 2153 Temp 37.0 03/11 2153 Pulse 98 03/11 2153 Resp 16 03/11 2153 All vital signs available at the time of this en try have been reviewed. Clinical Impression Clinical Impression Primary Impression: Hyperglycemia Disposition Decision Discharge )( Discharged to Home Yes )( Time 2217 )( Date 03/11/23 Discharge/Care Plan Patient Instructions ED Diabetes- Overview Referrals Provider Referral: Santiago Lawton MD Address: [address] [place] [address] Electronically Signed by Vida Louis MD on 0 03/12/[address] [facility] #:[id number] END OF REPORT 2020-01-04 16:40:00-00:00 [facility] ([facility]) EMERGENCY PROVIDER REPORT REPORT#:[id number] REPORT STATUS: Signed DATE:01/04/20 TIME: 1640 PATIENT: JENAE FRANZ UNIT #: [id number] ROOM/BED: AGE: 29 SEX: F PCP PHYS: No Primary or Family Ph ysician SERVICE AUTHOR: Haleigh Hurtado MD * ALL edits or amendments must be made on the el ectronic/computer document * HPI-Ear Pain/Problem/FB General Confirmed Patient Yes Initial Greet Date/Time 01/04/20 1621 PCP [facility] Presentation Chief Complaint Bilateral ear pain Hx Obtained From Patient Onset Occurred 3 days ago Symptom Duration Since onset Progression since Onset Unchanged Severity: Onset Moderate Severity: Current Moderate Associated with Reports: Cough. Denies: Fever, Nausea, Sore thro at, Vomiting. Associated Other L eyelid swelling Free Text HPI Notes Free Text HPI Notes 29 y/o F, with PMHx of IDDM, presents to the ED c/o bilateral earache with associated L eyelid swelling onset 3 days ago. In addition, pt notes cough since today AM. She denies fever, sore throat, N/V or any other acute sxs. Pt admits tobacco use. Reports NKDA. Portions of this section were scribed by Parker Ortiz on 01/04/20 at 1826 Review of Systems ROS Statements All systems rev neg except as marked. Focused Review of Systems Constitutional Denies: Chills, Fatigue, Fever. Ears/Nose/Throat Reports: Earache bilat. Denies: Sinus problem, S ore throat. Additional Review of Systems Eyes Reports: Swelling L (L lower eyelid). Denies: Bl urred bilat, Discharge L, Photophobia. Respiratory Reports: Cough, non-productive. Denies: Shortnes s of breath, Wheezing. Cardiovascular Denies: Chest pain, Palpitations, Syncope. GI Denies: Abdominal pain, Nausea, Vomiting. Female Denies: Dysuria, Flank pain, Hematuria. Musculoskeletal Denies: Back pain, Extremity pain, Extremity swe lling. Hematologic Denies: Bleeding, Bruising, Petechiae. Skin Denies: Diaphoresis, Erythema, Jaundice. Allergy/Immun Denies: Itching, Rhinorrhea, Sneezing. Neurologic Denies: Headache, Lightheaded, Syncope. Portions of this section were scribed by Parker Ortiz on 01/04/20 at 9537 Past Medical History - Adult Stated Complaint EAR PAIN Allergies Coded Allergies: No Known Allergies (03/27/16) Home Medications Active Scripts BACLOFEN (LIORESAL) 5 MG PO TID HYDROcodone/APAP (NORCO 10/325) 1 TAB PO Q6H PRN PRN PAIN SCALE 4-6 Moderate MORPHINE SULFATE (MORPHINE SULFATE INJ) 1 MG IV Q6H PRN PRN PAIN SCALE 4-6 Moderate LACTOBACILLUS ACIDOPHILUS (PROBIOTIC ACIDOPHILUS ) 1 CAP PO TID ONDANSETRON (ZOFRAN) 4 MG IV Q8H PRN PRN NAUSEA AND VOMITING INSULIN ASPART (NovoLOG) 10 UNIT SUBQ AC INSULIN DETEMIR (LEVEMIR) 55 UNIT SUBQ BEDTIME INSULIN DETEMIR (LEVEMIR) 20 UNIT SUBQ DAILY COLLAGENASE (SANTYL OINT) 1 APPLIC TOPICAL DAILY ceFAZolin (ANCEF) 2 GM IV Q8H Reported Medications INSULIN ASPART (NovoLOG CARTRIDGE) 0 SUBQ AC HS Review of Nursing Notes Rev avail, and agree Past Medical History: Reports: Diabetes mellitus. Denies: Asthma, Atri al fib/flutter, Cancer, Congestive heart failure, COPD, Coronary artery disease, Dementia, GERD/ gastritis, Hypertension, Kidney disease/stones, Seizure disorder, Transient ischemic attack, Dyslipidemia, Gallbladder dis/s tones, GI bleed, Headache disorder, Pancreatitis, Peptic ulcer disease, Si ckle cell disease, Thyroid disorder, Urinary tract infection. Past Surgical History: Reports: , Tonsillectomy. Denies: Appen dectomy, Bariatric procedure, CABG, Carotid endarterectomy , Cholecystectomy, Dialysis shunt/AV fistula, Hernia repair, Hysterectomy, Pacema ker, Spine surgery, Bilateral tubal ligation, Breast biopsy/procedure, D C, Hip procedure, ICD, Knee procedure. Smoking status for patients 13 years old or olde r: Current every day smoker Portions of this section were scribed by Parker Ortiz on 01/04/20 at 1654 Physical Exam Vital Signs Vital Signs First Documented: Result Date Time Pulse Ox 99 01/03 162 B/P 149/98 01/03 1621 B/P Mean 115 01/03 1621 O2 Delivery Room air 01/03 162 Temp 36.7 01/03 1621 Pulse 106 01/03 1621 Resp 16 01/03 162 Last Documented: Result Date Time Pulse Ox 99 01/03 1621 B/P 149/98 01/03 1621 B/P Mean 115 01/03 1621 O2 Delivery Room air 01/03 162 Temp 36.7 01/03 1621 Pulse 106 01/03 1621 Resp 16 01/03 162 Review of Vital Signs Reviewed Focused PE General/Const General/Const Awake, Alert, Cooperative MS Head Head Atraumatic, Normocephalic Ears/Nose/Throat Ears/Nose/Throat Airway patent, Mucous membrane s moist, Pharynx NL Text/Dict Notes L ear: Edema and redness present on L ear canal. Can see the edge of the TM, which is erythematous. R ear: TM red and slightly bulging. +erythema of ear canal. +pain when pull bilat. ears MS Neck Neck Supple, No meningismus, Full range of danuta on, No adenopathy Resp/Chest Respiratory/Chest Breath sounds NL, Breath soun ds = bilat, No respiratory distress Cardiovascular Cardiovascular Heart rate NL, Regular rhythm, H eart sounds NL Skin Skin No rash, Warm, Dry Neurologic Neurologic Oriented X3, Speech NL, No motor def icits, No sensory deficits Additional PE Eyes Eyes PERRL, EOMI Text/Dict Notes Hordeolum on L lower eye Abdomen/GI Abdomen/GI Soft, Non-tender, BS normoactive, No distention Portions of this section were scribed by Parker Ortiz on 01/04/20 at 1654 Interpretation Diagnostics Point of Care Testing Pulse Oximetry Pulse Ox % 99 On: Room air Interpretation Interpreted by me, Pulse oximetr y normal Time 1621 Portions of this section were scribed by Parker Ortiz on 01/04/20 at 1654 Re-Evaluation MDM Re-Evaluation/Progress Re-Evaluation/Progress Time of Re-Eval 1635 Re-Eval Status Improved Plan Post Re-Eval Plan discharge Portions of this section were scribed by Parker Ortiz on 01/04/20 at 1654 Patient Discharge Departure Vital Signs/Condition Vital Signs First Documented: Result Date Time Pulse Ox 99 01/03 1621 B/P 149/98 01/03 1621 B/P Mean 115 01/03 1621 O2 Delivery Room air 01/03 162 Temp 36.7 01/03 1621 Pulse 106 01/03 1621 Resp 16 01/03 162 Last Documented: Result Date Time Pulse Ox 99 01/03 1621 B/P 149/98 01/03 1621 B/P Mean 115 01/03 1621 O2 Delivery Room air 01/03 162 Temp 36.7 01/03 1621 Pulse 106 01/03 1621 Resp 16 01/03 1621 All vital signs available at the time of this en try have been reviewed. Condition Stable Clinical Impression Clinical Impression Primary Impression: Bilateral otitis media Secondary Impressions: Bilateral otitis externa, Hordeolum of left eye Disposition Decision Discharge )( Discharged to Home Yes )( Time 1637 )( Date 01/04/20 Discharge/Care Plan Counseled Regarding Diagnosis, Prescriptions, Ne ed for follow-up, Smoking cessation, When to return to ED Prescriptions Amoxicillin, Naproxen, Ciprodex, Erythromycin Prescriptions Reviewed Risks, Benefits Discharge Note I have spoken with the patie nt and/or caregivers. I have explained the patient's condition, diagnoses and franchesca atment plan based on the information available to me at this time. I have answered the patient's and/ or caregiver's questions and addressed any concerns. The patient and/or careg mago have as good an understanding of the patient 's diagnosis, condition and treatment plan as can be expected at this point. The vital signs have bee n stable. The patient's condition is stable and appr opriate for discharge from the emergency department. The patient will pursue further outpatient evalu ation with the primary care physician or other designated or consulting phys ician as outlined in the discharge instructions. The patient and/or caregivers are agreeable to this plan of care and follow-up instructions have been exp lained in detail. The patient and/or caregivers have received these instructio ns in written format and have expressed an understanding of the discharge inst ructions. The patient and/or caregivers are aware that any significant change in condition or worsening of symptoms should prompt an immediate return to [facility] or the closest emergency department or a call to 911. Quality Measures Smoking Cessation Screened, tobacco user, Tobacc o cess intervention Tobacco Screening/Cessation 18 years or older, Tobacco user, Smoking cessation offered Smoking Cessation Counseling The patient was questioned r egarding their smoking habits, and I have determined , as the patient's treating physician, that ther e is a medical necessity in regards to the patient's med ical condition to provide smoking cessation program education. The patient was a dvised to stop smoking and counseled for a period of greater than 3 minutes. The patient was instructed to follow up with a primary care physician for smoking cessation and given i nformation regarding local smoking cessation programs i n the area. The patient received detailed discharge instructions as to how to stop smoking. The patient expressed an understanding of the need to follow up and the plan for smokin g cessation. Supervising Physician Note Scribe Statement Parker Ortiz 01/04/20 1640, scribing for and in the presence of Dr. Hurtado Signed By: Parker Ortiz, 01/04/20 1640 Provider Scribed Statement I personally performed the s ervices described in this documentation and reviewed the documentation that was dictated to the scrib e(s) in my presence, and it accurately records my words and actions. Haleigh Hurtado, 01/04/20 Portions of this section were scribed by Parker Ortiz on 01/04/20 at 1654 Electronically Signed by Haleigh Hurtado MD on at 1857 RPT #:[id number] END OF REPORT
[2023-04-13] MEDS ORDERED: DOXYCYCLINE 100 MG CAP PO ONE (06:27)
[2023-04-13] MEDS ORDERED: BACI/NEOMYCIN/POLY OINT 15GM TOP ONE (06:27)
[2023-04-13] MEDS ORDERED: ONDANSETRON 4 MG (ODT) TAB ONE (06:27)
[2023-04-13 06:46] LABS: Absolute Lymphocytes (CBC) 1.4 K/uL (0.7-4.9); Hematocrit 30.1 % (36.0-45.0); Lymphocytes % 11.1 % (15.3-44.8); MCV 69.6 fL (80-100); MPV 8.9 fL (7.6-11.3); RBC Red Blood Cell Count 4.32 M/uL (3.86-4.86)
[2023-04-13 06:48] LABS: Specific Gravity > 1.030 (1.005-1.030); Urine Bilirubin NEGATIVE (Negative); Urine Blood Negative (Negative); Urine Clarity Clear (Clear); Urine Color Colorless (Yellow); Urine Glucose 4+ (Over) (Negative); Urine Protein NEGATIVE (Negative); Urine Urobilinogen Normal (Normal)
[2023-04-13] MEDS ORDERED: NA CHLORIDE 0.9% 2,000 ML ONE (06:51)
[2023-04-13] MEDS ORDERED: ONDANSETRON 4 MG/2 ML VIAL ONE (06:51)
[2023-04-13] MEDS ORDERED: ACETAMINOPHEN 500 MG TAB ONE (06:51)
[2023-04-13] MEDS ORDERED: INSULIN -REGULAR HUMAN 50 UNIT/0.5 ML ML ONE ×2 (06:51→07:40)
[2023-04-13 06:54] LABS: Barbiturates NEGATIVE (NEGATIVE); Benzodiazepines NEGATIVE (NEGATIVE); Cocaine NEGATIVE (NEGATIVE); METHAMPHETAM POSITIVE (NEGATIVE); Methadone NEGATIVE (NEGATIVE); Opiates NEGATIVE (NEGATIVE); Phencyclidine NEGATIVE (NEGATIVE); THC Cannibis NEGATIVE (NEGATIVE)
[2023-04-13 07:05] LABS: ALT/SGPT 30 U/L (13-56); AST/SGOT 30 U/L (15-37); Albumin 3.3 g/dL (3.4-5.0); Alkaline Phosphatase 125 U/L (45-117); BUN Blood Urea Nitrogen 32 mg/dL (7-18); Bicarbonate 25 mEq/L (21-32); Bilirubin Direct 0.1 mg/dL (0-0.2); Bilirubin Indirect, Calculated 0.3 mg/dL (0.2-0.8); Bilirubin Total 0.4 mg/dL (0.2-1.0); Glomerular Filtration Rate 61 ml/min (=/>90); Potassium 4.3 mEq/L (3.5-5.1); Protein, Total 7.4 g/dL (6.4-8.2); Sodium Level 130 mEq/L (136-145)
[2023-04-13 07:06] LABS: Glucose Level 619 mg/dL (74-106)
[2023-04-13 07:33] LABS: Protime INR 0.91
--- NOTE | 2023-04-13 09:00 | EDPHYS ---
Physician Documentation [facility] Name: Farida Bergeron Age: 32 yrs Sex: Female : 1990 Arrival Date: 04/13/2023 Time: 05:07 Bed 8 Private MD: ED Physician Vickey Cota HPI: 04/13 05:32 This 32 yrs old Female presents to ER via EMS with complaints of Foot Pain. 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 Patient's blood sugar on arrival was greater than 500 which has prompted investigation for DKA. Patient states she receives most of her medical care from hospital in [place].. Historical: - Allergies: 05:19 No Known Allergies; kl - Home Meds: 05:19 Keppra Oral [Active]; Insulin [Active]; kl - PMHx: 05:19 Seizure; IDDM; Drug abuse; kl - PSHx: 05:19 None; kl - Immunization history:: Adult Immunizations not immunized. - Social history:: Smoking status: Patient reports the use of cigarette tobacco products, smokes one pack cigarettes per day. - Family history:: not pertinent. ROS: 06:54 Constitutional: Negative for fever, chills, and weight loss, positive generalized pain sp4 and weakness Eyes: Negative for injury, pain, redness, and discharge, ENT: Negative for injury, pain, and discharge, Neck: Negative for injury, pain, and swelling, Cardiovascular: Negative for chest pain, palpitations, and edema, Respiratory: Negative for shortness of breath, cough, wheezing, and pleuritic chest pain, Abdomen/GI: Negative for abdominal pain, nausea, vomiting, diarrhea, and constipation, Back: Negative for injury and pain, : Negative for injury, bleeding, discharge, and swelling, MS/Extremity: Negative for injury and deformity, positive right foot lesion and right foot pain Skin: Negative for injury, rash, and discoloration, positive multiple excoriations secondary to methamphetamine use Neuro: Negative for headache, weakness, numbness, tingling, and seizure, Psych: Negative for depression, anxiety, Allergy/Immunology: Negative for hives, rash, and allergies Endocrine: Negative for neck swelling, polydipsia, polyuria, polyphagia, and weight changes Hematologic/Lymphatic: Negative for swollen nodes, abnormal bleeding, and unusual bruising Exam: 06:54 Constitutional: This is a well developed, well nourished patient who is awake, alert, sp4 ill-appearing female, appears dehydrated with poor skin turgor, multiple excoriations and lesions secondary to neurotic excoriations from methamphetamine use, Patient nontoxic-appearing but quite ill-appearing. Head/Face: Normocephalic, atraumatic. Eyes: Pupils equal round and reactive to light, extra-ocular motions intact. Lids and lashes normal. Conjunctiva and sclera are not injected. Cornea within normal limits. Periorbital areas with no swelling, redness, or edema. ENT: Nares patent. No nasal discharge, no septal abnormalities noted. Tympanic membranes are normal and external auditory canals are clear. Oropharynx with no redness, swelling, or masses, exudates, or evidence of obstruction, uvula midline. Positive dry mucous membranes and poor dentition Neck: Trachea midline, no thyromegaly or masses palpated, and no cervical lymphadenopathy. Supple, full range of motion without nuchal rigidity, or vertebral point tenderness. Chest/axilla: Normal chest wall appearance and motion. Nontender with no deformity. No lesions are appreciated. Cardiovascular: Regular rate and rhythm with a normal S1 and S2. No gallops, murmurs, or rubs. Normal PMI, no JVD. No pulse deficits. Respiratory: Lungs have equal breath sounds bilaterally, clear to auscultation and percussion. No rales, rhonchi or wheezes noted. No increased work of breathing, no retractions or nasal flaring. Abdomen/GI: Soft, non-tender, with normal bowel sounds. No distension or tympany. No guarding or rebound. No evidence of tenderness throughout. Back: No spinal tenderness. No costovertebral tenderness. Skin: Warm, dry with poor skin turgor indicative of dehydration, there is multiple neurotic excoriations throughout with moderate excoriation to right foot that does not appear infected. Patient has multiple excoriation to her face. No signs of cellulitis. MS/ Extremity: Pulses equal, no cyanosis. Neurovascular intact. Full, normal range of motion. Neuro: Awake and alert, GCS 15, oriented to person, place, time, and situation. Cranial nerves II-XII grossly intact. Motor strength 5/5 in all extremities. Sensory grossly intact. Psych: Awake, alert, with orientation to person, place and time. Behavior, mood, and affect are within normal limits 06:54 ECG was reviewed by the Attending Physician. This EEG is normal sinus rhythm at a rate sp4 of 99, EKG time 0 648, rightward axis, prolonged QT, otherwise normal EKG with no ectopy Vital Signs: 05:15 BP 141 / 88; Pulse 97; Resp 16; Temp 98.5(O); Pulse Ox 100% ; Weight 61.23 kg (R); kl Height 5 ft. 6 in. ; 07:45 BP 142 / 89; Pulse 88; Resp 16; Pulse Ox 98% ; ko1 09:12 BP 136 / 82; Pulse 86; Resp 16; Pulse Ox 99% ; ko1 05:15 Body Mass Index 21.79 (61.23 kg, 167.64 cm) kl MDM: 05:52 Patient medically screened. sp4 06:54 Differential diagnosis: sprain, foreign body, arthritis, cellulitis, Neurotic sp4 excoriations. Data reviewed: vital signs, nurses notes, lab test result(s), Beta HCG: cardiac enzymes, CBC, electrolytes, hepatic panel, urinalysis, urine drug screen, EKG. Consideration of Admission/Observation Patient was admitted/placed on observation. Escalation of care including admission/observation considered. Transition of care: After a detail discussion of the patient's case, care is transferred to Vickey Cota MD. 08:55 Counseling: I had a detailed discussion with the patient and/or guardian regarding: the rn historical points, exam findings, and any diagnostic results supporting the discharge/admit diagnosis, lab results, the need for outpatient follow up, to return to the emergency department if symptoms worsen or persist or if there are any questions or concerns that arise at home. Special discussion: I discussed with the patient/guardian in detail that at this point there is no indication for admission to the hospital. It is understood, however, that if the symptoms persist or worsen the patient needs to return immediately for re-evaluation. ED course: No AG, no acidosis, glucose down to < 200. . 04/13 05:33 Order name: Test, Urine; Complete Time: 06:53 sp4 04/13 06:11 Order name: Glucose jb4 04/13 06:12 Order name: Acetaminophen; Complete Time: 07:11 sp4 04/13 06:12 Order name: Basic Metabolic Panel; Complete Time: 07:11 sp4 04/13 06:12 Order name: CBC with Diff; Complete Time: 07:20 sp4 04/13 06:12 Order name: ETOH Level; Complete Time: 07:11 sp4 04/13 06:12 Order name: Hepatic Function; Complete Time: 07:11 sp4 04/13 06:12 Order name: PT-INR; Complete Time: 08:36 sp4 04/13 06:12 Order name: Ptt, Activated; Complete Time: 08:36 sp4 04/13 06:12 Order name: Salicylate; Complete Time: 07:20 sp4 04/13 06:12 Order name: Urinalysis w/ reflexes; Complete Time: 06:53 sp4 04/13 06:12 Order name: Urine Drug Screen; Complete Time: 07:00 sp4 04/13 06:13 Order name: Blood Culture Adult (2) sp4 04/13 06:13 Order name: Lactate w/ 2H reflex if indic.; Complete Time: 07:05 sp4 04/13 06:21 Order name: Glucose, Ancillary Testing; Complete Time: 06:53 EDMS 04/13 09:03 Order name: Glucose, Ancillary Testing; Complete Time: 01:40 EDMS 04/13 06:12 Order name: EKG; Complete Time: 06:13 sp4 04/13 05:38 Order name: Accucheck Blood Glucose; Complete Time: 06:36 sp4 04/13 06:12 Order name: EKG - Nurse/Tech; Complete Time: 06:52 sp4 04/13 06:12 Order name: IV Saline Lock; Complete Time: 06:37 sp4 04/13 06:12 Order name: Labs collected and sent; Complete Time: 06:37 sp4 EC:54 Rate is 99 beats/min. Rhythm is regular, Normal Sinus Rhythm. Right axis deviation sp4 noted. NH interval is normal. QRS interval is normal. QT interval is prolonged. No Q waves. No ST changes noted. Clinical impression: No evidence of ischemia. Interpreted by me. Administered Medications: 06:36 Drug: Doxycycline PO 100 mg Route: PO; lg3 07:09 Follow up: Response: No adverse reaction lg3 06:36 Drug: Ondansetron PO 4 mg Route: PO; lg3 07:09 Follow up: Response: No adverse reaction lg3 06:36 Drug: Nahsyjbj-Xlceorzyfe-Jyhjpnsmc Topical Ointment 1 application Route: Topical; lg3 Site: affected area; 06:50 Drug: Insulin Regular Human IVP 10 units {Co-Signature: jb4 (Ilir Parks RN).} Route: lg3 IVP; Site: left jugular; 06:50 Drug: Acetaminophen PO 1000 mg Route: PO; lg3 07:07 Follow up: Response: No adverse reaction lg3 06:51 Drug: NS 0.9% IV 1000 ml Route: IV; Rate: 1 bolus; Site: left jugular; lg3 06:51 Drug: NS 0.9% IV 1000 ml Route: IV; Rate: 150 ml/hr; Site: left jugular; lg3 06:51 Drug: Ondansetron IVP 4 mg Route: IVP; Site: left jugular; lg3 07:07 Follow up: Response: No adverse reaction; No change in condition lg3 07:32 Drug: Insulin Regular Human Sub-Q 10 units {Co-Signature: ph (Kaycee Young RN).} ko1 Route: Sub-Q; Site: abdomen; Disposition Summary: 04/13/23 08:58 Discharge Ordered Location: Home rn Problem: new rn Symptoms: have improved rn Condition: Stable rn Diagnosis - Cellulitis, unspecified rn - Hyperglycemia, unspecified rn Followup: rn - With: Private Physician - When: As needed - Reason: Recheck today's complaints, Re-evaluation by your physician Discharge Instructions: - Discharge Summary Sheet rn - Cellulitis, Adult rn - Hyperglycemia rn - Blood Glucose Monitoring, Adult rn Forms: - Medication Reconciliation Form rn - Thank You Letter rn - Antibiotic embroidery patternmaker - Prescription Opioid Use rn - Bare [email or web address] rn Prescriptions: - Bactrim DS 800-160 mg Oral Tablet - take 1 tablet by ORAL route every 12 hours for 10 days; 20 tablet; Refills: 0, rn Product Selection Permitted Signatures: Dispatcher [facility] Maris Andujar RN RN kl Nieto, Roman, MD MD rn Gibson, Lacie, RN RN lg3 Jacy Ayon RN RN ko1 Diego Dumont MD MD sp4 Ilir Parks RN jb4 Kaycee Young RN ph
--- NOTE | 2023-04-13 09:00 | ER ---
Nurse's Notes [facility] Name: Farida Bergeron Age: 32 yrs Sex: Female : 1990 Arrival Date: 04/13/2023 Time: 05:07 Bed 8 Private MD: Diagnosis: Cellulitis, unspecified;Hyperglycemia, unspecified Presentation: 04/13 05:15 Chief complaint: Patient states: possible seizure after getting into argument with kl boyfriend EMS reports blood sugar reading high pt has history of seizures and IDDM took seizure medication and insulin yesterday also is concerned with wound on top of right foot last used shot up methamphetamine 3 days ago. Coronavirus screen: Vaccine status: Patient reports being unvaccinated. Ebola Screen: Patient negative for fever greater than or equal to 101.5 degrees Fahrenheit, and additional compatible Ebola Virus Disease symptoms. Initial Sepsis Screen: Does the patient meet any 2 criteria? No. Patient's initial sepsis screen is negative. Does the patient have a suspected source of infection? Yes: Skin breakdown/wound. Risk Assessment: Do you want to hurt yourself or someone else? Patient reports no desire to harm self or others. Onset of symptoms was April 13, 2023. 05:15 Method Of Arrival: EMS: [facility] 05:15 Acuity: CLARY 3 kl Triage Assessment: 05:21 General: Appears distressed, well groomed, Behavior is cooperative. Pain: Complains of kl pain in right foot Pain currently is 7 out of 10 on a pain scale. Neuro: No deficits noted. Seizure activity reported prior to arrival. Cardiovascular: No deficits noted. Respiratory: No deficits noted. Derm: numerous open areas to lower extremitites. 05:40 General: Appears unkempt. kl Historical: - Allergies: 05:19 No Known Allergies; kl - Home Meds: 05:19 Keppra Oral [Active]; Insulin [Active]; kl - PMHx: 05:19 Seizure; IDDM; Drug abuse; kl - PSHx: 05:19 None; kl - Immunization history:: Adult Immunizations not immunized. - Social history:: Smoking status: Patient reports the use of cigarette tobacco products, smokes one pack cigarettes per day. - Family history:: not pertinent. Screenin:[facility] ED Fall Risk Assessment (Adult) History of falling in the last 3 months, lg3 including since admission No falls in past 3 months (0 pts). Abuse screen: Denies threats or abuse. Denies injuries from another. Nutritional screening: No deficits noted. Tuberculosis screening: No symptoms or risk factors identified. Assessment: 06:00 General: Appears in no apparent distress. uncomfortable, Behavior is calm, cooperative. lg3 Pain: Complains of pain in head and right foot. Neuro: No deficits noted. White Agitation-Sedation Scale (RASS): 0 - Alert and Calm Level of Consciousness is awake, alert, obeys commands, Oriented to person, place, time, situation. Cardiovascular: No deficits noted. Denies chest pain, shortness of breath, Capillary refill < 3 seconds Clubbing of nail beds is absent JVD is absent Patient's skin is warm and dry. Respiratory: No deficits noted. Airway is patent Respiratory effort is even, unlabored, Respiratory pattern is regular, symmetrical. GI: No deficits noted. No signs and/or symptoms were reported involving the gastrointestinal system. Abdomen is flat, non-distended. : No deficits noted. No signs and/or symptoms were reported regarding the genitourinary system. EENT: No deficits noted. No signs and/or symptoms were reported regarding the EENT system. Derm: Skin is dry, Skin is normal, Skin temperature is warm generalized sores and scabs noted over entire body. larger sore noted to top of right foot. foot sore cleaned with soap and water and ointment applied. Musculoskeletal: Circulation, motion, and sensation intact. Range of motion: intact in all extremities. 07:45 Reassessment: Patient appears in no apparent distress at this time. No changes from ko1 previously documented assessment. Patient and/or family updated on plan of care and expected duration. Pain level reassessed. Patient is alert, oriented x 3, equal unlabored respirations, skin warm/dry/pink. Vital Signs: 05:15 BP 141 / 88; Pulse 97; Resp 16; Temp 98.5(O); Pulse Ox 100% ; Weight 61.23 kg (R); kl Height 5 ft. 6 in. ; 07:45 BP 142 / 89; Pulse 88; Resp 16; Pulse Ox 98% ; ko1 09:12 BP 136 / 82; Pulse 86; Resp 16; Pulse Ox 99% ; ko1 05:15 Body Mass Index 21.79 (61.23 kg, 167.64 cm) ED Course: 05:13 Patient arrived in ED. 05:19 Triage completed. 05:32 Diego Dumont MD is Attending Physician. sp4 05:56 Cely Malave, RN is Primary Nurse. lg3 06:00 Patient has correct armband on for positive identification. Placed in gown. Bed in low lg3 position. Call light in reach. Side rails up X 1. Client placed on continuous cardiac and pulse oximetry monitoring. NIBP monitoring applied. secured entrance monitor on. Door closed. Noise minimized. Warm blanket given. 06:35 Inserted saline lock: 20 gauge in left EJ, using aseptic technique. Blood collected. lg3 06:36 Lactate w/ 2H reflex if indic. Sent. lg3 06:37 Blood Culture Adult (2) Sent. lg3 06:37 Acetaminophen Sent. lg3 06:37 Basic Metabolic Panel Sent. lg3 06:37 CBC with Diff Sent. lg3 06:37 ETOH Level Sent. lg3 06:37 Hepatic Function Sent. lg3 06:37 PT-INR Sent. lg3 06:37 Ptt, Activated Sent. lg3 06:37 Salicylate Sent. lg3 06:37 Urinalysis w/ reflexes Sent. lg3 06:37 Urine Drug Screen Sent. lg3 06:37 Glucose Sent. lg3 07:01 Attending Physician role handed off by Diego Dumont MD rn 07:01 Vickey Cota MD is Attending Physician. rn 09:12 No provider procedures requiring assistance completed. IV discontinued, intact, ko1 bleeding controlled, No redness/swelling at site. Pressure dressing applied. 09:13 Arm band placed on right wrist. ko1 Administered Medications: 06:36 Drug: Doxycycline PO 100 mg Route: PO; lg3 07:09 Follow up: Response: No adverse reaction lg3 06:36 Drug: Ondansetron PO 4 mg Route: PO; lg3 07:09 Follow up: Response: No adverse reaction lg3 06:36 Drug: Eewfzxfy-Rlrackspbo-Rdolsjlte Topical Ointment 1 application Route: Topical; lg3 Site: affected area; 06:50 Drug: Insulin Regular Human IVP 10 units {Co-Signature: jb4 (Ilir Parks RN).} Route: lg3 IVP; Site: left jugular; 06:50 Drug: Acetaminophen PO 1000 mg Route: PO; lg3 07:07 Follow up: Response: No adverse reaction lg3 06:51 Drug: NS 0.9% IV 1000 ml Route: IV; Rate: 1 bolus; Site: left jugular; lg3 06:51 Drug: NS 0.9% IV 1000 ml Route: IV; Rate: 150 ml/hr; Site: left jugular; lg3 06:51 Drug: Ondansetron IVP 4 mg Route: IVP; Site: left jugular; lg3 07:07 Follow up: Response: No adverse reaction; No change in condition lg3 07:32 Drug: Insulin Regular Human Sub-Q 10 units {Co-Signature: ph (Kaycee Young RN).} ko1 Route: Sub-Q; Site: abdomen; Medication: 09:12 VIS not applicable for this client. ko1 Outcome: 08:58 Discharge ordered by . rn 09:12 Discharged to home ambulatory. ko1 09:12 Condition: stable 09:12 Discharge instructions given to patient, Instructed on discharge instructions, follow up and referral plans. medication usage, wound care, Demonstrated understanding of instructions, follow-up care, medications, wound care, Prescriptions given X 1. 09:28 Patient left the ED. ko1 Signatures: Maris Diaz RN Vickey Velazquez MD MD rn Gibson, Lacie, RN RN lg3 Nayana Lara Kathy, RN RN koDiego Little MD MD sp4 Ilir Parks RN jb4 Kaycee Young RN ph
[2023-04-13 09:38] VITALS: TEMP 98.5
[2023-04-13 09:50] VITALS: BP 136/82; O2SAT 99
--- NOTE | 2023-04-14 11:17 | EKG ---
Test Date: 2023-04-13 Test Time: 06:48:33 Physician/Allergy/Immunology: KARINE MEASUREMENT RESULTS: Intervals: Rate: 99 IN: 162 QRSD: 84 QT: 378 QTc: 485 [place]: P: 73 IN: 162 QRS: 94 T: 62 INTERPRETIVE STATEMENTS: Normal sinus rhythm Rightward axis Prolonged QT Abnormal ECG No previous ECG available for comparison Electronically Signed On 04-14-23 11:17:07 CDT by Sylvester [facility]
== END 2023-04-13 09:28 | disposition home or self-care (01) ==
LOC: ER 05:07
DX: L03.115 Cellulitis of right lower limb (principal); E11.65 Type 2 diabetes mellitus with hyperglycemia
CPT/HCPCS: 36415; 80048; 80076; 80143; 80179; 80307; 81003; 81025; 82077; 82947; 83605; 85025; 85610; 85730; 87040; 93005; 96372; 96374; 96375; 99285; J1815; J2405; J7030; Q0162